=== PATIENT | male | born 1950 | race Caucasian/White ===

== ENCOUNTER → 2018-01-12 11:38 | Outpatient (CLI) | payer MEDICARE, SELFPAY ==
[2018-01-12 13:03] LABS: PSA,Total- Diagnostic 7.74 ng/mL (0.0-4.0)
== END ==
PROVIDERS: Visit Provider Urology
DX: R97.20 Elevated prostate specific antigen [PSA] (principal)
CPT/HCPCS: 36415; 84153

== ENCOUNTER → 2018-02-03 10:14 | Outpatient (CLI) | payer MEDICARE, SELFPAY ==
--- NOTE | 2018-02-03 11:38 | US_ITS ---
STUDY: THYROID ULTRASOUND REASON FOR EXAM: Male, 68 years old. Thyroid nodules TECHNIQUE: Ultrasound evaluation of the thyroid was performed with real-time and static palm-scale imaging. COMPARISON: None. FINDINGS: RIGHT LOBE: The right lobe of the thyroid gland measures 4.5 x 1.5 x 1.9 cm. There is a homogeneous echotexture. There are no demonstrated solid, cystic or complex lesions. LEFT LOBE: The left lobe of the thyroid gland measures 4.5 x 1.6 x 1.9 cm. There are subtle isoechoic nodules within the left thyroid there is a 1.0 x 0.9 x 0.6 cm nodule, 1.5 x 1.0, and 0.7 x 0.5 x 0.7 cm. These appear to be somewhat hypervascular. ISTHMUS: The isthmus measures 3 . The regional lymph nodes are normal. US/Thyroid IMPRESSION: Isodense lobulated appearance of the nodules of the left thyroid. Recommend consideration for follow-up study such as nuclear medicine scan and follow-up ultrasound in 6 months to ensure stability. Comparison to a prior study would be helpful to establish stability. Electronically Signed: Daja Robertson MD at 17:21 EDT Tel , Service support ,
== END ==
PROVIDERS: Family Provider Internal Medicine; PCP Internal Medicine; Visit Provider Internal Medicine Endocrinology, Diabetes & Metabolism
DX: E04.1 Nontoxic single thyroid nodule (principal)
CPT/HCPCS: 76536

== ENCOUNTER → 2018-03-02 10:02 | Outpatient (CLI) | payer MEDICARE, SELFPAY ==
[2018-03-02 11:34] LABS: PSA,Total- Diagnostic 3.41 ng/mL (0.0-4.0)
[2018-03-04 11:16] LABS: PSA, Free 0.84 ng/mL; PSA, Free % 24.7 % (.); PSA, Total Ultrasensitive 3.4 ng/mL (0.0-4.0)
== END ==
PROVIDERS: Family Provider Internal Medicine; PCP Internal Medicine; Visit Provider Urology
DX: R97.20 Elevated prostate specific antigen [PSA] (principal)
CPT/HCPCS: 36415; 84153; 84154

== ENCOUNTER → 2019-03-24 10:44 | Outpatient (CLI) | payer MEDICARE, SELFPAY ==
[2017-02-25 12:58] VITALS: BMI 25.6
[2019-03-24 12:07] LABS: T4 Free Direct 1.26 ng/dL (0.76-1.46); Thyroid Stim Hormone (TSH) 0.57 uIU/mL (0.358-3.74)
== END ==
PROVIDERS: Family Provider Internal Medicine; PCP Family Medicine; Referring Provider Internal Medicine Endocrinology, Diabetes & Metabolism; Visit Provider Internal Medicine Endocrinology, Diabetes & Metabolism
DX: E04.1 Nontoxic single thyroid nodule (principal)
CPT/HCPCS: 36415; 84439; 84443

== ENCOUNTER 2019-06-25 09:08 | Day surgery (SDC) | payer MEDICARE, SELFPAY ==
[2019-06-18 10:09] VITALS: BP 121/77; PULSE 63; RESP 16; TEMP 36.3; O2SAT 99; BMI 25.1
--- NOTE | 2019-06-18 10:22 | SDCEKG_ITS ---
Test Reason : Blood Pressure : / mmHG Vent. Rate : 054 BPM Atrial Rate : 054 BPM P-R Int : 184 ms QRS Dur : 088 ms QT Int : 404 ms P-R-T Axes : 049 036 055 degrees QTc Int : 383 ms Sinus bradycardia Otherwise normal ECG Confirmed by PENNY BURNETT ([id number]), editor trade journal CHUNG ADHIKARI ([id number]) on 06/21/2019 1:59:53 PM Referred By: Karel Black Confirmed By:PENNY BURNETT
[2019-06-18 11:15] LABS: Hematocrit 45.1 % (40-54); Mean Corp Hgb Conc 33.3 g/dL (32-36); Mean Corpuscular Hgb 31.3 pg (27.0-32.0); Mean Corpuscular Volume 94.2 fL (80-94); Mean Platelet Vol. 10.5 fl (6.2-12.0); Platelet Count 242 K/mm3 (150-450); RBC Distribution Width SD 48.7 fl (35.1-43.9); Red Blood Count 4.79 M/mm3 (4.6-6.2); White Blood Count 5.2 K/mm3 (4.4-11.0)
[2019-06-18 11:36] LABS: Anion Gap 5 (5-15); BUN 19 mg/dL (7-18); BUN/Creat Ratio 14.3 RATIO (10-20); Calcium,Total 8.5 mg/dL (8.5-10.1); Chloride 113 mmol/L (98-107); Creatinine, Serum 1.33 mg/dL (0.70-1.30); EST Glomerular Filtration Rate 57 mL/min (>60); Est Glom Filt Rate - Afr Amer 69 mL/min (>60); Estimated Creatinine Clearance 49.01 ml/min; Glucose 105 mg/dL (74-106); Potassium 3.9 mmol/L (3.5-5.1); Sodium Level 142 mmol/L (136-145)
[2019-06-25] VITALS (8 sets, daily range): BP systolic 119–146; BP diastolic 74–90; PULSE 58–69; RESP 16–18; TEMP 36–36.6; O2SAT 96–100; BMI 24.9
--- NOTE | 2019-06-25 12:25 | PROS_PTH ---
PATIENT: LAURY SWIFT LOC: [facility] [place] U#:[id number] AGE/SX: 69/M ROOM: RE06/25/[address]: Dr. Karel Black MD : 1950 BED: DIS: 06/26/2019 SPEC #: [id number] RECD: 06/25/19 16:35 STATUS: JESUS GARCIAJoaquin #: [id number] VENTURA: 06/25/19 12:[address]: Karel Black DEPT: SURGICAL PATHOLOGY RECD BY: Vicky Smith ENTERED: 06/28/19 08:45 SP TYPE: TURP OTHR DR: Dr. Aury Owens MD Tissues: Prostate, NOS Procedures: Surgery Specimen Level IV HEADER OPERATION: Cysto, TUR, prostate, Olympus PRE-OP DIAGNOSIS: Benign prostatic hyperplasia with lower urinary symptoms TISSUE SUBMITTED: Prostate tissue MICROSCOPIC DIAGNOSIS Prostate tissue, TUR: Benign prostatic hyperplasia, glandular and stromal type. Chronic inflammation. Metallic clips and stones (gross only). EDUARD:manjeet 06/29/19 MICROSCOPIC DESCRIPTION Slides are reviewed. GROSS DESCRIPTION Received is one container labeled with the patient's name and designated prostate tissue. The specimen consists of multiple irregular fragments of pink-ulloa, rubbery, soft tissue that in aggregate weigh 5.9 gm and measure in aggregate 4 x 3.5 x 1.5 cm. Six metallic clips are noted. Multiple fragments of brown stones are also noted that in aggregate measure 1 x 0.5 x 0.1 cm and 0.1 to 0.3 cm in greatest dimension. The entire soft tissue is submitted in six cassettes. Metallic clips and the stones are for gross identification only. / EDUARD:manjeet 06/28/19 TC:5 CPT: 24635
[2019-06-25] MEDS: Cefazolin 2 GM in 0.9% Normal Saline 100 ML IV (13:45)
--- NOTE | 2019-06-25 13:59 | DCINST_ITS ---
Discharge Diet: Light diet - advance as tolerated Discharge Activity: Return to Normal Activity Instructions: Transurethral Resection of the Prostate (TURP): Home Recovery Allergies/Adverse Reactions: Allergies No Known Allergies Allergy (Verified 06/25/19 09:37) Medications to take at Discharge Oxybutynin [Ditropan] 5 mg PO DAILY 02/25/17 Tamsulosin HCl [Flomax] 0.4 mg PO DAILY 02/25/17 Levothyroxine [Synthroid] 50 mcg PO DAILY 06/18/19 Ciprofloxacin [Cipro] 500 mg PO BID #14 tab 06/25/19 Ibuprofen 600 mg PO Q4H PRN PRN #20 tab 06/25/19 The following prescriptions were given: Ciprofloxacin [Cipro] 500 mg PO BID #14 tab Prescription Printed Ibuprofen 600 mg PO Q4H PRN PRN #20 tab PRN Reason: Pain Prescription Printed Primary Care Physician: Aury Owesn MD [Primary Care Provider] - Test Results: Test results from this visit will be discussed in further detail at your follow- up appointment, if applicable. Please Follow Up With: Karel Black MD When: in 2 weeks, please call to make an appointment.
--- NOTE | 2019-06-25 14:35 | OP.PCM_ITS ---
Report of Operation Date of Procedure: 06/25/19 Pre-Operative Diagnosis: BPH with obstruction Post-Operative Diagnosis: The same Surgery/Procedure Performed:: Transurethral resection of the prostate Description of Surgical Findings:: 69-year-old male with a history of enlarged prostate presented to the hospital for transurethral resection of the prostate he has a very large prostate is failed medical therapy he also had a UroLift procedure several years ago which is not working anymore. 69-year-old male taken back to the operating room at the smooth induction of general anesthesia he was placed in dorsolithotomy position the penis and testicles were prepped and draped in usual sterile fashion went into the bladder with a 21 Maltese rigid cystourethroscope he had obstructive bilateral hypertrophy. I then pulled out the cystoscope went in with a 26 Maltese rigid resectoscope I first marked out the tissue in front of the sphincter all the way around the brain from the verumontanum to make sure this was a marked out to limit my resection I then resected the 6:[address] up to the 12:00 in the right side and then the cyclic work my way up to 12:00 in the left side I then carefully resected the apical tissue of the flapping tissue to make sure that there was no obstructing tissue make sure this all smooth against the solares during resection I did run across for UroLift clips that were removed. I then Ellik out all the chips of the bladder obtain hemostasis but a catheter in the bladder and continuous bladder irrigation had a nice wide open channel had a good flow and the sphincter was intact and patient was taken back to PACU good condition. Type of Anesthesia:: General Drains: bailey - Admit VTE Documentation VTE Present on Admission: No VTE Mechan Device Prophylaxis: SCD's
[2019-06-25] MEDS: 0.9% Normal Saline 1,000 ML 75 ML IV (16:13)
[2019-06-25] MEDS: Ciprofloxacin 500 MG Tablet PO (21:28)
[2019-06-25] MEDS: Docusate Sodium 100 MG Capsule PO (21:28)
--- NOTE | 2019-06-25 22:10 | NURSING ---
Pt up for first time since surgery. Ambulated from bed to recliner chair; tolerated well. Denies dizziness or lightheadedness. Will continue to monitor.
[2019-06-26 01:45] VITALS: BP 117/81; PULSE 62; RESP 16; TEMP 36.6; O2SAT 99
[2019-06-26] MEDS: 0.9% Normal Saline 1,000 ML 75 ML IV (05:07)
--- NOTE | 2019-06-26 06:10 | NURSING ---
CBI clamped at this time.
[2019-06-26 06:42] LABS: Hematocrit 41.6 % (40-54); Hemoglobin 13.8 g/dL (13.0-16.5); Mean Corp Hgb Conc 33.2 g/dL (32-36); Mean Corpuscular Hgb 31.4 pg (27.0-32.0); Mean Corpuscular Volume 94.8 fL (80-94); Platelet Count 197 K/mm3 (150-450); RBC Distribution Width CV 13.8 % (11.6-14.6); RBC Distribution Width SD 48.3 fl (35.1-43.9); Red Blood Count 4.39 M/mm3 (4.6-6.2); White Blood Count 6.9 K/mm3 (4.4-11.0)
[2019-06-26 07:01] LABS: Anion Gap 6 (5-15); BUN 17 mg/dL (7-18); BUN/Creat Ratio 14.4 RATIO (10-20); Chloride 116 mmol/L (98-107); Creatinine, Serum 1.18 mg/dL (0.70-1.30); EST Glomerular Filtration Rate 65 mL/min (>60); Est Glom Filt Rate - Afr Amer 79 mL/min (>60); Estimated Creatinine Clearance 53.32 ml/min; Glucose 93 mg/dL (74-106); Potassium 4.4 mmol/L (3.5-5.1); Sodium Level 145 mmol/L (136-145)
[2019-06-26 07:45] VITALS: BP 125/73; PULSE 60; RESP 16; TEMP 36.9; O2SAT 98
[2019-06-26 08:00] VITALS: PULSE 80
[2019-06-26] MEDS: Ciprofloxacin 500 MG Tablet PO (09:59)
[2019-06-26] MEDS: Docusate Sodium 100 MG Capsule PO (09:59)
[2019-06-26] MEDS: Pantoprazole Sodium 40 MG Tablet PO (09:59)
== END 2019-06-26 12:35 | disposition home or self-care (01) ==
LOC: SDC 09:09 → AC 09:10 → MS3 09:56
PROVIDERS: Family Provider Family Medicine; PCP Family Medicine; Referring Provider Urology; Visit Provider Urology
PROC: (CPT 52601; principal; 2019-06-25 12:15)
DX: N40.1 Benign prostatic hyperplasia with lower urinary tract symptoms (principal); N13.8 Other obstructive and reflux uropathy; R39.14 Feeling of incomplete bladder emptying; R35.1 Nocturia; E03.9 Hypothyroidism, unspecified; Z79.899 Other long term (current) drug therapy; Z87.891 Personal history of nicotine dependence; Z80.52 Family history of malignant neoplasm of bladder
CPT/HCPCS: 52601; 36415; 80048; 85027; 86850; 86900; 88305; 93005; J7030; J7120

== ENCOUNTER → 2019-09-14 13:33 | Outpatient (CLI) | payer MEDICARE, SELFPAY ==
[2019-06-25 15:56] VITALS: BMI 24.9
[2019-09-14 16:07] LABS: T4 Free Direct 1.12 ng/dL (0.76-1.46); Thyroid Stim Hormone (TSH) 1.21 uIU/mL (0.358-3.74)
== END ==
PROVIDERS: Family Provider Family Medicine; PCP Family Medicine; Referring Provider Internal Medicine Endocrinology, Diabetes & Metabolism; Visit Provider Internal Medicine Endocrinology, Diabetes & Metabolism
DX: E04.1 Nontoxic single thyroid nodule (principal)
CPT/HCPCS: 36415; 84439; 84443

== ENCOUNTER 2019-12-28 17:56 | Inpatient (IN) | payer MEDICARE, SELFPAY ==
[2019-06-25 15:56] VITALS: BMI 24.9
[2019-12-28 17:57] VITALS: BP 148/92; PULSE 94; RESP 18; TEMP 36.6; O2SAT 98; BMI 25.0
--- NOTE | 2019-12-28 18:35 | CT_ITS ---
STUDY: CT ABDOMEN AND PELVIS WITHOUT CONTRAST REASON FOR EXAM: Male, 69 years old. DARK URINE/HEMATURIA. Back and abdomen pain. Prior cholecystectomy. Hx of kidney stones RADIATION DOSAGE (If Supplied By Facility): CTDIvol = ( 7.48 ) mGy, DLP = ( 377.23 ) mGycm TECHNIQUE: Transaxial images were obtained from the dome of the diaphragm to the symphysis pubis without oral contrast, and without intravenous contrast. Sagittal and coronal images were reconstructed. Individualized dose optimization techniques were used for this CT. COMPARISON: None. FINDINGS: The lungs are hyperinflated compatible with COPD. Tiny bilateral pleural effusions are present. Normal liver. No intrahepatic biliary duct dilatation or liver mass. There are surgical clips in the gallbladder fossa consistent with a prior cholecystectomy. There are multiple benign calcified granulomata of the spleen. Normal pancreas. Normal bilateral adrenal glands. Normal right kidney. Normal left kidney. No hydronephrosis or renal masses. No visualized stones. Motion artifact is present across the upper anterior half of the abdomen limiting evaluation. There is a moderate size hiatal hernia composed mostly of the fundus of the stomach. Unremarkable visualized small bowel loops. There are several distal colonic diverticula consistent with diverticulosis. The remaining colonic loops are unremarkable. No bowel dilatation or obstruction. No free air or free fluid. The appendix is visualized and appears normal. There is diffuse atherosclerotic calcification of the abdominal aorta, without a demonstrated aneurysm. Normal inferior vena cava. Normal retroperitoneum. Normal urinary bladder. There are prostatic calcifications. Normal abdominal wall. There are diffuse degenerative changes of the visualized lumbar spine. CT/Abdomen/Pelvis without Cont IMPRESSION: Colonic diverticulosis. Electronically Signed: Alexander Espinoza MD at 20:16 EST , Service support ,
--- NOTE | 2019-12-28 18:36 | EKG12_ITS ---
Test Reason : WEAKNESS Blood Pressure : / mmHG Vent. Rate : 071 BPM Atrial Rate : 071 BPM P-R Int : 172 ms QRS Dur : 082 ms QT Int : 366 ms P-R-T Axes : 027 004 028 degrees QTc Int : 397 ms Normal sinus rhythm Normal ECG Confirmed by PENNY BURNETT ([id number]), loan expeditor CHUNG ADHIKARI ([id number]) on 12/30/2019 9:41:31 AM Referred By: IRLANDA Confirmed By:PENNY BURNETT
--- NOTE | 2019-12-28 18:37 | ED.VIS.GI ---
History of Present Illness Chief Complaint: Complaint Detail of Chief Complaint: dark urine Informant: Patient - Abdominal Pain/Flank Pain Onset: Yesterday Context: Gradual Onset Quality: Aching - myalgias, all over Location: - - mild lower abd aching Current Severity: Mild Maximum Severity: Mild Worsened by: Nothing Relieved by: Nothing - Nausea/Vomiting/Emesis GI Symptom: Negative for: Nausea, Vomiting - Diarrhea/Melena/Hematochezia GI Symptom: Negative for: Diarrhea, Melena, Hematochezia Associated Symptoms: Hematuria. Negative for: Dysuria, Frequency, Urgency Narrative: Patient denies any fevers but has been feeling myalgias all over since yesterday and malaise. He noticed yesterday he was urinating very dark like coffee. He started drinking more water and that cleared up some, and now today he is starting to notice it is red. He denies any clots or urinary retention. He denies any back pain. No dysuria. He had a TURP last year for BPH, noncancerous. Patient denies any recent injury, immobilization, hospitalization. - Past Medical History (1) Hypothyroidism Status: Chronic (2) BPH (benign prostatic hyperplasia) Status: Resolved Past Medical History - Allergies and Home Meds Allergies/Adverse Reactions: Allergies No Known Allergies Allergy (Verified 12/28/19 17:57) Primary Care Physician: Aury Owens MD [Primary Care Provider] - Surgical History: cholecystectomy, TURP Lives: Spouse/ Significant Other Smoking Status: Never smoker Review of Systems General: Reports: Malaise. Denies: Chills, Fever, Sweats Eyes: Denies: Visual changes - bilaterally, Diplopia ENT: Denies: Rhinorrhea, Sore throat Cardiovascular: Denies: Chest pain, Palpitations Respiratory: Denies: Dyspnea, Cough, Dyspnea on exertion Gastrointestinal: Reports: Abdominal pain. Denies: Nausea, Vomiting, Diarrhea, Melena, Hematochezia Genitourinary: Reports: Hematuria. Denies: Dysuria, Frequency Musculoskeletal: Reports: Myalgias. Denies: Arthralgias, Neck pain, Back pain, Swelling, Extremity Pain Skin: Denies: Rash, Wounds Neurological: Denies: Headache, Weakness, Numbness Physical Exam Vital Signs/Narrative: Vital Signs Temp Pulse Resp BP Pulse Ox 12/28/19 17:57 97.9 F 94 18 148/92 H 98 Inital Vital Signs reviewed: Yes General: Well nourished, Well developed, No Acute Distress - well-appearing, nad Head: Normocephalic, Atraumatic Eyes: Perrl, EOMI ENT: Moist mucous membranes, No rhinorrhea Neck: Supple, Nontender Cardiovascular: Regular rate, Regular rhythm, No murmurs Respiratory: No distress, CTA bilaterally, Chest nontender Abdomen: Soft, Nondistended, Normal bowel sounds, Tender - mild suprapubic only; otherwise, NT. Negative for: Guarding, Rebound tenderness, Pulsatile mass Back: Nontender, Normal Inspection. Negative for: CVA tenderness Extremities: Nontender, No edema. Negative for: Calf Tenderness Skin: Normal color, No rash, No Trauma Neurological: Alert, Oriented x3, Cranial nerves II-XII grossly intact, Normal Strength, Normal Sensation, Normal Gait Psychological: Normal affect, Normal Mood Diagnostic/Tx/Re-eval Impressions Abdomen/Pelvis CT 12/28/19 18:35 IMPRESSION: Colonic diverticulosis. Electronically Signed: Alexander Espinoza MD at 20:16 EST , Service support , 12/28/19 18:35 Abdomen/Pelvis without Cont [CT] Stat Laboratory Results 12/28/19 12/28/19 12/28/19 18:50 18:50 18:50 WBC 6.2 RBC 5.03 Hgb 15.2 Hct 45.8 MCV 91.1 MCH 30.2 MCHC 33.2 RDW Std Deviation 43.8 RDW Coeff of Yariel 13.1 Plt Count 200 MPV 10.2 Immature Gran % (Auto) 0.300 Neut % (Auto) 74.0 H Lymph % (Auto) 12.6 L Owen % (Auto) 12.3 H Eos % (Auto) 0.5 Baso % (Auto) 0.3 Absolute Neuts (auto) 4.6 Absolute Lymphs (auto) 0.78 L Nucleated RBC % 0 Sodium 140 Potassium 4.3 Chloride 108 H Carbon Dioxide 24.0 Anion Gap 8 BUN 30 H Creatinine 2.01 H Estim Creat Clear Calc 32.43 Est GFR (MDRD) Af Amer 43 L Est GFR (MDRD) Non-Af 35 L BUN/Creatinine Ratio 14.9 Glucose 117 H Calcium 8.2 L Total Bilirubin 0.20 AST 2577 H ALT 738 H Alkaline Phosphatase 78 Total Creatine Kinase > 28814 H Troponin I 0.060 H Total Protein 6.8 Albumin 3.0 L Globulin 3.8 Albumin/Globulin Ratio 0.8 L Lipase Urine Color Urine Clarity Urine pH Ur Specific [place] Urine Protein Urine Glucose (UA) Urine Ketones Urine Occult Blood Urine Nitrite Urine Bilirubin Urine Urobilinogen Ur Leukocyte Esterase Urine RBC Urine WBC Ur Squamous Epith Cells Urine Bacteria Coarse Granular Casts Urine Mucus 12/28/19 12/28/19 18:50 18:50 WBC RBC Hgb Hct MCV MCH MCHC RDW Std Deviation RDW Coeff of Yariel Plt Count MPV Immature Gran % (Auto) Neut % (Auto) Lymph % (Auto) Owen % (Auto) Eos % (Auto) Baso % (Auto) Absolute Neuts (auto) Absolute Lymphs (auto) Nucleated RBC % Sodium Potassium Chloride Carbon Dioxide Anion Gap BUN Creatinine Estim Creat Clear Calc Est GFR (MDRD) Af Amer Est GFR (MDRD) Non-Af BUN/Creatinine Ratio Glucose Calcium Total Bilirubin AST ALT Alkaline Phosphatase Total Creatine Kinase Troponin I Total Protein Albumin Globulin Albumin/Globulin Ratio Lipase 129 Urine Color Kailey Urine Clarity Cloudy Urine pH 6.0 Ur Specific [place] 1.015 Urine Protein 500 H Urine Glucose (UA) Normal Urine Ketones 5 H Urine Occult Blood 250 H Urine Nitrite Negative Urine Bilirubin Negative Urine Urobilinogen Normal Ur Leukocyte Esterase 25 H Urine RBC 0 SEEN Urine WBC 0-5 SEEN Ur Squamous Epith Cells 0 SEEN Urine Bacteria 1+ Coarse Granular Casts 0-5 SEEN Urine Mucus 0 SEEN - Medical Decision Making Urinalysis does show blood, but there are no red blood cells. Accordingly, his CPK returned extremely elevated, over 80,000, as above. His kidney function is acutely abnormal, likely as a result. IV fluids were given prior to the work-up being back and continued afterwards. I performed a CT given his hematuria prior to knowing the results of these other labs, it shows no mass or acute abnormality, incidental diverticulosis is noted which is probably not related to the presentation here. The patient's medications were reviewed and he is not on a statin medication. Only Synthroid at this time. The plan is for admission to the hospital, routine nephrology consult and further treatment. ED Disposition - Plan for ED Patient: Disposition: [facility] Diagnosis: Acute renal failure, Rhabdomyolysis, Elevated liver enzymes, Myoglobinuria Referrals: Aury Owens MD [Primary Care Provider] -
[2019-12-28] MEDS: Acetaminophen 500 MG Tablet 1000 MG PO (18:54)
--- NOTE | 2019-12-28 18:54 | ED.RN ---
PULLED OLD EKG FROM [facility]
[2019-12-28 18:57] LABS: Mucous, Urine 0 SEEN /hpf (<or=2+); Red Blood Cells-Urine 0 SEEN /hpf (0-5); Squamous Epithelial Cells - UA 0 SEEN /hpf (0-5)
[2019-12-28 19:00] LABS: Absolute Lymphocyte Count 0.78 X10^3/uL (0.83-4.51); Absolute Neutrophil Count 4.6 X10^3/uL (2.0-7.7); Basophil# 0.02 X10^3/uL; Basophil% 0.3 % (0-1); Eosinophil# 0.03 X10^3/uL; Eosinophils% 0.5 % (0-5); Hematocrit 45.8 % (40-54); Hemoglobin 15.2 g/dL (13.0-16.5); Lymphocyte # 0.78 X10^3/ul (4.0); Lymphocyte % 12.6 % (19-41); Mean Corp Hgb Conc 33.2 g/dL (32-36); Mean Corpuscular Hgb 30.2 pg (27.0-32.0); Mean Corpuscular Volume 91.1 fL (80-94); Mean Platelet Vol. 10.2 fl (6.2-12.0); Monocyte# 0.76 X10^3/uL; Monocyte% 12.3 % (0-10); NRBC Flagged by Analyzer 0 % (0-5); Neutrophil # 4.57 X10^3/uL (2.7-7.7); Platelet Count 200 K/mm3 (150-450); RBC Distribution Width CV 13.1 % (11.6-14.6); RBC Distribution Width SD 43.8 fl (35.1-43.9); Red Blood Count 5.03 M/mm3 (4.6-6.2); White Blood Count 6.2 K/mm3 (4.4-11.0)
[2019-12-28 19:01] LABS: Color, Urine Amber (Yellow); Glucose, Dipstick Normal (Normal); Ketone-Dipstick 5 mg/dl (Negative); Leukocyte Esterase-Dipstick 25 /ul (Negative); Nitrite-Dipstick Negative (Negative); Occult Blood-Urine 250 /ul (Negative); Protein-Dipstick 500 mg/dl (Negative); Specific Gravity, Urine 1.015 (1.002-1.030); Urine Bilirubin Dipstick Negative (Negative); Urine Clarity Cloudy (Clear); Urine Urobilinogen Normal (Normal)
[2019-12-28 19:21] LABS: Bacteria 1+ /hpf (None Seen); Coarse Granular Cast 0-5 SEEN /lpf (0-5 /lpf); White Blood Cells 0-5 SEEN /hpf (0-5)
[2019-12-28 19:30] LABS: ALB/GLOB Ratio 0.8 RATIO (0.9-2.4); AST(SGOT) 2577 U/L (15-37); Alanine Aminotransfer ALT/SGPT 738 U/L (16-61); Alkaline Phosphatase 78 U/L (45-117); Anion Gap 8 (5-15); BUN 30 mg/dL (7-18); BUN/Creat Ratio 14.9 RATIO (10-20); Calcium,Total 8.2 mg/dL (8.5-10.1); Chloride 108 mmol/L (98-107); Creatinine, Serum 2.01 mg/dL (0.70-1.30); EST Glomerular Filtration Rate 35 mL/min (>60); Est Glom Filt Rate - Afr Amer 43 mL/min (>60); Estimated Creatinine Clearance 32.43 ml/min; Globulin 3.8 g/dL (2.2-4.2); Glucose 117 mg/dL (74-106); Potassium 4.3 mmol/L (3.5-5.1); Protein, Total 6.8 g/dL (6.4-8.2); Sodium Level 140 mmol/L (136-145)
[2019-12-28 20:23] VITALS: BP 147/94; PULSE 77; RESP 16; O2SAT 98
--- NOTE | 2019-12-28 21:26 | ED.RN ---
called lab to inquire about pending lab results
[2019-12-28 21:28] LABS: CPK Total, Creatine Kinase > 80000 U/L (39-308)
[2019-12-28 21:29] LABS: Lipase 129 U/L (73-393)
--- NOTE | 2019-12-28 21:46 | PCM.HP.STD ---
Problem List (1) Hypothyroidism Status: Chronic (2) Acute renal failure Status: Acute (3) Rhabdomyolysis Status: Acute (4) Elevated liver enzymes Status: Acute (5) Myoglobinuria Status: Acute History of Present Illness Date of Admission: 12/28/19 Chief Complaint: Dark urine The patient is a 69 year old M with a significant history of BPH status post TURP; and hypothyroidism who presents emergency department with dark urine that started 2 days before presentation. Associated with his symptoms is a soreness of his abdomen. Patient was found to have elevated troponin; elevated CPK; elevated liver enzymes; urine occult blood without any RBC. Past Medical History Past Medical History (Chronic Problems): Chronic Problems Hypothyroidism (Chronic) Allergies No Known Allergies Allergy (Verified 12/28/19 17:57) Home Medications: Ambulatory Orders Medication Instructions Recorded Levothyroxine [Synthroid] 50 mcg PO DAILY 06/18/19 Ibuprofen 600 mg PO Q4H PRN PRN #20 tab 06/25/19 Surgical History: cholecystectomy, TURP Lives: Spouse/ Significant Other Smoking Status: Former smoker Alcohol: None - *Family History Maternal History Items: Heart Disease Paternal History Items: Cancer Review of Systems Constitutional: Denies: Chills, Fever, Weight Change HEENT: Denies: Head Aches, Sinus Congestion, Sinus Drainage Cardiovascular: Denies: Chest Pain, Palpitations Respiratory: Denies: Cough, Shortness of breath at rest, Sputum production Gastrointestinal: Reports: Abdominal Pain - Soreness. Denies: Nausea, Vomiting Genitourinary: Reports: - - Dark urine. Denies: Dysuria Musculoskeletal: Denies: Joint Pain, Joint Tenderness Skin: Denies: Rash, Wounds Neurological: Denies: Numbness, Tingling, Focal weakness Psychiatric: Denies: Anxiety, Depression, Homicidal Ideations, Suicidal Ideations Hematologic/ Lymphatic: Denies: Easy Bruising, Easy Bleeding VTE Information - Inpt Only VTE Present on Admission: No VTE Mechan Device Prophylaxis: None VTE Pharm Prophylaxis ordered?: Yes Patient Problems: Active and Suspected Problems Acute renal failure (Acute) Rhabdomyolysis (Acute) Elevated liver enzymes (Acute) Myoglobinuria (Acute) - Physical Exam Vitals/I&O's: Vital Signs Temp Pulse Resp BP Pulse Ox 97.9 F 77 16 147/94 H 98 12/28/19 17:57 12/28/19 20:23 02/18/20 20:23 12/28/19 20:23 12/28/19 20:23 Oxygen Delivery Method Room Air Weight: 72.575 kg Body Mass Index (BMI) 25.0 General: Alert, Oriented x3, Cooperative HEENT: Atraumatic, PERRLA, EOMI, Normocephalic Neck: Supple, No JVD, Negative Carotid Bruits Lungs: Clear to auscultation, Normal air movement Cardiovascular: Regular rate, Normal S1, Normal S2, No murmurs Abdomen: Bowel Sounds Present, Soft, Non Tender Extremities: No edema, Capillary Refill Less than 3 Seconds Skin: No rashes, No breakdown Musculoskeletal: No Tenderness to Palpation of Joints or Extremities Neurological: Cranial nerves II-XII grossly intact Psych/Mental Status: Normal Affect, Appropriate Laboratory Results 12/28/19 18:50: WBC 6.2, RBC 5.03, Hgb 15.2, Hct 45.8, MCV 91.1, MCH 30.2, MCHC 33.2, RDW Std Deviation 43.8, RDW Coeff of Yariel 13.1, Plt Count 200, MPV 10.2, Immature Gran % (Auto) 0.300, Neut % (Auto) 74.0 H, Lymph % (Auto) 12.6 L, [place] % (Auto) 12.3 H, Eos % (Auto) 0.5, Baso % (Auto) 0.3, Absolute Neuts (auto) 4.6, Absolute Lymphs (auto) 0.78 L, Nucleated RBC % 0 12/28/19 18:50: Sodium 140, Potassium 4.3, Chloride 108 H, Carbon Dioxide 24.0, Anion Gap 8, BUN 30 H, Creatinine 2.01 H, Estim Creat Clear Calc 32.43, Est GFR (MDRD) Af Amer 43 L, Est GFR (MDRD) Non-Af 35 L, BUN/Creatinine Ratio 14.9, Glucose 117 H, Calcium 8.2 L, Total Bilirubin 0.20, AST 2577 H, ALT 738 H, Alkaline Phosphatase 78, Troponin I 0.060 H, Total Protein 6.8, Albumin 3.0 L, Globulin 3.8, Albumin/Globulin Ratio 0.8 L 12/28/19 18:50: Total Creatine Kinase > 41156 H 12/28/19 18:50: Urine Color Kailey, Urine Clarity Cloudy, Urine pH 6.0, Ur Specific [place] 1.015, Urine Protein 500 H, Urine Glucose (UA) Normal, Urine Ketones 5 H, Urine Occult Blood 250 H, Urine Nitrite Negative, Urine Bilirubin Negative, Urine Urobilinogen Normal, Ur Leukocyte Esterase 25 H, Urine RBC 0 SEEN, Urine WBC 0-5 SEEN, Ur Squamous Epith Cells 0 SEEN, Urine Bacteria 1+, Coarse Granular Casts 0-5 SEEN, Urine Mucus 0 SEEN 12/28/19 18:50: Lipase 129 Current Medications Sodium Chloride 1,000 ml/ N/A 1,000 mls @ 72.575 mls/hr IV .[id number] ANUP Stop: 12/29/19 18:36 Last Admin: 12/28/19 18:54 Dose: 1 ml/kg/hr, 72.6 mls/hr Documented by: Sodium Chloride () 1,000 mls @ 250 mls/hr IV .Q4H [facility] Assessment/Plan All Active Problems BPH (benign prostatic hyperplasia) (Resolved) Acute renal failure (Acute) Rhabdomyolysis (Acute) Elevated liver enzymes (Acute) Myoglobinuria (Acute) The patient is a 69 year old M with a significant history of BPH status post TURP; and hypothyroidism who presents emergency department with dark urine that started 2 days before presentation; soreness of his abdomen; elevated troponin; elevated CPK; elevated liver enzymes; urine occult blood without any RBC consistent with rhabdomyolysis. Rhabdomyolysis Patient with elevated troponin; elevated CPK; elevated liver enzymes; urine occult blood without any RBC consistent with rhabdomyolysis. Patient reports that he has had multiple episodes of these many years ago. He denies any recent immobilization or exertion. IV fluids started emergency department. Continue normal saline infusion Will check ALYSSIA and aldolase. Elevated liver enzymes consistent with rhabdomyolysis. However will check acute hepatitis panel. Trend CPK Elevated troponin EKG shows sinus rhythm Place on telemetry Trend troponin. Likely due to rhabdomyolysis. KAREN Creatinine was 2.01 Review of old records shows that his creatinine on 06/26/2019 was 1.18. Likely secondary to Rhabdomyolysis. IV fluids as above. Avoid nephrotoxins Trend CMP. Hypothyroidism Synthroid continued Prophylaxis Subcutaneous Lovenox Code Visit Inpatient E&M: 35060 Init Hosp L3
[2019-12-28 22:13] VITALS: BP 152/94; PULSE 70; RESP 15; TEMP 37.1; O2SAT 98
[2019-12-28] MEDS: 0.9% Normal Saline 1,000 ML 250 ML IV (22:17)
[2019-12-28 22:18] VITALS: BP 152/94; PULSE 70; RESP 15; TEMP 37.1; O2SAT 98
[2019-12-28 22:59] VITALS: BP 151/93; PULSE 72; RESP 16; TEMP 36.6; O2SAT 99
[2019-12-28 23:00] VITALS: BMI 25.0
[2019-12-28 23:11] VITALS: BMI 25.1
[2019-12-29] VITALS (10 sets, daily range): BP systolic 145–151; BP diastolic 81–96; PULSE 65–84; RESP 16–18; TEMP 36.5–36.9; O2SAT 97–100
[2019-12-29] MEDS: 0.9% Normal Saline 1,000 ML 150 ML IV (02:47)
[2019-12-29 05:35] LABS: Absolute Lymphocyte Count 1.09 X10^3/uL (0.83-4.51); Absolute Neutrophil Count 2.8 X10^3/uL (2.0-7.7); Basophil# 0.02 X10^3/uL; Basophil% 0.4 % (0-1); Eosinophil# 0.03 X10^3/uL; Eosinophils% 0.7 % (0-5); Hematocrit 40.4 % (40-54); Lymphocyte # 1.09 X10^3/ul (4.0); Lymphocyte % 24.1 % (19-41); Mean Corp Hgb Conc 32.2 g/dL (32-36); Mean Corpuscular Hgb 29.5 pg (27.0-32.0); Mean Corpuscular Volume 91.6 fL (80-94); Mean Platelet Vol. 10.3 fl (6.2-12.0); Monocyte# 0.62 X10^3/uL; Monocyte% 13.7 % (0-10); NRBC Flagged by Analyzer 0 % (0-5); Neutrophil # 2.75 X10^3/uL (2.7-7.7); Neutrophil % 60.9 % (47-70); Platelet Count 183 K/mm3 (150-450); RBC Distribution Width CV 13.2 % (11.6-14.6); RBC Distribution Width SD 44.9 fl (35.1-43.9); Red Blood Count 4.41 M/mm3 (4.6-6.2); White Blood Count 4.5 K/mm3 (4.4-11.0)
[2019-12-29 05:41] LABS: International Normalized Ratio 1.1; Prothrombin Time (Protime)PT. 13.9 SECONDS (11.7-14.9)
[2019-12-29] MEDS: Levothyroxine 50 MCG Tablet PO (05:44)
[2019-12-29 06:27] LABS: ALB/GLOB Ratio 0.8 RATIO (0.9-2.4); AST(SGOT) 2502 U/L (15-37); Alanine Aminotransfer ALT/SGPT 791 U/L (16-61); Albumin, Serum 2.5 g/dL (3.2-5.0); Alkaline Phosphatase 64 U/L (45-117); Anion Gap 5 (5-15); BUN 32 mg/dL (7-18); BUN/Creat Ratio 15.7 RATIO (10-20); Calcium,Total 7.7 mg/dL (8.5-10.1); Chloride 115 mmol/L (98-107); Creatinine, Serum 2.04 mg/dL (0.70-1.30); EST Glomerular Filtration Rate 35 mL/min (>60); Est Glom Filt Rate - Afr Amer 42 mL/min (>60); Estimated Creatinine Clearance 31.95 ml/min; Globulin 3.2 g/dL (2.2-4.2); Glucose 99 mg/dL (74-106); Potassium 4.3 mmol/L (3.5-5.1); Protein, Total 5.7 g/dL (6.4-8.2); Sodium Level 142 mmol/L (136-145)
[2019-12-29] MEDS: 0.9% Normal Saline 1,000 ML 250 ML IV ×2 (09:02→13:19)
[2019-12-29] MEDS: Enoxaparin 40 MG/0.4 ML Syringe SC (10:30)
--- NOTE | 2019-12-29 11:25 | CASEMGMT ---
RN CM Face to Face with patient for initial transition planning/care coordination assessment. RN CM introduced self and role at [facility]. Patient lying in bed, alert and oriented. Patient willing to participate in assessment and is able to answer all questions appropriately. Care providers, pharmacy, and demographics verified. Patient wishes to discharge home, denies need for home health at this time. Patient states he has no further needs or concerns at this time. CM to follow for discharge planning needs that may arise. PCP: Roman Specialists: Sofia, urologist; Shantanu, neurology Preferred Pharmacy: [facility] Insurance: [employer] Prescription Benefit: yes Living Will/HPOA: yes, Leelee Reid LNOK: Living Arrangements: Patient lives with in 1 story home with no steps to enter the home. Patient states that he is independent at home. Transportation: self/ DME/HHC: Patient denies need for DME or HHC Disposition Plan: Patient to discharge home in family support and follow-up plans in place. Mira HOLTN, RN, CM
--- NOTE | 2019-12-29 13:24 | CHAPLAIN ---
Type of Pastoral Visit _x__ Initial Visit ___ Follow-up Visit ___ On-call Visit ___ General Patient Visit ___ Spiritual Assessment ___ Family Conference ___ Bereavement ___ Rapid Response ___ Code Blue ___ Other (describe below) Pastoral Care Referral From _x__ Patient ___ Family ___ Nurse ___ Physician ___ Hat Sizer ___ Master Cosmetologist ___ Other (describe below) Sacrament/Intervention _x__ Active listening ___ Anointing ___ Jain ___ Bereavement ___ Communion ___ Leah exploration ___ _x__ Life review _x__ Prayer ___ Reconciliation ___ Sacrament of Sick _x__ Supportive presence ___ Wedding ___ Other (describe below) Pastoral Comments
[2019-12-29] MEDS: oxyCODONE 5 MG Tablet PO (14:07)
--- NOTE | 2019-12-29 14:18 | PN_ITS ---
Patient Problems: Active and Suspected Problems Acute renal failure (Acute) Rhabdomyolysis (Acute) Elevated liver enzymes (Acute) Myoglobinuria (Acute) Reason for Visit: Follow-up on rhabdomyolysis Subjective: Patient was seen and examined. He complains of generalized aches. Denied any fever or chills. Denied any use of illicit drugs. Denied any new medications, no use of statins. Vitals/I&O's: Vital Signs Temp Pulse Resp BP Pulse Ox 98.5 F 65 16 151/96 H 100 12/29/19 14:08 12/29/19 14:08 12/29/19 14:08 12/29/19 14:08 12/29/19 14:08 Oxygen Delivery Method Room Air Weight: 72.6 kg Body Mass Index (BMI) 25.0 Intake and Output for Last 24 Hours 12/27/19 12/28/19 12/29/19 23:59 23:59 23:59 Intake Total 1416.67 / 1616.67 3505 / 3505 Output Total 550 / 550 Balance 1416.67 / 1616.67 2955 / 2955 General: Alert, Oriented x3, Cooperative, No apparent distress HEENT: Atraumatic, PERRLA, EOMI, Normocephalic Oral: Moist Mucosa Neck: Supple Lungs: Clear to auscultation, Normal air movement Cardiovascular: Regular rate, Regular Rhythm, Normal S1, Normal S2, No murmurs Abdomen: Bowel Sounds Present, Soft, Non Tender, Non-Distended, No Hepato- splenomegaly Extremities: No edema Skin: No rashes, No breakdown Musculoskeletal: No Tenderness to Palpation of Joints or Extremities Lymphatic: No Cervical, Supraclavicular, or Inguinal Adenopathy Neurological: Cranial nerves II-XII grossly intact, Neuro grossly intact Psych/Mental Status: Normal Affect, Appropriate Laboratory Results 12/28/19 18:50: WBC 6.2, RBC 5.03, Hgb 15.2, Hct 45.8, MCV 91.1, MCH 30.2, MCHC 33.2, RDW Std Deviation 43.8, RDW Coeff of Yariel 13.1, Plt Count 200, MPV 10.2, Immature Gran % (Auto) 0.300, Neut % (Auto) 74.0 H, Lymph % (Auto) 12.6 L, [place] % (Auto) 12.3 H, Eos % (Auto) 0.5, Baso % (Auto) 0.3, Absolute Neuts (auto) 4.6, Absolute Lymphs (auto) 0.78 L, Nucleated RBC % 0 12/28/19 18:50: Sodium 140, Potassium 4.3, Chloride 108 H, Carbon Dioxide 24.0, Anion Gap 8, BUN 30 H, Creatinine 2.01 H, Estim Creat Clear Calc 32.43, Est GFR (MDRD) Af Amer 43 L, Est GFR (MDRD) Non-Af 35 L, BUN/Creatinine Ratio 14.9, Glucose 117 H, Calcium 8.2 L, Total Bilirubin 0.20, AST 2577 H, ALT 738 H, Alkaline Phosphatase 78, Troponin I 0.060 H, Total Protein 6.8, Albumin 3.0 L, Globulin 3.8, Albumin/Globulin Ratio 0.8 L 12/28/19 18:50: Total Creatine Kinase > 70350 H 12/28/19 18:50: Urine Color Kailey, Urine Clarity Cloudy, Urine pH 6.0, Ur Specific [place] 1.015, Urine Protein 500 H, Urine Glucose (UA) Normal, Urine Ketones 5 H, Urine Occult Blood 250 H, Urine Nitrite Negative, Urine Bilirubin Negative, Urine Urobilinogen Normal, Ur Leukocyte Esterase 25 H, Urine RBC 0 SEEN, Urine WBC 0-5 SEEN, Ur Squamous Epith Cells 0 SEEN, Urine Bacteria 1+, Coarse Granular Casts 0-5 SEEN, Urine Mucus 0 SEEN 12/28/19 18:50: Lipase 129 12/29/19 00:05: Troponin I 0.066 H 12/29/19 03:26: Troponin I 0.069 H 12/29/19 05:18: Hepatitis A IgM Ab Pending, Hep Bs Antigen Pending, Hep B Core IgM Ab Pending, Hepatitis C Ab (EIA) Pending 12/29/19 05:18: WBC 4.5, RBC 4.41 L, Hgb 13.0, Hct 40.4, MCV 91.6, MCH 29.5, MCHC 32.2, RDW Std Deviation 44.9 H, RDW Coeff of Yariel 13.2, Plt Count 183, MPV 10.3, Immature Gran % (Auto) 0.200, Neut % (Auto) 60.9, Lymph % (Auto) 24.1, [place] % (Auto) 13.7 H, Eos % (Auto) 0.7, Baso % (Auto) 0.4, Absolute Neuts (auto) 2.8, Absolute Lymphs (auto) 1.09, Nucleated RBC % 0 12/29/19 05:18: PT 13.9, INR 1.1 12/29/19 05:18: Sodium 142, Potassium 4.3, Chloride 115 H, Carbon Dioxide 22.0, Anion Gap 5, BUN 32 H, Creatinine 2.04 H, Estim Creat Clear Calc 31.95, Est GFR (MDRD) Af Amer 42 L, Est GFR (MDRD) Non-Af 35 L, BUN/Creatinine Ratio 15.7, Glucose 99, Calcium 7.7 L, Total Bilirubin 0.20, AST 2502 H, ALT 791 H, Alkaline Phosphatase 64, Total Creatine Kinase 52460 H, Troponin I 0.055 H, Total Protein 5.7 L, Albumin 2.5 L, Globulin 3.2, Albumin/Globulin Ratio 0.8 L 12/29/19 05:18: ALYSSIA Screen Pending, LISA-1 Antibody Pending, SS-A/Ro IgG Antibody Pending, SS-B/La IgG Antibody Pending, Sm (Esteban) Antibody Pending, TOOL SUPERVISOR Antibody Pending, Scl-70 Scleroderma Ab Pending, Double Strand DNA Ab Pending, Centromere B Antibody Pending 12/29/19 05:18: Aldolase Pending Current Medications Enoxaparin Sodium (Lovenox) 40 mg SC DAILY [facility] Last Admin: 12/29/19 10:30 Dose: 40 mg Documented by: Glucagon () 1 mg IM .X1 PRN PRN Reason: Hypoglycemia Dextrose (Dextrose 10%-Water) 250 mls @ 999 mls/hr IV .Q16M PRN; Protocol PRN Reason: HYPOGLYCEMIA Sodium Chloride () 250 mls @ 15 mls/hr IV .[id number] PRN PRN Reason: Saline Flush Sodium Chloride () 1,000 mls @ 250 mls/hr IV .Q4H [facility] Last Admin: 12/29/19 13:19 Dose: 250 mls/hr Documented by: Levothyroxine Sodium (Synthroid) 50 mcg PO DAILY@0600 [facility] Last Admin: 12/29/19 05:44 Dose: 50 mcg Documented by: Melatonin (Melatonin) 3 mg PO QHS PRN PRN PRN Reason: INSOMNIA Ondansetron HCl (Zofran) 4 mg IV Q8H PRN PRN PRN Reason: NAUSEA/VOMITING Sodium Chloride () 10 - 40 ml IV UD PRN PRN Reason: SALINE FLUSH STROKE Vital Signs/Narrative: Vital Signs Temp Pulse Resp BP Pulse Ox 12/29/19 14:08 98.5 F 65 16 151/96 H 100 12/29/19 12:00 79 12/29/19 10:25 97.7 F L 77 18 145/81 H 97 Medical Necessity - Tobacco Use Smoking Status: Former smoker Tobacco Use: Cigarettes Assessment/Plan All Active Problems BPH (benign prostatic hyperplasia) (Resolved) Acute renal failure (Acute) Rhabdomyolysis (Acute) Elevated liver enzymes (Acute) Myoglobinuria (Acute) 1. Acute rhabdomyolysis, admitting CK was more than 80,000, nontraumatic, not on statins, no use of illicit drugs Unclear etiology, work-up for inflammatory myositis pending Continue on aggressive IV fluids, repeat CK in a.m. 2. Acute kidney injury on CKD stage III, secondary to #1, slight creatinine is 1.1, admitted with creatinine of 2.01 Continue with aggressive IV fluids, repeat blood work in a.m., if renal function continues to deteriorate, will consult nephrology 3. Elevated troponins, indeterminate, in the absence of symptoms, related to #1 and 2 Will continue to monitor 4. Hypothyroidism, on Synthroid, will check TSH 5. Elevated liver function tests, elevated AST/ALT, likely related to rhabdomyolysis, total bilirubin is normal, ALP is normal Hepatitis profile is pending, liver appeared normal on CT. No intrahepatic biliary duct dilatation or liver mass. 6. DVT PPx- Lovenox SC - will monitor renal function and change accordingly Code Visit Inpatient E&M: 46269 Subs Hosp L2
[2019-12-29 15:22] LABS: Thyroid Stim Hormone (TSH) 2.25 uIU/mL (0.358-3.74)
[2019-12-29 15:48] LABS: ALB/GLOB Ratio 0.7 RATIO (0.9-2.4); AST(SGOT) 2603 U/L (15-37); Alanine Aminotransfer ALT/SGPT 857 U/L (16-61); Albumin, Serum 2.3 g/dL (3.2-5.0); Alkaline Phosphatase 64 U/L (45-117); Anion Gap 4 (5-15); BUN 32 mg/dL (7-18); Calcium,Total 7.7 mg/dL (8.5-10.1); Chloride 119 mmol/L (98-107); Creatinine, Serum 2.29 mg/dL (0.70-1.30); EST Glomerular Filtration Rate 30 mL/min (>60); Est Glom Filt Rate - Afr Amer 37 mL/min (>60); Estimated Creatinine Clearance 28.46 ml/min; Globulin 3.1 g/dL (2.2-4.2); Glucose 89 mg/dL (74-106); Potassium 4.7 mmol/L (3.5-5.1); Protein, Total 5.4 g/dL (6.4-8.2); Sodium Level 146 mmol/L (136-145)
[2019-12-29] MEDS: 0.45% Normal Saline 1,000 ML 250 ML IV ×2 (17:07→21:42)
[2019-12-29 20:35] LABS: Amphetamine Urine VISTA NEGATIVE (<1000 ng/mL); Barbiturate Urine VISTA NEGATIVE (< 200 ng/mL); Benzodiazepine Urine VISTA NEGATIVE (< 200 ng/mL); Cocaine Urine VISTA NEGATIVE (< 300 ng/mL); Ecstacy Urine VISTA NEGATIVE (< 500 ng/mL); Methadone Urine VISTA NEGATIVE (< 300 ng/mL); PCP Urine VISTA NEGATIVE (< 25 ng/mL); THC Urine VISTA NEGATIVE (< 50 ng/mL); Vista UDS pH Range 5
[2019-12-30] VITALS (11 sets, daily range): BP systolic 136–161; BP diastolic 73–94; PULSE 60–79; RESP 16–18; TEMP 36.6–36.9; O2SAT 99–100
[2019-12-30] MEDS: 0.45% Normal Saline 1,000 ML 250 ML IV ×4 (01:45→14:05)
--- NOTE | 2019-12-30 03:33 | PCM.PN.BLA ---
Progress Note Notified that patient influenza test returned positive. Upon review patient is positive for influenza A (subtype H1). Will start on Tamiflu adjusted by creatinine clearance. STROKE Vital Signs/Narrative: Vital Signs Temp Pulse Resp BP Pulse Ox 12/30/19 01:46 98.1 F 60 16 138/82 H 99 12/30/19 01:31 67
[2019-12-30] MEDS: Oseltamivir Phosphate 30 MG Capsule PO (04:48)
[2019-12-30] MEDS: Levothyroxine 50 MCG Tablet PO (04:48)
[2019-12-30 05:06] LABS: HEPATITIS B SURFACE AG Negative (Negative); Hepatitis A IgM Antibody Negative (Negative); Hepatitis B Core AB IgM Negative (Negative)
[2019-12-30 05:41] LABS: Absolute Lymphocyte Count 1.08 X10^3/uL (0.83-4.51); Absolute Neutrophil Count 2.5 X10^3/uL (2.0-7.7); Basophil# 0.01 X10^3/uL; Basophil% 0.2 % (0-1); Eosinophil# 0.07 X10^3/uL; Eosinophils% 1.7 % (0-5); Hemoglobin 12.2 g/dL (13.0-16.5); Lymphocyte # 1.08 X10^3/ul (4.0); Lymphocyte % 25.5 % (19-41); Mean Corp Hgb Conc 32.1 g/dL (32-36); Mean Corpuscular Hgb 30.1 pg (27.0-32.0); Mean Corpuscular Volume 93.8 fL (80-94); Mean Platelet Vol. 10.4 fl (6.2-12.0); Monocyte# 0.55 X10^3/uL; NRBC Flagged by Analyzer 0 % (0-5); Neutrophil # 2.52 X10^3/uL (2.7-7.7); Neutrophil % 59.6 % (47-70); Platelet Count 166 K/mm3 (150-450); Red Blood Count 4.05 M/mm3 (4.6-6.2); White Blood Count 4.2 K/mm3 (4.4-11.0)
[2019-12-30 06:43] LABS: Albumin, Serum 2.2 g/dL (3.2-5.0); BUN 34 mg/dL (7-18); Calcium,Total 7.5 mg/dL (8.5-10.1); Chloride 117 mmol/L (98-107); Creatinine, Serum 2.13 mg/dL (0.70-1.30); EST Glomerular Filtration Rate 33 mL/min (>60); Est Glom Filt Rate - Afr Amer 40 mL/min (>60); Glucose 81 mg/dL (74-106); Phosphorus 3.4 mg/dL (2.5-4.9); Potassium 4.5 mmol/L (3.5-5.1); Sodium Level 142 mmol/L (136-145)
[2019-12-30 09:23] LABS: AST(SGOT) 2272 U/L (15-37); Alanine Aminotransfer ALT/SGPT 984 U/L (16-61); Albumin, Serum 2.5 g/dL (3.2-5.0); Alkaline Phosphatase 68 U/L (45-117); Bilirubin, Direct 0.06 mg/dL (0.00-0.30); Globulin 2.7 g/dL (2.2-4.2); Protein, Total 5.2 g/dL (6.4-8.2)
[2019-12-30] MEDS: Enoxaparin 40 MG/0.4 ML Syringe SC (09:54)
[2019-12-30 10:15] LABS: CPK Total, Creatine Kinase 53670 U/L (39-308)
[2019-12-30 11:33] LABS: Hemoglobin A1c 5.6 % (4.2-6.3)
[2019-12-30 12:29] LABS: HIV - WCH Non-Reactive (Nonreactive)
--- NOTE | 2019-12-30 14:16 | NURSING ---
reviewed and agree with documentation by PRASAD Gay from 12/29/2019
[2019-12-30 15:32] LABS: ANTINUCLEAR ANTIBODIES DIRECT Negative (Negative)
[2019-12-30 15:35] LABS: Hep C Antibodies <0.1 s/co ratio (0.0-0.9)
--- NOTE | 2019-12-30 15:50 | CON.PCM_ITS ---
Consultation - Renal 12/30/19 PCP/ Referring MD: Requesting physician: [] Primary care physician: Aury Owens MD Reason for Consultation:: KAREN, rhabdomyolysis - History of Present Illness History of Present Illness: The patient is a 69 year old M who presented to the emergency room on December 28 for dark, black-colored urine for 24 hours prior to admission. He denied any drop in urine volume. He was found to be in acute renal failure with a creatinine of 2.2 with acute rhabdomyolysis with CPK greater than 80,000. His liver enzymes were elevated as well on admission and remains elevated but trending down. He has no prior history of liver disease. He noticed muscle weakness and pain around his lower abdomen andside sides and legs with ambulation. He had shoulder pain, neck pain, arm pain. He denied any fever or chills. Denied cough. He had no symptoms of nausea, vomiting, or diarrhea. He has a history of recurrent muscle weakness about 6 times in his lifetime with unclear reasons. He did admit to sick contact at home. His was diagnosed with influenza recently by urgent care. He tested positive for influenza A on admission. Urine tox screen was unremarkable. CT abdomen showed normal kidneys bilaterally. He had no history of statin therapy or NSAID use. He uses a protein supplement for years called [employer]. He denies any abdominal distention. Denied any lightheadedness, near syncope, palpitations, chest pain or syncope. Past medical history is only significant for thyroid disease. He has been going to the gym last time was . He also shovels snow in the wintertime. - Allergies Allergies: Allergies No Known Allergies Allergy (Verified 12/28/19 17:57) - Current Medications Current Medications: Current Medications Enoxaparin Sodium (Lovenox) 40 mg SC DAILY [facility] Last Admin: 12/30/19 09:54 Dose: 40 mg Documented by: Glucagon () 1 mg IM .X1 PRN PRN Reason: Hypoglycemia Dextrose (Dextrose 10%-Water) 250 mls @ 999 mls/hr IV .Q16M PRN; Protocol PRN Reason: HYPOGLYCEMIA Sodium Chloride () 250 mls @ 15 mls/hr IV .[id number] PRN PRN Reason: Saline Flush Sodium Chloride () 1,000 mls @ 250 mls/hr IV .Q4H [facility] Last Admin: 12/30/19 14:05 Dose: 250 mls/hr Documented by: Levothyroxine Sodium (Synthroid) 50 mcg PO DAILY@0600 [facility] Last Admin: 12/30/19 04:48 Dose: 50 mcg Documented by: Melatonin (Melatonin) 3 mg PO QHS PRN PRN PRN Reason: INSOMNIA Ondansetron HCl (Zofran) 4 mg IV Q8H PRN PRN PRN Reason: NAUSEA/VOMITING Oseltamivir Phosphate (Tamiflu) 30 mg PO DAILY@2200 [facility] Stop: 01/02/20 22:01 Last Admin: 12/30/19 04:48 Dose: 30 mg Documented by: Sodium Chloride () 10 - 40 ml IV UD PRN PRN Reason: SALINE FLUSH - Past Medical History Past Medical History (Chronic Problems): Chronic Problems Hypothyroidism (Chronic) - Past Surgical History Surgical History: cholecystectomy, TURP - Social History Smoking Status: Former smoker Alcohol: None - Family History Maternal History Items: Heart Disease Paternal History Items: Cancer Review of Systems Constitutional: Reports: Weakness. Denies: Anorexia, Chills, Fever, Fatigue HEENT: Denies: Head Aches Cardiovascular: Denies: Chest Pain, Edema Respiratory: Denies: Cough, Shortness of Breath Gastrointestinal: Denies: Abdominal Pain, Constipation, Diarrhea, Nausea, Vomiting Genitourinary: Reports: Hematuria, - - Dark, black-colored urine, no change in urine volume.. Denies: Dysuria, Hesitancy, Retention, Urgency Musculoskeletal: Reports: Neck Pain, Shoulder Pain, - - Diffuse muscle aches. Denies: Joint swelling Skin: Denies: Rash Neurological: Denies: Tremor, Seizures Psychiatric: Denies: Anxiety, Depression Hematologic/ Lymphatic: Denies: Anemia Patient Problems: Active and Suspected Problems Acute renal failure (Acute) Rhabdomyolysis (Acute) Elevated liver enzymes (Acute) Myoglobinuria (Acute) - Physical Exam Vitals/I&O's: Vital Signs Temp Pulse Resp BP Pulse Ox 98.1 F 71 16 136/73 H 99 12/30/19 13:56 12/30/19 13:56 12/30/19 13:56 12/30/19 13:56 12/30/19 13:56 Oxygen Delivery Method Room Air Weight: 72.6 kg Body Mass Index (BMI) 25.0 Intake and Output for Last 24 Hours 12/28/19 12/29/19 12/30/19 23:59 23:59 23:59 Intake Total 1416.67 / 1616.67 5999.17 / 6349.17 4700 / 4700 Output Total 1350 / 2300 3825 / 3825 Balance 1416.67 / 1616.67 4649.17 / 4049.17 875 / 875 General: Alert, Oriented x3, Cooperative, No apparent distress HEENT: PERRLA, EOMI Oral: Dry Mucosa Neck: Supple, No JVD Lungs: Clear to auscultation Cardiovascular: Regular rate Abdomen: Bowel Sounds Present, Soft, Non Tender, Non-Distended Extremities: No edema Skin: No rashes Musculoskeletal: No Muscle Wasting Neurological: Cranial nerves II-XII grossly intact Psych/Mental Status: Normal Affect, Appropriate, Alert and oriented to time, place, person, mood and affect Microbiology Past 72 Hours 12/29/19 13:38 Mucosa - Nasopharyngeal Respiratory Panel (PCR) - Final Influenza A (Subtype H1) Laboratory Results 12/29/19 05:18: Hepatitis A IgM Ab Negative, Hep Bs Antigen Negative, Hep B Core IgM Ab Negative, Hepatitis C Ab (EIA) <0.1 12/29/19 05:18: ALYSSIA Screen Negative 12/29/19 20:05: Urine Opiates Screen NEGATIVE, Urine Methadone Screen NEGATIVE, Ur Barbiturates Screen NEGATIVE, Ur Phencyclidine Scrn NEGATIVE, Ur Amphetamines Screen NEGATIVE, U Methamphetamin-MDMA NEGATIVE, U Benzodiazepines Scrn NEGATIVE, Urine Cocaine Screen NEGATIVE, U Cannabinoids Screen NEGATIVE, Ur Drug Screen Comment 12/30/19 05:24: Sodium 142, Potassium 4.5, Chloride 117 H, Carbon Dioxide 21.0, BUN 34 H, Creatinine 2.13 H, Estim Creat Clear Calc 30.60, Est GFR (MDRD) Af Amer 40 L, Est GFR (MDRD) Non-Af 33 L, BUN/Creatinine Ratio 16.0, Glucose 81, Calcium 7.5 L, Phosphorus 3.4, Total Creatine Kinase 91603 H, Albumin 2.2 L 12/30/19 05:24: WBC 4.2 L, RBC 4.05 L, Hgb 12.2 L, Hct 38.0 L, MCV 93.8, MCH 30.1, MCHC 32.1, RDW Std Deviation 45.0 H, RDW Coeff of Yariel 13.0, Plt Count 166, MPV 10.4, Immature Gran % (Auto) 0.000, Neut % (Auto) 59.6, Lymph % (Auto) 25.5, [place] % (Auto) 13.0 H, Eos % (Auto) 1.7, Baso % (Auto) 0.2, Absolute Neuts (auto) 2.5, Absolute Lymphs (auto) 1.08, Nucleated RBC % 0 12/30/19 05:24: Anti-Mitochondrial Ab Pending 12/30/19 05:24: HIV 1&2 Antibody Non-Reactive 12/30/19 05:24: Hemoglobin A1c 5.6 12/30/19 08:10: Total Bilirubin 0.30, Direct Bilirubin 0.06, AST 2272 H, ALT 984 H, Alkaline Phosphatase 68, Total Protein 5.2 L, Albumin 2.5 L, Globulin 2.7 12/30/19 08:10: Total Creatine Kinase 80581 H Clinical Impression(s) from Imaging Studies Abdomen/Pelvis CT 12/28/19 18:35 IMPRESSION: Colonic diverticulosis. Electronically Signed: Alexander Espinoza MD at 20:16 EST , Service support , Current Medications Enoxaparin Sodium (Lovenox) 40 mg SC DAILY [facility] Last Admin: 12/30/19 09:54 Dose: 40 mg Documented by: Glucagon () 1 mg IM .X1 PRN PRN Reason: Hypoglycemia Dextrose (Dextrose 10%-Water) 250 mls @ 999 mls/hr IV .Q16M PRN; Protocol PRN Reason: HYPOGLYCEMIA Sodium Chloride () 250 mls @ 15 mls/hr IV .[id number] PRN PRN Reason: Saline Flush Sodium Chloride () 1,000 mls @ 250 mls/hr IV .Q4H [facility] Last Admin: 12/30/19 14:05 Dose: 250 mls/hr Documented by: Levothyroxine Sodium (Synthroid) 50 mcg PO DAILY@0600 [facility] Last Admin: 12/30/19 04:48 Dose: 50 mcg Documented by: Melatonin (Melatonin) 3 mg PO QHS PRN PRN PRN Reason: INSOMNIA Ondansetron HCl (Zofran) 4 mg IV Q8H PRN PRN PRN Reason: NAUSEA/VOMITING Oseltamivir Phosphate (Tamiflu) 30 mg PO DAILY@2200 [facility] Stop: 01/02/20 22:01 Last Admin: 12/30/19 04:48 Dose: 30 mg Documented by: Sodium Chloride () 10 - 40 ml IV UD PRN PRN Reason: SALINE FLUSH Assessment/Plan All Active Problems BPH (benign prostatic hyperplasia) (Resolved) Acute renal failure (Acute) Rhabdomyolysis (Acute) Elevated liver enzymes (Acute) Myoglobinuria (Acute) 1. Acute kidney injury due to ATN from rhabdo dialysis. Baseline creatinine 1.18 in June 2019, 1.1 in 2012. Creatinine 2.0-2.29 on admission improved to 2.13 today with aggressive IV hydration. Okay to reduce IV fluid rate. Urine output good. UA with blood without RBCs consistent with myoglobinuria from rhabdomyolysis. No illicit drug use. No NSAID use history. Patient has been on protein supplement long-term. ingredients unknown. 2. Acute rhabdomyolysis suspect due to recent influenza A. Await aldolase, antimitochondrial antibody, ALYSSIA negative. CPK 80,000 down to 53,670. Continue with IV fluids. 3. Acute hepatitis with elevated liver enzymes. negative viral hepatitis studies. 4. Influenza A on Tamiflu. 5. Hypothyroidism TSH normal. Continue replacement therapy.
--- NOTE | 2019-12-30 16:45 | PN_ITS ---
Patient Problems: Active and Suspected Problems Acute renal failure (Acute) Rhabdomyolysis (Acute) Elevated liver enzymes (Acute) Myoglobinuria (Acute) Reason for Visit: Follow-up on acute rhabdomyolysis Subjective: Patient was seen and examined. He feels improved. His urine is improved, almost donnie in color. Muscle aches have improved. Denies any chest pain or dizziness or palpitation. Patient gives a strong history of having had 6 rhabdomyolysis episodes in the past. There is no known diagnosis. No family history of rhabdomyolysis. He denies any trauma or exertional work lately. He denies working out in the cold. Urine tox have been negative. Acute influenza screen is positive. His was diagnosed with influenza on the same day he was admitted. Objective: Physical exam: General: Alert, Oriented x3, Cooperative, No apparent distress HEENT: Atraumatic, PERRLA, EOMI, Normocephalic Oral: Moist Mucosa Neck: Supple Lungs: Clear to auscultation, Normal air movement Cardiovascular: Regular rate, Regular Rhythm, Normal S1, Normal S2, No murmurs Abdomen: Bowel Sounds Present, Soft, Non Tender, Non-Distended, No Hepato- splenomegaly Extremities: No edema Skin: No rashes, No breakdown Musculoskeletal: No Tenderness to Palpation of Joints or Extremities Lymphatic: No Cervical, Supraclavicular, or Inguinal Adenopathy Neurological: Cranial nerves II-XII grossly intact, Neuro grossly intact Psych/Mental Status: Normal Affect, Appropriate Vitals/I&O's: Vital Signs Temp Pulse Resp BP Pulse Ox 98.1 F 71 16 136/73 H 99 12/30/19 13:56 12/30/19 13:56 12/30/19 13:56 12/30/19 13:56 12/30/19 13:56 Oxygen Delivery Method Room Air Weight: 72.6 kg Body Mass Index (BMI) 25.0 Intake and Output for Last 24 Hours 12/28/19 12/29/19 12/30/19 23:59 23:59 23:59 Intake Total 1416.67 / 1616.67 5999.17 / 6349.17 5295.83 / 5295.83 Output Total 1350 / 2300 3825 / 3825 Balance 1416.67 / 1616.67 4649.17 / 4049.17 1470.83 / 1470.83 Microbiology Past 72 Hours 02/19/20 13:38 Mucosa - Nasopharyngeal Respiratory Panel (PCR) - Final Influenza A (Subtype H1) Laboratory Results 12/29/19 05:18: Hepatitis A IgM Ab Negative, Hep Bs Antigen Negative, Hep B Core IgM Ab Negative, Hepatitis C Ab (EIA) <0.1 12/29/19 05:18: ALYSSIA Screen Negative 12/29/19 20:05: Urine Opiates Screen NEGATIVE, Urine Methadone Screen NEGATIVE, Ur Barbiturates Screen NEGATIVE, Ur Phencyclidine Scrn NEGATIVE, Ur Amphetamines Screen NEGATIVE, U Methamphetamin-MDMA NEGATIVE, U Benzodiazepines Scrn NEGATIVE, Urine Cocaine Screen NEGATIVE, U Cannabinoids Screen NEGATIVE, Ur Drug Screen Comment 12/30/19 05:24: Sodium 142, Potassium 4.5, Chloride 117 H, Carbon Dioxide 21.0, BUN 34 H, Creatinine 2.13 H, Estim Creat Clear Calc 30.60, Est GFR (MDRD) Af Amer 40 L, Est GFR (MDRD) Non-Af 33 L, BUN/Creatinine Ratio 16.0, Glucose 81, Calcium 7.5 L, Phosphorus 3.4, Total Creatine Kinase 74049 H, Albumin 2.2 L 12/30/19 05:24: WBC 4.2 L, RBC 4.05 L, Hgb 12.2 L, Hct 38.0 L, MCV 93.8, MCH 30.1, MCHC 32.1, RDW Std Deviation 45.0 H, RDW Coeff of Yariel 13.0, Plt Count 166, MPV 10.4, Immature Gran % (Auto) 0.000, Neut % (Auto) 59.6, Lymph % (Auto) 25.5, [place] % (Auto) 13.0 H, Eos % (Auto) 1.7, Baso % (Auto) 0.2, Absolute Neuts (auto) 2.5, Absolute Lymphs (auto) 1.08, Nucleated RBC % 0 12/30/19 05:24: Anti-Mitochondrial Ab Pending 12/30/19 05:24: HIV 1&2 Antibody Non-Reactive 12/30/19 05:24: Hemoglobin A1c 5.6 12/30/19 08:10: Total Bilirubin 0.30, Direct Bilirubin 0.06, AST 2272 H, ALT 984 H, Alkaline Phosphatase 68, Total Protein 5.2 L, Albumin 2.5 L, Globulin 2.7 12/30/19 08:10: Total Creatine Kinase 95712 H Current Medications Enoxaparin Sodium (Lovenox) 40 mg SC DAILY [facility] Last Admin: 12/30/19 09:54 Dose: 40 mg Documented by: Glucagon () 1 mg IM .X1 PRN PRN Reason: Hypoglycemia Dextrose (Dextrose 10%-Water) 250 mls @ 999 mls/hr IV .Q16M PRN; Protocol PRN Reason: HYPOGLYCEMIA Sodium Chloride () 250 mls @ 15 mls/hr IV .[id number] PRN PRN Reason: Saline Flush Sodium Chloride () 1,000 mls @ 150 mls/hr IV .Q6H40M [facility] Levothyroxine Sodium (Synthroid) 50 mcg PO DAILY@0600 [facility] Last Admin: 12/30/19 04:48 Dose: 50 mcg Documented by: Melatonin (Melatonin) 3 mg PO QHS PRN PRN PRN Reason: INSOMNIA Ondansetron HCl (Zofran) 4 mg IV Q8H PRN PRN PRN Reason: NAUSEA/VOMITING Oseltamivir Phosphate (Tamiflu) 30 mg PO DAILY@2200 [facility] Stop: 01/02/20 22:01 Last Admin: 12/30/19 04:48 Dose: 30 mg Documented by: Sodium Chloride () 10 - 40 ml IV UD PRN PRN Reason: SALINE FLUSH STROKE Vital Signs/Narrative: Vital Signs Temp Pulse Resp BP Pulse Ox 12/30/19 13:56 98.1 F 71 16 136/73 H 99 12/30/19 13:21 77 Medical Necessity - Tobacco Use Smoking Status: Former smoker Tobacco Use: Cigarettes Assessment/Plan All Active Problems BPH (benign prostatic hyperplasia) (Resolved) Acute renal failure (Acute) Rhabdomyolysis (Acute) Elevated liver enzymes (Acute) Myoglobinuria (Acute) 1. Acute rhabdomyolysis due to acute viral myositis secondary to acute influenza Admitting CK was more than 80,000, EKG improvement, current CK is 53,000, nontraumatic in etiology, not on statins, no use of illicit drugs, urine drug screen is negative. Influenza screen positive for influenza A, HIV as well as hepatitis panel is negative Work-up for inflammatory myositis pending Continue on aggressive IV fluids, 2. Acute kidney injury on CKD stage III, secondary to #1,baseline creatinine is 1.1, admitted with creatinine of 2.01 Cr is currently 2.13, urine output is improved Continue with aggressive IV fluids, repeat blood work in a.m., Nephrology following 3. Elevated troponin, indeterminate, in the absence of symptoms, related to #1 and 2 Will continue to monitor 4. Hypothyroidism, on Synthroid, TSH is 2.25 5. Elevated liver function tests, elevated AST/ALT, likely related to rhabdomyolysis, total bilirubin is normal, ALP is normal Hepatitis profile is negative, liver appeared normal on CT. No intrahepatic biliary duct dilatation or liver mass. 6. DVT PPx- Lovenox SC Code Visit Inpatient E&M: 78258 Subs Hosp L2
[2019-12-30] MEDS: oxyCODONE 5 MG Tablet PO (17:56)
[2019-12-30] MEDS: 0.45% Normal Saline 1,000 ML 150 ML IV (18:57)
[2019-12-31] VITALS (10 sets, daily range): BP systolic 133–161; BP diastolic 78–105; PULSE 65–86; RESP 16–18; TEMP 36.6–37.1; O2SAT 98–100
[2019-12-31] MEDS: 0.45% Normal Saline 1,000 ML 150 ML IV ×2 (01:40→07:58)
[2019-12-31] MEDS: Levothyroxine 50 MCG Tablet PO (06:48)
[2019-12-31 07:56] LABS: ALB/GLOB Ratio 0.9 RATIO (0.9-2.4); AST(SGOT) 1314 U/L (15-37); Alanine Aminotransfer ALT/SGPT 839 U/L (16-61); Albumin, Serum 2.3 g/dL (3.2-5.0); Alkaline Phosphatase 65 U/L (45-117); Anion Gap 4 (5-15); BUN 32 mg/dL (7-18); BUN/Creat Ratio 13.7 RATIO (10-20); Calcium,Total 7.8 mg/dL (8.5-10.1); Chloride 119 mmol/L (98-107); Creatinine, Serum 2.33 mg/dL (0.70-1.30); EST Glomerular Filtration Rate 30 mL/min (>60); Est Glom Filt Rate - Afr Amer 36 mL/min (>60); Estimated Creatinine Clearance 27.98 ml/min; Globulin 2.6 g/dL (2.2-4.2); Glucose 88 mg/dL (74-106); Protein, Total 4.9 g/dL (6.4-8.2); Sodium Level 146 mmol/L (136-145)
[2019-12-31] MEDS: Enoxaparin 40 MG/0.4 ML Syringe SC (07:58)
[2019-12-31 08:26] LABS: CPK Total, Creatine Kinase 26000 U/L (39-308)
--- NOTE | 2019-12-31 10:31 | CASEMGMT ---
Social Work Note SW reviewed chart, no copies of advanced directives were found. SW met pt and introduced self and role at [facility]. Pt is alert and orientated x3. SW updated pt that advanced directives are not on pt's chart and asked pt to bring in copies. Pt states understanding. Mira Campuzano REHAB TECHNICIAN, CLINICIAN ONCOLOGY
[2019-12-31 12:02] LABS: Aldolase < 1.2 U/L (3.3-10.3)
--- NOTE | 2019-12-31 14:01 | PCM.PN.HOSP ---
Patient Problems: Active and Suspected Problems Acute renal failure (Acute) Rhabdomyolysis (Acute) Elevated liver enzymes (Acute) Myoglobinuria (Acute) Reason for Visit: Follow-up on acute rhabdomyolysis Subjective: Patient was seen and examined. He feels improved. He has improvement in his myalgia. Urine output is good. Denies fever, chills, SOB. Objective: Physical exam: General: Alert, Oriented x3, Cooperative, No apparent distress HEENT: Atraumatic, PERRLA, EOMI, Normocephalic Oral: Moist Mucosa Neck: Supple Lungs: Clear to auscultation, Normal air movement Cardiovascular: Regular rate, Regular Rhythm, Normal S1, Normal S2, No murmurs Abdomen: Bowel Sounds Present, Soft, Non Tender, Non-Distended, No Hepato-splenomegaly Extremities: No edema Skin: No rashes, No breakdown Musculoskeletal: No Tenderness to Palpation of Joints or Extremities Lymphatic: No Cervical, Supraclavicular, or Inguinal Adenopathy Neurological: Cranial nerves II-XII grossly intact, Neuro grossly intact Psych/Mental Status: Normal Affect, Appropriate Vitals/I&O's: Vital Signs Temp Pulse Resp BP Pulse Ox 98.7 F 73 18 157/81 H 99 12/31/19 11:15 12/31/19 11:15 12/31/19 11:15 12/31/19 11:15 12/31/19 11:15 Oxygen Delivery Method Room Air Weight: 72.6 kg Body Mass Index (BMI) 25.0 Intake and Output for Last 24 Hours 12/29/19 12/30/19 12/31/19 23:59 23:59 23:59 Intake Total 5999.17 / 6349.17 6848.33 / 7468.33 4165 / 4165 Output Total 1350 / 2300 5825 / 6850 2950 / 2950 Balance 4649.17 / 4049.17 1023.33 / 618.33 1215 / 1215 Microbiology Past 72 Hours 12/29/19 13:38 Mucosa - Nasopharyngeal Respiratory Panel (PCR) - Final Influenza A (Subtype H1) Laboratory Results 12/29/19 05:18: Hepatitis A IgM Ab Negative, Hep Bs Antigen Negative, Hep B Core IgM Ab Negative, Hepatitis C Ab (EIA) <0.1 12/29/19 05:18: ALYSSIA Screen Negative 12/29/19 05:18: Aldolase < 1.2 L 12/31/19 05:50: Sodium 146 H, Potassium 5.0, Chloride 119 H, Carbon Dioxide 23.0, Anion Gap 4 L, BUN 32 H, Creatinine 2.33 H, Estim Creat Clear Calc 27.98, Est GFR (MDRD) Af Amer 36 L, Est GFR (MDRD) Non-Af 30 L, BUN/Creatinine Ratio 13.7, Glucose 88, Calcium 7.8 L, Total Bilirubin 0.20, AST 1314 H, ALT 839 H, Alkaline Phosphatase 65, Total Creatine Kinase 57963 H, Total Protein 4.9 L, Albumin 2.3 L, Globulin 2.6, Albumin/Globulin Ratio 0.9 Current Medications Enoxaparin Sodium (Lovenox) 40 mg SC DAILY ON [facility] OF [facility] Last Admin: 12/31/19 07:58 Dose: 40 mg Documented by: Glucagon () 1 mg IM .X1 PRN PRN Reason: Hypoglycemia Dextrose (Dextrose 10%-Water) 250 mls @ 999 mls/hr IV .Q16M PRN; Protocol PRN Reason: HYPOGLYCEMIA Sodium Chloride () 250 mls @ 15 mls/hr IV .[id number] PRN PRN Reason: Saline Flush Sodium Chloride () 1,000 mls @ 150 mls/hr IV .Q6H40M ON [facility] OF [facility] Last Admin: 12/31/19 07:58 Dose: 150 mls/hr Documented by: Levothyroxine Sodium (Synthroid) 50 mcg PO DAILY@0600 [facility] Last Admin: 12/31/19 06:48 Dose: 50 mcg Documented by: Melatonin (Melatonin) 3 mg PO QHS PRN PRN PRN Reason: INSOMNIA Ondansetron HCl (Zofran) 4 mg IV Q8H PRN PRN PRN Reason: NAUSEA/VOMITING Oseltamivir Phosphate (Tamiflu) 30 mg PO DAILY@2200 ON [facility] OF [facility] Stop: 01/02/20 22:01 Last Admin: 12/30/19 21:40 Dose: Not Given Documented by: Sodium Chloride () 10 - 40 ml IV UD PRN PRN Reason: SALINE FLUSH STROKE Vital Signs/Narrative: Vital Signs Temp Pulse Resp BP Pulse Ox 12/31/19 11:15 98.7 F 73 18 157/81 H 99 Medical Necessity - Tobacco Use Smoking Status: Former smoker Tobacco Use: Cigarettes Assessment/Plan All Active Problems BPH (benign prostatic hyperplasia) (Resolved) Acute renal failure (Acute) Rhabdomyolysis (Acute) Elevated liver enzymes (Acute) Myoglobinuria (Acute) 1. Acute rhabdomyolysis due to acute viral myositis secondary to acute influenza Admitting CK was more than 80,000, EKG improvement, current CK is 26,000, nontraumatic in etiology, not on statins, no use of illicit drugs, urine drug screen is negative. Influenza screen positive for influenza A, HIV as well as hepatitis panel is negative Work-up for inflammatory myositis pending Continue on aggressive IV fluids, 2. Acute kidney injury on CKD stage III, secondary to #1,baseline creatinine is 1.1, admitted with creatinine of 2.01 Cr is currently 2.13, urine output is improved Continue with aggressive IV fluids, repeat blood work in a.m., Nephrology following 3. Elevated troponin, indeterminate, in the absence of symptoms, related to #1 and 2 Will continue to monitor 4. Hypothyroidism, on Synthroid, TSH is 2.25 5. Elevated liver function tests, elevated AST/ALT, likely related to rhabdomyolysis, AST/ALT is improving. Total bilirubin is normal, ALP is normal Hepatitis profile is negative, liver appeared normal on CT. No intrahepatic biliary duct dilatation or liver mass. 6. DVT PPx- Lovenox SC Code Visit Inpatient E&M: 01502 Subs Hosp L2
[2019-12-31] MEDS: 0.45% Normal Saline 1,000 ML 200 ML IV ×3 (14:26→21:15)
[2019-12-31 15:21] LABS: Anti-Mitochondrial AB <20.0 Units (0.0-20.0)
[2019-12-31] MEDS: Oseltamivir Phosphate 30 MG Capsule PO (21:15)
[2019-12-31] MEDS: amLODIPine 5 MG Tablet PO (21:22)
[2020-01-01] VITALS (11 sets, daily range): BP systolic 140–156; BP diastolic 83–93; PULSE 62–79; RESP 18; TEMP 36.6–36.9; O2SAT 95–98
[2020-01-01] MEDS: 0.45% Normal Saline 1,000 ML 200 ML IV ×2 (01:44→06:49)
[2020-01-01] MEDS: Levothyroxine 50 MCG Tablet PO (05:05)
[2020-01-01 07:38] LABS: Albumin, Serum 2.2 g/dL (3.2-5.0); BUN 34 mg/dL (7-18); BUN/Creat Ratio 13.8 RATIO (10-20); CPK Total, Creatine Kinase 8623 U/L (39-308); Calcium,Total 8.1 mg/dL (8.5-10.1); Chloride 118 mmol/L (98-107); Creatinine, Serum 2.47 mg/dL (0.70-1.30); EST Glomerular Filtration Rate 28 mL/min (>60); Est Glom Filt Rate - Afr Amer 34 mL/min (>60); Estimated Creatinine Clearance 26.39 ml/min; Glucose 88 mg/dL (74-106); Phosphorus 3.3 mg/dL (2.5-4.9); Potassium 4.8 mmol/L (3.5-5.1); Sodium Level 146 mmol/L (136-145)
[2020-01-01 08:48] LABS: AST(SGOT) 676 U/L (15-37); Alanine Aminotransfer ALT/SGPT 743 U/L (16-61); Albumin, Serum 2.2 g/dL (3.2-5.0); Alkaline Phosphatase 69 U/L (45-117); Bilirubin, Direct 0.12 mg/dL (0.00-0.30); Protein, Total 5.2 g/dL (6.4-8.2)
[2020-01-01] MEDS: amLODIPine 5 MG Tablet PO (09:19)
[2020-01-01] MEDS: Enoxaparin 40 MG/0.4 ML Syringe SC (09:19)
[2020-01-01] MEDS: 0.45% Normal Saline 1,000 ML 150 ML IV ×3 (12:57→20:48)
--- NOTE | 2020-01-01 13:22 | PCM.PN.HOSP ---
Patient Problems: Active and Suspected Problems Acute renal failure (Acute) Rhabdomyolysis (Acute) Elevated liver enzymes (Acute) Myoglobinuria (Acute) Reason for Visit: Follow-up on acute rhabdomyolysis Subjective: Patient was seen and examined. He feels like his strength is coming back slowly. He feels less fatigue. Denied headache, dizziness or breathing problems. Objective: Physical exam: General: Alert, Oriented x3, Cooperative, No apparent distress HEENT: Atraumatic, PERRLA, EOMI, Normocephalic Oral: Moist Mucosa Neck: Supple Lungs: Clear to auscultation, Normal air movement Cardiovascular: Regular rate, Regular Rhythm, Normal S1, Normal S2, No murmurs Abdomen: Bowel Sounds Present, Soft, Non Tender, Non-Distended, No Hepato-splenomegaly Extremities: No edema Skin: No rashes, No breakdown Musculoskeletal: No Tenderness to Palpation of Joints or Extremities Lymphatic: No Cervical, Supraclavicular, or Inguinal Adenopathy Neurological: Cranial nerves II-XII grossly intact, Neuro grossly intact Psych/Mental Status: Normal Affect, Appropriate Vitals/I&O's: Vital Signs Temp Pulse Resp BP Pulse Ox 98 F 73 18 146/93 H 95 01/01/20 08:00 01/01/20 08:00 01/01/20 08:00 01/01/20 08:00 01/01/20 08:00 Oxygen Delivery Method Room Air Weight: 72.6 kg Body Mass Index (BMI) 25.0 Intake and Output for Last 24 Hours 12/30/19 12/31/19 01/01/20 23:59 23:59 23:59 Intake Total 6848.33 / 7468.33 6668.33 / 7168.33 4596.67 / 4596.67 Output Total 5825 / 6850 4800 / 6350 3400 / 3400 Balance 1023.33 / 618.33 1868.33 / 818.33 1196.67 / 1196.67 Microbiology Past 72 Hours 12/29/19 13:38 Mucosa - Nasopharyngeal Respiratory Panel (PCR) - Final Influenza A (Subtype H1) Laboratory Results 12/29/19 05:18: LISA-1 Antibody Not Reportable, SS-A/Ro IgG Antibody Not Reportable, SS-B/La IgG Antibody Not Reportable, Sm (Esteban) Antibody Not Reportable, HOUSETRAILER SERVICER Antibody Not Reportable, Scl-70 Scleroderma Ab Not Reportable, Double Strand DNA Ab Not Reportable, Centromere B Antibody Not Reportable 12/30/19 05:24: Anti-Mitochondrial Ab <20.0 01/01/20 06:11: Sodium 146 H, Potassium 4.8, Chloride 118 H, Carbon Dioxide 24.0, BUN 34 H, Creatinine 2.47 H, Estim Creat Clear Calc 26.39, Est GFR (MDRD) Af Amer 34 L, Est GFR (MDRD) Non-Af 28 L, BUN/Creatinine Ratio 13.8, Glucose 88, Calcium 8.1 L, Phosphorus 3.3, Total Creatine Kinase 8623 H, Albumin 2.2 L 01/01/20 06:11: Total Bilirubin 0.30, Direct Bilirubin 0.12, AST 676 H, ALT 743 H, Alkaline Phosphatase 69, Total Protein 5.2 L, Albumin 2.2 L, Globulin 3.0 Current Medications Amlodipine Besylate (Norvasc) 5 mg PO DAILY [facility] Last Admin: 01/01/20 09:19 Dose: 5 mg Documented by: Enoxaparin Sodium (Lovenox) 40 mg SC DAILY [facility] Last Admin: 01/01/20 09:19 Dose: 40 mg Documented by: Glucagon () 1 mg IM .X1 PRN PRN Reason: Hypoglycemia Dextrose (Dextrose 10%-Water) 250 mls @ 999 mls/hr IV .Q16M PRN; Protocol PRN Reason: HYPOGLYCEMIA Sodium Chloride () 250 mls @ 15 mls/hr IV .[id number] PRN PRN Reason: Saline Flush Sodium Chloride () 1,000 mls @ 150 mls/hr IV .Q6H40M [facility] Last Admin: 01/01/20 12:57 Dose: 150 mls/hr Documented by: Levothyroxine Sodium (Synthroid) 50 mcg PO DAILY@0600 [facility] Last Admin: 01/01/20 05:05 Dose: 50 mcg Documented by: Melatonin (Melatonin) 3 mg PO QHS PRN PRN PRN Reason: INSOMNIA Ondansetron HCl (Zofran) 4 mg IV Q8H PRN PRN PRN Reason: NAUSEA/VOMITING Oseltamivir Phosphate (Tamiflu) 30 mg PO DAILY@2200 [facility] Stop: 01/02/20 22:01 Last Admin: 12/31/19 21:15 Dose: 30 mg Documented by: Sodium Chloride () 10 - 40 ml IV UD PRN PRN Reason: SALINE FLUSH Medical Necessity - Tobacco Use Smoking Status: Former smoker Tobacco Use: Cigarettes Assessment/Plan All Active Problems BPH (benign prostatic hyperplasia) (Resolved) Acute renal failure (Acute) Rhabdomyolysis (Acute) Elevated liver enzymes (Acute) Myoglobinuria (Acute) 1. Acute rhabdomyolysis due to acute viral myositis secondary to acute influenza Admitting CK was more than 80,000, EKG improvement, current CK is 8623, nontraumatic in etiology, not on statins, no use of illicit drugs, urine drug screen is negative. Influenza screen positive for influenza A, HIV as well as hepatitis panel is negative Work-up for inflammatory myositis pending Continue on aggressive IV fluids at 150mls/hr 2. Acute kidney injury on CKD stage III, secondary to #1,baseline creatinine is 1.1, admitted with creatinine of 2.01 Cr is currently 2.47, polyuria present >8L urine in the last 24 hours Continue with decreased IVF 150mls/hr, repeat blood work in a.m., Nephrology following 3. Elevated blood pressure without diagnosis of hypertension, blood pressure better controlled with start of amlodipine Will continue amlodipine 5 mg daily 4. Elevated troponin, indeterminate, in the absence of symptoms, related to #1 and 2 Will continue to monitor 5. Hypothyroidism, on Synthroid, TSH is 2.25 6. Elevated liver function tests, elevated AST/ALT, likely related to rhabdomyolysis, AST/ALT is improving. Total bilirubin is normal, ALP is normal Hepatitis profile is negative, liver appeared normal on CT. No intrahepatic biliary duct dilatation or liver mass. 7. DVT PPx- Lovenox SC Code Visit Inpatient E&M: 50163 Subs Hosp L2
--- NOTE | 2020-01-01 14:21 | PCM.PN.REN ---
Patient Problems: Active and Suspected Problems Acute renal failure (Acute) Rhabdomyolysis (Acute) Elevated liver enzymes (Acute) Myoglobinuria (Acute) Subjective: denies nausea, vomiting, shortness of breath. Urine output good. Creatinine rising despite iv fluids. - Physical Exam Vitals/I&O's: Vital Signs Temp Pulse Resp BP Pulse Ox 98 F 73 18 146/93 H 96 01/01/20 08:00 01/01/20 08:00 01/01/20 08:00 01/01/20 08:00 01/01/20 13:54 Oxygen Delivery Method Room Air Weight: 72.6 kg Body Mass Index (BMI) 25.0 Intake and Output for Last 24 Hours 12/30/19 12/31/19 01/01/20 23:59 23:59 23:59 Intake Total 6848.33 / 7468.33 6668.33 / 7168.33 4596.67 / 4596.67 Output Total 5825 / 6850 4800 / 6350 3400 / 3400 Balance 1023.33 / 618.33 1868.33 / 818.33 1196.67 / 1196.67 General: Alert, Oriented x3, Cooperative, No apparent distress Lungs: Clear to auscultation Cardiovascular: Regular rate Extremities: No edema Microbiology Past 72 Hours 12/29/19 13:38 Mucosa - Nasopharyngeal Respiratory Panel (PCR) - Final Influenza A (Subtype H1) Laboratory Results 12/29/19 05:18: LISA-1 Antibody Not Reportable, SS-A/Ro IgG Antibody Not Reportable, SS-B/La IgG Antibody Not Reportable, Sm (Esteban) Antibody Not Reportable, CHAIRMAN & CHIEF EXECUTIVE OFFICER Antibody Not Reportable, Scl-70 Scleroderma Ab Not Reportable, Double Strand DNA Ab Not Reportable, Centromere B Antibody Not Reportable 12/30/19 05:24: Anti-Mitochondrial Ab <20.0 01/01/20 06:11: Sodium 146 H, Potassium 4.8, Chloride 118 H, Carbon Dioxide 24.0, BUN 34 H, Creatinine 2.47 H, Estim Creat Clear Calc 26.39, Est GFR (MDRD) Af Amer 34 L, Est GFR (MDRD) Non-Af 28 L, BUN/Creatinine Ratio 13.8, Glucose 88, Calcium 8.1 L, Phosphorus 3.3, Total Creatine Kinase 8623 H, Albumin 2.2 L 02/22/20 06:11: Total Bilirubin 0.30, Direct Bilirubin 0.12, AST 676 H, ALT 743 H, Alkaline Phosphatase 69, Total Protein 5.2 L, Albumin 2.2 L, Globulin 3.0 Current Medications Amlodipine Besylate (Norvasc) 5 mg PO DAILY [facility] Last Admin: 01/01/20 09:19 Dose: 5 mg Documented by: Enoxaparin Sodium (Lovenox) 40 mg SC DAILY [facility] Last Admin: 01/01/20 09:19 Dose: 40 mg Documented by: Glucagon () 1 mg IM .X1 PRN PRN Reason: Hypoglycemia Dextrose (Dextrose 10%-Water) 250 mls @ 999 mls/hr IV .Q16M PRN; Protocol PRN Reason: HYPOGLYCEMIA Sodium Chloride () 250 mls @ 15 mls/hr IV .[id number] PRN PRN Reason: Saline Flush Sodium Chloride () 1,000 mls @ 150 mls/hr IV .Q6H40M [facility] Last Admin: 01/01/20 12:57 Dose: 150 mls/hr Documented by: Levothyroxine Sodium (Synthroid) 50 mcg PO DAILY@0600 [facility] Last Admin: 01/01/20 05:05 Dose: 50 mcg Documented by: Melatonin (Melatonin) 3 mg PO QHS PRN PRN PRN Reason: INSOMNIA Ondansetron HCl (Zofran) 4 mg IV Q8H PRN PRN PRN Reason: NAUSEA/VOMITING Oseltamivir Phosphate (Tamiflu) 30 mg PO DAILY@2200 [facility] Stop: 01/02/20 22:01 Last Admin: 12/31/19 21:15 Dose: 30 mg Documented by: Sodium Chloride () 10 - 40 ml IV UD PRN PRN Reason: SALINE FLUSH Medical Necessity - Tobacco Use Smoking Status: Former smoker Tobacco Use: Cigarettes Assessment/Plan All Active Problems BPH (benign prostatic hyperplasia) (Resolved) Acute renal failure (Acute) Rhabdomyolysis (Acute) Elevated liver enzymes (Acute) Myoglobinuria (Acute) 1. Acute kidney injury due to ATN from rhabdomyolysis. Baseline creatinine 1.18 in June 2019, 1.1 in 2012. Creatinine continues to rise at 2.47 due to ATN. Currently nonoliguric. No uremic symptoms. Continue with 1/2NSS at 150cc/hr 2. Acute rhabdomyolysis suspect due to recent influenza A. Continue with iv fluids. 3. Acute hepatitis with elevated liver enzymes. negative viral hepatitis studies. 4. Influenza A on Tamiflu.
[2020-01-01 18:39] LABS: Albumin, Serum 2.4 g/dL (3.2-5.0); BUN 38 mg/dL (7-18); Calcium,Total 8.4 mg/dL (8.5-10.1); Chloride 115 mmol/L (98-107); Creatinine, Serum 2.53 mg/dL (0.70-1.30); EST Glomerular Filtration Rate 27 mL/min (>60); Est Glom Filt Rate - Afr Amer 33 mL/min (>60); Estimated Creatinine Clearance 25.76 ml/min; Glucose 155 mg/dL (74-106); Phosphorus 2.8 mg/dL (2.5-4.9); Potassium 4.3 mmol/L (3.5-5.1); Sodium Level 144 mmol/L (136-145)
[2020-01-01] MEDS: Oseltamivir Phosphate 30 MG Capsule PO (21:32)
[2020-01-02] VITALS (12 sets, daily range): BP systolic 136–150; BP diastolic 80–92; PULSE 58–86; RESP 16–18; TEMP 36.6–37.3; O2SAT 95–99
[2020-01-02] MEDS: 0.45% Normal Saline 1,000 ML 150 ML IV ×2 (03:31→10:08)
[2020-01-02] MEDS: Levothyroxine 50 MCG Tablet PO (05:55)
[2020-01-02 06:44] LABS: ALB/GLOB Ratio 0.7 RATIO (0.9-2.4); AST(SGOT) 283 U/L (15-37); Alanine Aminotransfer ALT/SGPT 614 U/L (16-61); Albumin, Serum 2.2 g/dL (3.2-5.0); Alkaline Phosphatase 72 U/L (45-117); Anion Gap 5 (5-15); BUN 36 mg/dL (7-18); BUN/Creat Ratio 14.9 RATIO (10-20); Chloride 115 mmol/L (98-107); Creatinine, Serum 2.42 mg/dL (0.70-1.30); EST Glomerular Filtration Rate 28 mL/min (>60); Est Glom Filt Rate - Afr Amer 34 mL/min (>60); Estimated Creatinine Clearance 26.93 ml/min; Globulin 3.2 g/dL (2.2-4.2); Glucose 101 mg/dL (74-106); Potassium 4.5 mmol/L (3.5-5.1); Protein, Total 5.4 g/dL (6.4-8.2); Sodium Level 143 mmol/L (136-145)
--- NOTE | 2020-01-02 07:39 | PN_ITS ---
Patient Problems: Active and Suspected Problems Acute renal failure (Acute) Rhabdomyolysis (Acute) Elevated liver enzymes (Acute) Myoglobinuria (Acute) Reason for Visit: Follow-up on acute rhabdomyolysis Subjective: Patient was seen and examined. He denies any progressive SOB, chest pain. He has good urine output and has been drinking a lot too. Vitals/I&O's: Vital Signs Temp Pulse Resp BP Pulse Ox 99.1 F 58 L 16 143/92 H 99 01/02/20 02:14 01/02/20 04:00 01/02/20 02:14 01/02/20 02:14 01/02/20 02:14 Oxygen Delivery Method Room Air Weight: 72.6 kg Body Mass Index (BMI) 25.0 Intake and Output for Last 24 Hours 12/31/19 01/01/20 01/02/20 23:59 23:59 23:59 Intake Total 6668.33 / 7168.33 6659.17 / 6659.17 1600 / 1600 Output Total 4800 / 6350 4950 / 4950 3200 / 3200 Balance 1868.33 / 818.33 1709.17 / 1709.17 -1600 / -1600 Microbiology Past 72 Hours 12/29/19 13:38 Mucosa - Nasopharyngeal Respiratory Panel (PCR) - Final Influenza A (Subtype H1) Laboratory Results 01/01/20 06:11: Total Bilirubin 0.30, Direct Bilirubin 0.12, AST 676 H, ALT 743 H, Alkaline Phosphatase 69, Total Protein 5.2 L, Albumin 2.2 L, Globulin 3.0 01/01/20 18:09: Sodium 144, Potassium 4.3, Chloride 115 H, Carbon Dioxide 24.0, BUN 38 H, Creatinine 2.53 H, Estim Creat Clear Calc 25.76, Est GFR (MDRD) Af Amer 33 L, Est GFR (MDRD) Non-Af 27 L, BUN/Creatinine Ratio 15.0, Glucose 155 H, Calcium 8.4 L, Phosphorus 2.8, Albumin 2.4 L 01/02/20 05:54: Sodium 143, Potassium 4.5, Chloride 115 H, Carbon Dioxide 23.0, Anion Gap 5, BUN 36 H, Creatinine 2.42 H, Estim Creat Clear Calc 26.93, Est GFR (MDRD) Af Amer 34 L, Est GFR (MDRD) Non-Af 28 L, BUN/Creatinine Ratio 14.9, Glucose 101, Calcium 8.0 L, Total Bilirubin 0.30, AST 283 H, ALT 614 H, Alkaline Phosphatase 72, Total Protein 5.4 L, Albumin 2.2 L, Globulin 3.2, Albumin/Globulin Ratio 0.7 L Current Medications Amlodipine Besylate (Norvasc) 5 mg PO DAILY [facility] Last Admin: 01/01/20 09:19 Dose: 5 mg Documented by: Enoxaparin Sodium (Lovenox) 40 mg SC DAILY [facility] Last Admin: 01/01/20 09:19 Dose: 40 mg Documented by: Glucagon () 1 mg IM .X1 PRN PRN Reason: Hypoglycemia Dextrose (Dextrose 10%-Water) 250 mls @ 999 mls/hr IV .Q16M PRN; Protocol PRN Reason: HYPOGLYCEMIA Sodium Chloride () 250 mls @ 15 mls/hr IV .[id number] PRN PRN Reason: Saline Flush Sodium Chloride () 1,000 mls @ 150 mls/hr IV .Q6H40M [facility] Last Admin: 01/02/20 03:31 Dose: 150 mls/hr Documented by: Dextrose () 1,000 mls @ 50 mls/hr IV .Q20H [facility] Last Admin: 01/01/20 15:30 Dose: 50 mls/hr Documented by: Levothyroxine Sodium (Synthroid) 50 mcg PO DAILY@0600 [facility] Last Admin: 01/02/20 05:55 Dose: 50 mcg Documented by: Melatonin (Melatonin) 3 mg PO QHS PRN PRN PRN Reason: INSOMNIA Ondansetron HCl (Zofran) 4 mg IV Q8H PRN PRN PRN Reason: NAUSEA/VOMITING Oseltamivir Phosphate (Tamiflu) 30 mg PO DAILY@2200 [facility] Stop: 01/02/20 22:01 Last Admin: 01/01/20 21:32 Dose: 30 mg Documented by: Sodium Chloride () 10 - 40 ml IV UD PRN PRN Reason: SALINE FLUSH STROKE Vital Signs/Narrative: Vital Signs Pulse 01/02/20 04:00 58 L Medical Necessity - Tobacco Use Smoking Status: Former smoker Tobacco Use: Cigarettes Assessment/Plan All Active Problems BPH (benign prostatic hyperplasia) (Resolved) Acute renal failure (Acute) Rhabdomyolysis (Acute) Elevated liver enzymes (Acute) Myoglobinuria (Acute) 1. Acute rhabdomyolysis due to acute viral myositis secondary to acute influenza Admitting CK was more than 80,000, much improved, current CK is 3403 No associated trauma, no use of illicit drugs, urine drug screen is negative. Influenza screen positive for influenza A and HIV as well as hepatitis panel is negative Work-up for inflammatory myositis is negative Continue on aggressive IV fluids at 150mls/hr 2. Acute kidney injury on CKD stage III, secondary to #1,baseline creatinine is 1.1, admitted with creatinine of 2.01 Cr is currently 2.42, polyuria present >8L urine in the last 24 hours Continue with IVF at 150mls/hr, repeat blood work in a.m., Nephrology following 3. Hypertension, newly diagnosed, no h/o hypertension, BP elevated here Started on amlodipine, BP remains uncontrolled We will increase amlodipine to 10 mg p.o. daily 5. Hypothyroidism, on Synthroid, TSH is 2.25 6. Elevated liver function tests, elevated AST/ALT, likely related to rhabdomyolysis, less likely acute hepatitis AST/ALT is improving.Hepatitis profile is negative, liver appeared normal on CT. No intrahepatic biliary duct dilatation or liver mass. 7. DVT PPx- Lovenox SC 8. Disposition: Possible DC in am Code Visit Inpatient E&M: 54022 Subs Hosp L2
[2020-01-02 08:14] LABS: CPK Total, Creatine Kinase 3403 U/L (39-308)
[2020-01-02] MEDS: Enoxaparin 40 MG/0.4 ML Syringe SC (09:21)
[2020-01-02] MEDS: amLODIPine 5 MG Tablet PO (09:21)
[2020-01-02] MEDS: 0.45% Normal Saline 1,000 ML 75 ML IV (19:11)
[2020-01-02] MEDS: Oseltamivir Phosphate 30 MG Capsule PO (20:58)
[2020-01-03] VITALS (12 sets, daily range): BP systolic 137–148; BP diastolic 82–89; PULSE 65–82; RESP 16–18; TEMP 36.4–36.9; O2SAT 96–98
[2020-01-03] MEDS: Levothyroxine 50 MCG Tablet PO (06:30)
[2020-01-03 06:47] LABS: Anion Gap 7 (5-15); BUN 39 mg/dL (7-18); BUN/Creat Ratio 14.8 RATIO (10-20); Calcium,Total 8.3 mg/dL (8.5-10.1); Chloride 114 mmol/L (98-107); Creatinine, Serum 2.64 mg/dL (0.70-1.30); EST Glomerular Filtration Rate 26 mL/min (>60); Est Glom Filt Rate - Afr Amer 31 mL/min (>60); Estimated Creatinine Clearance 24.69 ml/min; Glucose 101 mg/dL (74-106); Potassium 4.3 mmol/L (3.5-5.1); Sodium Level 144 mmol/L (136-145)
[2020-01-03] MEDS: 0.45% Normal Saline 1,000 ML 75 ML IV ×2 (07:47→22:11)
[2020-01-03] MEDS: amLODIPine 10 MG Tablet PO (08:18)
[2020-01-03] MEDS: Enoxaparin 40 MG/0.4 ML Syringe SC (08:18)
--- NOTE | 2020-01-03 09:34 | PCM.PN.HOSP ---
Patient Problems: Active and Suspected Problems Acute renal failure (Acute) Rhabdomyolysis (Acute) Elevated liver enzymes (Acute) Myoglobinuria (Acute) Reason for Visit: Acute rhabdomyolysis Subjective: Patient is a 69-year-old gentleman admitted with back colored urine patient was found to have acute kidney injury in addition to acute rhabdomyolysis admitted to regular nursing floor for further management Patient CPK levels have improved kidney function however still remains elevated Objective: GENERAL: cooperative HEENT: Atraumatic; EYES; Anicteric, Normal Conjunctiva NECK; supple, normal thyroid, RESPIRATORY: Diminished to auscultation CARDIOVASCULAR: Regular S1 S2, GI: soft, normoactive bowel sounds, : No Renal angle tenderness; EXTREMITIES: No edema, no clubbing, MUSCULOSKELETAL: no muscle waisting NEURO: Awake; no lateralizing signs. SKIN: No Rash PSYCH; Flat affect Vitals/I&O's: Vital Signs Temp Pulse Resp BP Pulse Ox 97.6 F L 69 18 148/89 H 98 01/03/20 08:05 01/03/20 08:05 01/03/20 08:05 01/03/20 08:05 01/03/20 08:05 Oxygen Delivery Method Room Air Weight: 72.6 kg Body Mass Index (BMI) 25.0 Intake and Output for Last 24 Hours 01/01/20 01/02/20 01/03/20 23:59 23:59 23:59 Intake Total 6659.17 / 6659.17 6431.67 / 6431.67 3065 / 3065 Output Total 4950 / 4950 7300 / 7300 750 / 750 Balance 1709.17 / 1709.17 -868.33 / -868.33 2315 / 2315 Laboratory Results 01/03/20 05:45: Sodium 144, Potassium 4.3, Chloride 114 H, Carbon Dioxide 23.0, Anion Gap 7, BUN 39 H, Creatinine 2.64 H, Estim Creat Clear Calc 24.69, Est GFR (MDRD) Af Amer 31 L, Est GFR (MDRD) Non-Af 26 L, BUN/Creatinine Ratio 14.8, Glucose 101, Calcium 8.3 L Current Medications Amlodipine Besylate (Norvasc) 10 mg PO DAILY [facility] Last Admin: 01/03/20 08:18 Dose: 10 mg Documented by: Enoxaparin Sodium (Lovenox) 40 mg SC DAILY [facility] Last Admin: 01/03/20 08:18 Dose: 40 mg Documented by: Glucagon () 1 mg IM .X1 PRN PRN Reason: Hypoglycemia Dextrose (Dextrose 10%-Water) 250 mls @ 999 mls/hr IV .Q16M PRN; Protocol PRN Reason: HYPOGLYCEMIA Sodium Chloride () 250 mls @ 15 mls/hr IV .[id number] PRN PRN Reason: Saline Flush Dextrose () 1,000 mls @ 50 mls/hr IV .Q20H [facility] Last Admin: 01/03/20 06:30 Dose: 50 mls/hr Documented by: Sodium Chloride () 1,000 mls @ 75 mls/hr IV .[id number] [facility] Last Admin: 01/03/20 07:47 Dose: 75 mls/hr Documented by: Levothyroxine Sodium (Synthroid) 50 mcg PO DAILY@0600 [facility] Last Admin: 01/03/20 06:30 Dose: 50 mcg Documented by: Melatonin (Melatonin) 3 mg PO QHS PRN PRN PRN Reason: INSOMNIA Ondansetron HCl (Zofran) 4 mg IV Q8H PRN PRN PRN Reason: NAUSEA/VOMITING Sodium Chloride () 10 - 40 ml IV UD PRN PRN Reason: SALINE FLUSH STROKE Vital Signs/Narrative: Vital Signs Temp Pulse Resp BP Pulse Ox 01/03/20 08:05 97.6 F L 69 18 148/89 H 98 01/03/20 07:20 96 Medical Necessity - Tobacco Use Smoking Status: Former smoker Tobacco Use: Cigarettes Assessment/Plan All Active Problems BPH (benign prostatic hyperplasia) (Resolved) Acute renal failure (Acute) Rhabdomyolysis (Acute) Elevated liver enzymes (Acute) Myoglobinuria (Acute) Patient is a 69-year-old gentleman admitted with back colored urine patient was found to have acute kidney injury in addition to acute rhabdomyolysis admitted to regular nursing floor for further management 1. Acute rhabdomyolysis ?Attributed to recent viral infection influenza. Managed with IV fluids 2. Acute kidney injury ?Secondary to ATN from above patient is on IV fluids. Consult placed to nephrology patient has been seen by Dr. Sharma her notes and recommendations reviewed 3. Essential hypertension ?New diagnosis patient started on amlodipine 4. Hypothyroidism ~patient is on levothyroxine home dose continued 5. Transaminitis ?Attributed to patient rhabdo monitoring 6. DVT prophylaxis ?Lovenox Code Visit Inpatient E&M: 42214 Subs Hosp L2
--- NOTE | 2020-01-03 12:24 | PN.RENAL_ITS ---
Patient Problems: Active and Suspected Problems Acute renal failure (Acute) Rhabdomyolysis (Acute) Elevated liver enzymes (Acute) Myoglobinuria (Acute) Subjective: denies nausea, vomiting. Denies muscle aches, weakness. Appetite good. Creatinine increased to 2.6 today. Post ATN diuresis. Continue with iv fluids. - Physical Exam Vitals/I&O's: Vital Signs Temp Pulse Resp BP Pulse Ox 97.6 F L 76 18 148/89 H 98 01/03/20 08:05 01/03/20 11:15 01/03/20 08:05 01/03/20 08:05 01/03/20 08:05 Oxygen Delivery Method Room Air Weight: 72.6 kg Body Mass Index (BMI) 25.0 Intake and Output for Last 24 Hours 01/01/20 01/02/20 01/03/20 23:59 23:59 23:59 Intake Total 6659.17 / 6659.17 6431.67 / 6431.67 3065 / 3065 Output Total 4950 / 4950 7300 / 7300 750 / 750 Balance 1709.17 / 1709.17 -868.33 / -868.33 2315 / 2315 General: Alert, Oriented x3, Cooperative Lungs: Clear to auscultation Cardiovascular: Regular rate Extremities: No edema Psych/Mental Status: Alert and oriented to time, place, person, mood and affect Laboratory Results 01/03/20 05:45: Sodium 144, Potassium 4.3, Chloride 114 H, Carbon Dioxide 23.0, Anion Gap 7, BUN 39 H, Creatinine 2.64 H, Estim Creat Clear Calc 24.69, Est GFR (MDRD) Af Amer 31 L, Est GFR (MDRD) Non-Af 26 L, BUN/Creatinine Ratio 14.8, Glucose 101, Calcium 8.3 L Current Medications Amlodipine Besylate (Norvasc) 10 mg PO DAILY [facility] Last Admin: 01/03/20 08:18 Dose: 10 mg Documented by: Enoxaparin Sodium (Lovenox) 40 mg SC DAILY [facility] Last Admin: 01/03/20 08:18 Dose: 40 mg Documented by: Glucagon () 1 mg IM .X1 PRN PRN Reason: Hypoglycemia Dextrose (Dextrose 10%-Water) 250 mls @ 999 mls/hr IV .Q16M PRN; Protocol PRN Reason: HYPOGLYCEMIA Sodium Chloride () 250 mls @ 15 mls/hr IV .[id number] PRN PRN Reason: Saline Flush Dextrose () 1,000 mls @ 50 mls/hr IV .Q20H [facility] Last Admin: 01/03/20 06:30 Dose: 50 mls/hr Documented by: Sodium Chloride () 1,000 mls @ 75 mls/hr IV .[id number] [facility] Last Admin: 01/03/20 07:47 Dose: 75 mls/hr Documented by: Levothyroxine Sodium (Synthroid) 50 mcg PO DAILY@0600 [facility] Last Admin: 01/03/20 06:30 Dose: 50 mcg Documented by: Melatonin (Melatonin) 3 mg PO QHS PRN PRN PRN Reason: INSOMNIA Ondansetron HCl (Zofran) 4 mg IV Q8H PRN PRN PRN Reason: NAUSEA/VOMITING Sodium Chloride () 10 - 40 ml IV UD PRN PRN Reason: SALINE FLUSH Medical Necessity - Tobacco Use Smoking Status: Former smoker Tobacco Use: Cigarettes Assessment/Plan All Active Problems BPH (benign prostatic hyperplasia) (Resolved) Acute renal failure (Acute) Rhabdomyolysis (Acute) Elevated liver enzymes (Acute) Myoglobinuria (Acute) 1. Acute kidney injury due to ATN from rhabdomyolysis. Baseline creatinine 1.18 in June 2019 Creatinine continues to rise at 2.6 today due to ATN. Currently nonoliguric. No uremic symptoms. Continue with 1/2NSS at 150cc/hr 2. Acute rhabdomyolysis suspect due to recent influenza A. Continue with iv fluids. 3. Acute hepatitis with elevated liver enzymes. negative viral hepatitis studies. 4. Influenza A on Tamiflu. M[facility] hospitalist
[2020-01-04 01:59] VITALS: PULSE 67
[2020-01-04 02:14] VITALS: BP 132/78; PULSE 64; RESP 16; TEMP 36.6; O2SAT 95
[2020-01-04] MEDS: Levothyroxine 50 MCG Tablet PO (05:44)
[2020-01-04 07:13] LABS: ALB/GLOB Ratio 0.7 RATIO (0.9-2.4); AST(SGOT) 141 U/L (15-37); Alanine Aminotransfer ALT/SGPT 474 U/L (16-61); Albumin, Serum 2.6 g/dL (3.2-5.0); Alkaline Phosphatase 85 U/L (45-117); Anion Gap 5 (5-15); BUN 39 mg/dL (7-18); BUN/Creat Ratio 14.6 RATIO (10-20); CPK Total, Creatine Kinase 796 U/L (39-308); Calcium,Total 8.4 mg/dL (8.5-10.1); Chloride 113 mmol/L (98-107); Creatinine, Serum 2.68 mg/dL (0.70-1.30); EST Glomerular Filtration Rate 25 mL/min (>60); Est Glom Filt Rate - Afr Amer 31 mL/min (>60); Estimated Creatinine Clearance 24.32 ml/min; Globulin 3.7 g/dL (2.2-4.2); Glucose 99 mg/dL (74-106); Potassium 4.2 mmol/L (3.5-5.1); Protein, Total 6.3 g/dL (6.4-8.2); Sodium Level 143 mmol/L (136-145)
[2020-01-04 07:46] VITALS: BP 134/82; PULSE 64; RESP 16; TEMP 36.5; O2SAT 98
[2020-01-04] MEDS: amLODIPine 10 MG Tablet PO (07:51)
[2020-01-04 08:20] VITALS: PULSE 57
--- NOTE | 2020-01-04 08:35 | PCM.DC ---
- Discharge Diagnoses Current Active Problems: Current Active and Chronic Problems Acute renal failure (Acute) Rhabdomyolysis (Acute) Elevated liver enzymes (Acute) Myoglobinuria (Acute) You will use the following diet at home:: No restrictions Discharge Activity: Return to Normal Activity Allergies/Adverse Reactions: Allergies No Known Allergies Allergy (Verified 12/28/19 17:57) Medications to take at Discharge Levothyroxine [Synthroid] 50 mcg PO DAILY 06/18/19 Amlodipine [Norvasc] 10 mg PO DAILY #90 tab 01/04/20 The following prescriptions were given: Amlodipine [Norvasc] 10 mg PO DAILY #90 tab Transmission Status: Received by CARLA BRADY[address] Orders to be completed after discharge: CPK Total, Creatine Kinase Facility: [facility], Location: Laboratory Liver Profile Time Frame: 01/06/20, Facility: [facility], Location: Laboratory Renal Profile Time Frame: 01/06/20, Facility: [facility], Location: Laboratory Primary Care Physician: Aury Owens MD [Primary Care Provider] - Please follow up with your Primary Care Physician in: 1 week Test Results: Test results from this visit will be discussed in further detail at your follow-up appointment, if applicable. Please Follow Up With: Sandy Sharma When: In 5 to 7 days Proposed Discharge Date: 01/04/20
--- NOTE | 2020-01-04 08:36 | PCM.DC.SUM ---
Discharge Date and Diagnosis - Problem List Patient Problems: Active and Suspected Problems Acute renal failure (Acute) Rhabdomyolysis (Acute) Elevated liver enzymes (Acute) Myoglobinuria (Acute) Date of Admission: 12/28/19 Date of Discharge: 01/04/20 - Primary Discharge Diagnosis Active and Suspected Problems Acute renal failure (Acute) Rhabdomyolysis (Acute) Elevated liver enzymes (Acute) Myoglobinuria (Acute) - Secondary Discharge Diagnosis Chronic Problems Hypothyroidism (Chronic) Hospital Course and Treatment Summary of Care Provided: Patient is a 69-year-old gentleman admitted with back colored urine patient was found to have acute kidney injury in addition to acute rhabdomyolysis admitted to regular nursing floor for further management 1. Acute rhabdomyolysis ?Attributed to recent viral infection influenza. Managed with IV fluids ?Patient CPK levels were trending down at the time of discharge plan is to have a repeat lab work on 01/06/2020 patient was advised to avoid vigorous exercises. 2. Acute kidney injury ?Secondary to ATN from above patient is on IV fluids. Consult placed to nephrology patient has been seen by Dr. Sharma her notes and recommendations reviewed ?Creatinine at the time of discharge was 2.68. Plan is for patient to have repeat labs as outpatient and to follow-up with nephrology. Patient was advised to keep hydrated. 3. Essential hypertension ?New diagnosis patient started on amlodipine 4. Hypothyroidism ~patient is on levothyroxine home dose continued 5. Transaminitis ?Attributed to patient rhabdo monitoring 6. DVT prophylaxis ?Lovenox Patient Problems: Active and Suspected Problems Acute renal failure (Acute) Rhabdomyolysis (Acute) Elevated liver enzymes (Acute) Myoglobinuria (Acute) Objective: GENERAL: cooperative HEENT: Atraumatic; EYES; Anicteric, Normal Conjunctiva NECK; supple, normal thyroid, RESPIRATORY: Diminished to auscultation CARDIOVASCULAR: Regular S1 S2, GI: soft, normoactive bowel sounds, : No Renal angle tenderness; EXTREMITIES: No edema, no clubbing, MUSCULOSKELETAL: no muscle waisting NEURO: Awake; no lateralizing signs. SKIN: No Rash PSYCH; Flat affect - Physical Exam Vitals/I&O's: Vital Signs Temp Pulse Resp BP Pulse Ox 97.7 F L 64 16 134/82 H 98 01/04/20 07:46 01/04/20 07:46 01/04/20 07:46 01/04/20 07:46 01/04/20 07:46 Oxygen Delivery Method Room Air Weight: 72.6 kg Body Mass Index (BMI) 25.0 Intake and Output for Last 24 Hours 01/02/20 01/03/20 01/04/20 23:59 23:59 23:59 Intake Total 6431.67 / 6431.67 6645 / 6995 1500 / 1500 Output Total 7300 / 7300 3570 / 4670 2175 / 2175 Balance -868.33 / -868.33 3075 / 2325 -675 / -675 Laboratory Results 01/04/20 05:52: Sodium 143, Potassium 4.2, Chloride 113 H, Carbon Dioxide 25.0, Anion Gap 5, BUN 39 H, Creatinine 2.68 H, Estim Creat Clear Calc 24.32, Est GFR (MDRD) Af Amer 31 L, Est GFR (MDRD) Non-Af 25 L, BUN/Creatinine Ratio 14.6, Glucose 99, Calcium 8.4 L, Total Bilirubin 0.40, AST 141 H, ALT 474 H, Alkaline Phosphatase 85, Total Creatine Kinase 796 H, Total Protein 6.3 L, Albumin 2.6 L, Globulin 3.7, Albumin/Globulin Ratio 0.7 L Current Medications Amlodipine Besylate (Norvasc) 10 mg PO DAILY [facility] Last Admin: 01/04/20 07:51 Dose: 10 mg Documented by: Enoxaparin Sodium (Lovenox) 40 mg SC DAILY [facility] Last Admin: 01/03/20 08:18 Dose: 40 mg Documented by: Glucagon () 1 mg IM .X1 PRN PRN Reason: Hypoglycemia Dextrose (Dextrose 10%-Water) 250 mls @ 999 mls/hr IV .Q16M PRN; Protocol PRN Reason: HYPOGLYCEMIA Sodium Chloride () 250 mls @ 15 mls/hr IV .[id number] PRN PRN Reason: Saline Flush Dextrose () 1,000 mls @ 50 mls/hr IV .Q20H [facility] Last Admin: 01/04/20 03:37 Dose: 50 mls/hr Documented by: Sodium Chloride () 1,000 mls @ 75 mls/hr IV .[id number] [facility] Last Admin: 01/03/20 22:11 Dose: 75 mls/hr Documented by: Levothyroxine Sodium (Synthroid) 50 mcg PO DAILY@0600 [facility] Last Admin: 01/04/20 05:44 Dose: 50 mcg Documented by: Melatonin (Melatonin) 3 mg PO QHS PRN PRN PRN Reason: INSOMNIA Ondansetron HCl (Zofran) 4 mg IV Q8H PRN PRN PRN Reason: NAUSEA/VOMITING Sodium Chloride () 10 - 40 ml IV UD PRN PRN Reason: SALINE FLUSH Discharge Diet: No Restrictions Discharge Activity: Return to Normal Activity Home Medications: Medications to take at Discharge Levothyroxine [Synthroid] 50 mcg PO DAILY 06/18/19 Amlodipine [Norvasc] 10 mg PO DAILY #90 tab 01/04/20 Following Prescrptions Were Given to Patient: Amlodipine [Norvasc] 10 mg PO DAILY #90 tab Transmission Status: [facility] by [facility] Other Amb Orders: CPK Total, Creatine Kinase Facility: [facility], Location: Laboratory Liver Profile Time Frame: 01/06/20, Facility: [facility], Location: Laboratory Renal Profile Time Frame: 01/06/20, Facility: [facility], Location: Laboratory Primary Care Physician: Aury Owens MD [Primary Care Provider] - Please follow up with your Primary Care Physician in: 1 week Please Follow Up With: Sandy Sharma When: In 5 to 7 days Disposition: Home Minutes spent on discharge:: 35 Patient Condition:: Stable Medical Necessity - Tobacco Use Smoking Status: Former smoker Tobacco Use: Cigarettes Meaningful Use Info Meaningful Use Diagnoses (Choose all that apply): None applicable Code Visit Inpatient E&M: 58877 Disch Hosp
[2020-01-04] MEDS: Enoxaparin 30 MG/0.3 ML Syringe SC (10:01)
[2020-01-04 12:28] VITALS: BP 141/75; PULSE 73; RESP 18; TEMP 36.8; O2SAT 99
--- NOTE | 2020-01-05 17:53 | CASEMGMT ---
Case Management DC F/u Call: DC Date: 01/04/2020 DC Diagnosis: Acute renal failure (Acute), Rhabdomyolysis (Acute), Elevated liver enzymes (Acute), Myoglobinuria (Acute) DC Disposition: Home Lace/Strata: 08/12 Called patient listed cell number in demographics, multiple rings, appeared that someone answered without sound and hung up on this director underwriter sales. No further attempts made. Becky Medrano RNCM
== END 2020-01-04 13:04 | disposition home or self-care (01) | DRG 557 ==
LOC: ED 21:40 → MS3 12-29 07:07
PROVIDERS: Internal Medicine; Internal Medicine Nephrology; Admitting Provider Hospitalist; Emergency Provider Emergency Medicine; PCP Family Medicine; Visit Provider Internal Medicine
DX: M62.82 Rhabdomyolysis (principal); N17.0 Acute kidney failure with tubular necrosis; R82.1 Myoglobinuria; J10.1 Influenza due to other identified influenza virus with other respiratory manifestations; E03.9 Hypothyroidism, unspecified; R74.0 Nonspecific elevation of levels of transaminase and lactic acid dehydrogenase [LDH]; R79.89 Other specified abnormal findings of blood chemistry; Z87.891 Personal history of nicotine dependence; I10 Essential (primary) hypertension
CPT/HCPCS: 36415; 74176; 80048; 80053; 80069; 80074; 80076; 80307; 81001; 82085; 82550; 83036; 83516; 83690; 84443; 84484; 85025; 85610; 86038; 86225; 86235; 86703; 87633; 93005; 99251; 99284; J7030; A4216; G0463

== ENCOUNTER → 2020-01-06 12:02 | Outpatient (CLI) | payer MEDICARE, SELFPAY ==
[2019-12-28 23:00] VITALS: BMI 25.0
[2020-01-06 13:11] LABS: ALB/GLOB Ratio 0.7 RATIO (0.9-2.4); AST(SGOT) 60 U/L (15-37); Alanine Aminotransfer ALT/SGPT 298 U/L (16-61); Albumin, Serum 2.8 g/dL (3.2-5.0); Alkaline Phosphatase 92 U/L (45-117); BUN 41 mg/dL (7-18); BUN/Creat Ratio 14.1 RATIO (10-20); Bilirubin, Direct 0.05 mg/dL (0.00-0.30); CPK Total, Creatine Kinase 379 U/L (39-308); Calcium,Total 8.5 mg/dL (8.5-10.1); Chloride 110 mmol/L (98-107); Creatinine, Serum 2.91 mg/dL (0.70-1.30); EST Glomerular Filtration Rate 23 mL/min (>60); Est Glom Filt Rate - Afr Amer 28 mL/min (>60); Globulin 3.9 g/dL (2.2-4.2); Glucose 121 mg/dL (74-106); Phosphorus 3.6 mg/dL (2.5-4.9); Potassium 4.1 mmol/L (3.5-5.1); Protein, Total 6.7 g/dL (6.4-8.2); Sodium Level 141 mmol/L (136-145)
== END ==
PROVIDERS: Internal Medicine Nephrology; PCP Family Medicine; Referring Provider Internal Medicine; Visit Provider Internal Medicine
DX: R74.8 Abnormal levels of other serum enzymes (principal); N17.9 Acute kidney failure, unspecified; M62.82 Rhabdomyolysis
CPT/HCPCS: 36415; 80069; 82247; 82248; 82550; 84075; 84156; 84450; 84460

== ENCOUNTER → 2020-01-11 11:03 | Outpatient (CLI) | payer MEDICARE, SELFPAY ==
[2019-12-28 23:00] VITALS: BMI 25.0
[2020-01-11 12:40] LABS: Hemoglobin 13.1 g/dL (13.0-16.5)
[2020-01-11 13:05] LABS: ALB/GLOB Ratio 0.8 RATIO (0.9-2.4); AST(SGOT) 18 U/L (15-37); Alanine Aminotransfer ALT/SGPT 96 U/L (16-61); Albumin, Serum 3.1 g/dL (3.2-5.0); Alkaline Phosphatase 93 U/L (45-117); Anion Gap 6 (5-15); BUN 40 mg/dL (7-18); BUN/Creat Ratio 15.8 RATIO (10-20); CPK Total, Creatine Kinase 236 U/L (39-308); Calcium,Total 8.9 mg/dL (8.5-10.1); Chloride 112 mmol/L (98-107); Creatinine, Serum 2.53 mg/dL (0.70-1.30); EST Glomerular Filtration Rate 27 mL/min (>60); Est Glom Filt Rate - Afr Amer 33 mL/min (>60); Globulin 4.1 g/dL (2.2-4.2); Glucose 94 mg/dL (74-106); Potassium 4.7 mmol/L (3.5-5.1); Protein, Total 7.2 g/dL (6.4-8.2); Sodium Level 142 mmol/L (136-145)
== END ==
PROVIDERS: PCP Family Medicine; Visit Provider Internal Medicine Nephrology
DX: N17.9 Acute kidney failure, unspecified (principal)
CPT/HCPCS: 36415; 80053; 82550; 85018

== ENCOUNTER → 2020-01-17 12:30 | Outpatient (CLI) | payer MEDICARE, SELFPAY ==
[2019-12-28 23:00] VITALS: BMI 25.0
[2020-01-17 13:24] LABS: Anion Gap 5 (5-15); BUN 29 mg/dL (7-18); BUN/Creat Ratio 13.1 RATIO (10-20); Calcium,Total 8.6 mg/dL (8.5-10.1); Chloride 112 mmol/L (98-107); Creatinine, Serum 2.22 mg/dL (0.70-1.30); EST Glomerular Filtration Rate 31 mL/min (>60); Est Glom Filt Rate - Afr Amer 38 mL/min (>60); Glucose 114 mg/dL (74-106); Potassium 4.1 mmol/L (3.5-5.1); Sodium Level 142 mmol/L (136-145)
== END ==
PROVIDERS: PCP Family Medicine; Referring Provider Internal Medicine Nephrology; Visit Provider Internal Medicine Nephrology
DX: N17.9 Acute kidney failure, unspecified (principal)
CPT/HCPCS: 36415; 80048

== ENCOUNTER 2020-02-07 09:58 | Outpatient (RCR) | payer MEDICARE, SELFPAY ==
[2020-01-24 13:12] LABS: Albumin, Serum 3.4 g/dL (3.2-5.0); BUN 26 mg/dL (7-18); BUN/Creat Ratio 12.9 RATIO (10-20); Calcium,Total 8.7 mg/dL (8.5-10.1); Chloride 113 mmol/L (98-107); Creatinine, Serum 2.01 mg/dL (0.70-1.30); EST Glomerular Filtration Rate 35 mL/min (>60); Est Glom Filt Rate - Afr Amer 42 mL/min (>60); Glucose 98 mg/dL (74-106); Phosphorus 2.7 mg/dL (2.5-4.9); Potassium 4.1 mmol/L (3.5-5.1); Sodium Level 143 mmol/L (136-145)
[2020-01-31 11:13] LABS: Anion Gap 9 (5-15); BUN 31 mg/dL (7-18); BUN/Creat Ratio 16.6 RATIO (10-20); Calcium,Total 8.5 mg/dL (8.5-10.1); Chloride 107 mmol/L (98-107); Creatinine, Serum 1.87 mg/dL (0.70-1.30); EST Glomerular Filtration Rate 38 mL/min (>60); Est Glom Filt Rate - Afr Amer 46 mL/min (>60); Glucose 117 mg/dL (74-106); Potassium 4.5 mmol/L (3.5-5.1); Sodium Level 141 mmol/L (136-145)
[2020-02-07 10:59] LABS: Anion Gap 5 (5-15); BUN 26 mg/dL (7-18); BUN/Creat Ratio 14.4 RATIO (10-20); Calcium,Total 8.7 mg/dL (8.5-10.1); Chloride 110 mmol/L (98-107); EST Glomerular Filtration Rate 40 mL/min (>60); Est Glom Filt Rate - Afr Amer 48 mL/min (>60); Glucose 125 mg/dL (74-106); Potassium 3.9 mmol/L (3.5-5.1); Sodium Level 141 mmol/L (136-145)
== END 2020-02-07 18:00 | disposition home or self-care (01) ==
LOC: LAB 09:58
PROVIDERS: PCP Family Medicine; Referring Provider Internal Medicine Nephrology; Visit Provider Internal Medicine Nephrology
DX: N17.9 Acute kidney failure, unspecified (principal)
CPT/HCPCS: 36415; 80048; 80069

== ENCOUNTER 2020-02-28 10:17 | Outpatient (RCR) | payer MEDICARE, SELFPAY ==
[2020-02-28 11:00] LABS: Albumin, Serum 3.5 g/dL (3.2-5.0); BUN 25 mg/dL (7-18); BUN/Creat Ratio 15.2 RATIO (10-20); Calcium,Total 8.4 mg/dL (8.5-10.1); Chloride 113 mmol/L (98-107); Creatinine, Serum 1.64 mg/dL (0.70-1.30); EST Glomerular Filtration Rate 44 mL/min (>60); Est Glom Filt Rate - Afr Amer 54 mL/min (>60); Glucose 88 mg/dL (74-106); Phosphorus 2.5 mg/dL (2.5-4.9); Potassium 4.1 mmol/L (3.5-5.1); Sodium Level 143 mmol/L (136-145)
== END 2020-03-09 18:00 | disposition home or self-care (01) ==
LOC: LAB 10:17
PROVIDERS: PCP Family Medicine; Referring Provider Internal Medicine Nephrology; Visit Provider Internal Medicine Nephrology
DX: N17.9 Acute kidney failure, unspecified (principal)
CPT/HCPCS: 36415; 80069

== ENCOUNTER 2020-03-20 12:09 | Outpatient (RCR) | payer MEDICARE, SELFPAY ==
[2020-03-20 12:59] LABS: Albumin, Serum 3.4 g/dL (3.2-5.0); BUN 28 mg/dL (7-18); BUN/Creat Ratio 16.6 RATIO (10-20); Calcium,Total 8.7 mg/dL (8.5-10.1); Chloride 112 mmol/L (98-107); Creatinine, Serum 1.69 mg/dL (0.70-1.30); EST Glomerular Filtration Rate 43 mL/min (>60); Est Glom Filt Rate - Afr Amer 52 mL/min (>60); Glucose 80 mg/dL (74-106); Phosphorus 2.9 mg/dL (2.5-4.9); Potassium 4.6 mmol/L (3.5-5.1); Sodium Level 144 mmol/L (136-145)
== END 2020-03-20 18:00 | disposition home or self-care (01) ==
LOC: LAB 12:09
PROVIDERS: PCP Family Medicine; Referring Provider Internal Medicine Nephrology; Visit Provider Internal Medicine Nephrology
DX: N17.9 Acute kidney failure, unspecified (principal)
CPT/HCPCS: 36415; 80069

== ENCOUNTER 2020-04-10 11:00 | Outpatient (RCR) | payer MEDICARE, SELFPAY ==
[2020-04-10 12:27] LABS: Albumin, Serum 3.3 g/dL (3.2-5.0); BUN 24 mg/dL (7-18); BUN/Creat Ratio 14.8 RATIO (10-20); Calcium,Total 8.6 mg/dL (8.5-10.1); Chloride 110 mmol/L (98-107); Creatinine, Serum 1.62 mg/dL (0.70-1.30); EST Glomerular Filtration Rate 45 mL/min (>60); Est Glom Filt Rate - Afr Amer 54 mL/min (>60); Glucose 97 mg/dL (74-106); Phosphorus 2.7 mg/dL (2.5-4.9); Potassium 4.4 mmol/L (3.5-5.1); Sodium Level 141 mmol/L (136-145)
== END 2020-04-10 18:00 | disposition home or self-care (01) ==
LOC: LAB 11:00
PROVIDERS: PCP Family Medicine; Referring Provider Internal Medicine Nephrology; Visit Provider Internal Medicine Nephrology
DX: N17.9 Acute kidney failure, unspecified (principal)
CPT/HCPCS: 36415; 80069

== ENCOUNTER 2020-07-24 10:30 | Outpatient (RCR) | payer MEDICARE, SELFPAY ==
[2020-07-24 11:54] LABS: Albumin, Serum 3.3 g/dL (3.2-5.0); BUN 25 mg/dL (7-18); BUN/Creat Ratio 15.2 RATIO (10-20); Calcium,Total 8.2 mg/dL (8.5-10.1); Chloride 111 mmol/L (98-107); Creatinine, Serum 1.64 mg/dL (0.70-1.30); EST Glomerular Filtration Rate 44 mL/min (>60); Est Glom Filt Rate - Afr Amer 54 mL/min (>60); Glucose 119 mg/dL (74-106); Phosphorus 2.2 mg/dL (2.5-4.9); Potassium 3.9 mmol/L (3.5-5.1); Sodium Level 142 mmol/L (136-145)
== END 2020-07-24 18:00 | disposition home or self-care (01) ==
LOC: LAB 10:30
PROVIDERS: PCP Family Medicine; Referring Provider Internal Medicine Nephrology; Visit Provider Internal Medicine Nephrology
DX: N17.9 Acute kidney failure, unspecified (principal)
CPT/HCPCS: 36415; 80069

== ENCOUNTER → 2020-10-12 10:35 | Outpatient (CLI) | payer MEDICARE, SELFPAY ==
[2020-10-12 11:12] LABS: Hematocrit 44.5 % (40-54); Hemoglobin 14.8 g/dL (13.0-16.5); Mean Corp Hgb Conc 33.3 g/dL (32-36); Mean Corpuscular Hgb 31.8 pg (27.0-32.0); Mean Corpuscular Volume 95.7 fL (80-94); Mean Platelet Vol. 9.9 fl (6.2-12.0); Platelet Count 282 K/mm3 (150-450); RBC Distribution Width CV 13.2 % (11.6-14.6); RBC Distribution Width SD 46.4 fl (35.1-43.9); Red Blood Count 4.65 M/mm3 (4.6-6.2); White Blood Count 6.1 K/mm3 (4.4-11.0)
[2020-10-12 11:29] LABS: Albumin, Serum 3.5 g/dL (3.2-5.0); BUN 24 mg/dL (7-18); BUN/Creat Ratio 14.1 RATIO (10-20); Calcium,Total 8.8 mg/dL (8.5-10.1); Chloride 110 mmol/L (98-107); EST Glomerular Filtration Rate 43 mL/min (>60); Est Glom Filt Rate - Afr Amer 51 mL/min (>60); Glucose 135 mg/dL (74-106); Phosphorus 2.4 mg/dL (2.5-4.9); Potassium 4.3 mmol/L (3.5-5.1); Sodium Level 140 mmol/L (136-145)
[2020-10-12 11:31] LABS: PTHIN 100.6 pg/mL (18.4-80.1)
== END ==
PROVIDERS: PCP Family Medicine; Referring Provider Internal Medicine Nephrology; Visit Provider Internal Medicine Nephrology
DX: N18.30 Chronic kidney disease, stage 3 unspecified (principal)
CPT/HCPCS: 36415; 80069; 83970; 85027

== ENCOUNTER → 2020-11-20 15:56 | Outpatient (CLI) | payer MEDICARE, SELFPAY ==
[2020-11-20 17:14] LABS: PSA,Total- Diagnostic 2.28 ng/mL (0.0-4.0)
== END ==
PROVIDERS: PCP Family Medicine; Visit Provider Urology
DX: R97.20 Elevated prostate specific antigen [PSA] (principal)
CPT/HCPCS: 36415; 84153

== ENCOUNTER → 2021-04-14 09:18 | Outpatient (CLI) | payer MEDICARE, SELFPAY ==
[2021-04-14 09:46] LABS: Hematocrit 43.7 % (40-54); Hemoglobin 14.3 g/dL (13.0-16.5); Mean Corp Hgb Conc 32.7 g/dL (32-36); Mean Corpuscular Hgb 30.6 pg (27.0-32.0); Mean Corpuscular Volume 93.6 fL (80-94); Mean Platelet Vol. 10.1 fl (6.2-12.0); Platelet Count 253 K/mm3 (150-450); RBC Distribution Width CV 13.3 % (11.6-14.6); RBC Distribution Width SD 45.2 fl (35.1-43.9); Red Blood Count 4.67 M/mm3 (4.6-6.2); White Blood Count 4.8 K/mm3 (4.4-11.0)
[2021-04-14 10:21] LABS: Albumin, Serum 3.5 g/dL (3.2-5.0); BUN 24 mg/dL (7-18); BUN/Creat Ratio 15.7 RATIO (10-20); Calcium,Total 8.6 mg/dL (8.5-10.1); Chloride 113 mmol/L (98-107); Creatinine, Serum 1.53 mg/dL (0.70-1.30); EST Glomerular Filtration Rate 48 mL/min (>60); Est Glom Filt Rate - Afr Amer 58 mL/min (>60); Glucose 100 mg/dL (74-106); Phosphorus 2.8 mg/dL (2.5-4.9); Potassium 4.1 mmol/L (3.5-5.1); Sodium Level 142 mmol/L (136-145)
[2021-04-14 10:27] LABS: Vitamin D,25 Hydroxy 31.4 ng/mL
[2021-04-14 10:49] LABS: Creat.Clear Total Volume 2075 mL; Creatinine Clearance 62 ml/min (100-200); Creatinine Serum Creat 1.5 mg/dL (0.8-1.3); Creatinine Urine 65.4 mg/dL (NO RANGE EST.)
[2021-04-14 10:51] LABS: 24 Hour Urine Protein 163.9 mg/24HR (<150 MG/24HR); 24HR. UA Prot. Total Volume 2075 mL; Urine Protein (24 Hour) 7.9 mg/dL (<11.9)
[2021-04-14 10:55] LABS: EST Glomerular Filtration Rate 48 mL/min (>60); Est Glom Filt Rate - Afr Amer 58 mL/min (>60)
== END ==
PROVIDERS: PCP Family Medicine; Visit Provider Internal Medicine Nephrology
DX: N18.32 Chronic kidney disease, stage 3b (principal); N25.81 Secondary hyperparathyroidism of renal origin
CPT/HCPCS: 36415; 80069; 81050; 82306; 82575; 83970; 84156; 85027

== ENCOUNTER → 2021-06-01 09:25 | Outpatient (CLI) | payer MEDICARE, SELFPAY ==
[2021-06-01 10:13] LABS: Cholesterol 205 mg/dL (200); High Density Lipoprotein 54 mg/dL; Triglycerides 104 mg/dL; Very Low Density Lipoprotein 21 mg/dL (5-40)
== END ==
PROVIDERS: PCP Family Medicine; Visit Provider Family Medicine
DX: Z00.00 Encounter for general adult medical examination without abnormal findings (principal); N18.4 Chronic kidney disease, stage 4 (severe)
CPT/HCPCS: 36415; 80061

== ENCOUNTER → 2021-09-13 09:43 | Outpatient (CLI) | payer MEDICARE, SELFPAY ==
[2021-09-13 11:16] LABS: AST(SGOT) 13 U/L (15-37); Alanine Aminotransfer ALT/SGPT 17 U/L (16-61); Albumin, Serum 3.3 g/dL (3.2-5.0); Alkaline Phosphatase 80 U/L (45-117); Bilirubin, Direct 0.16 mg/dL (0.00-0.30); Cholesterol 137 mg/dL (200); Globulin 3.6 g/dL (2.2-4.2); High Density Lipoprotein 53 mg/dL; Protein, Total 6.9 g/dL (6.4-8.2); Triglycerides 82 mg/dL; Very Low Density Lipoprotein 16 mg/dL (5-40)
== END ==
PROVIDERS: PCP Family Medicine; Referring Provider Family Medicine; Visit Provider Family Medicine
DX: E78.5 Hyperlipidemia, unspecified (principal); N18.30 Chronic kidney disease, stage 3 unspecified; M62.82 Rhabdomyolysis
CPT/HCPCS: 36415; 80061; 80076

== ENCOUNTER → 2021-10-19 11:24 | Outpatient (CLI) | payer MEDICARE, SELFPAY ==
[2021-10-19 12:23] LABS: Albumin, Serum 3.4 g/dL (3.2-5.0); BUN 22 mg/dL (7-18); BUN/Creat Ratio 14.8 RATIO (10-20); Calcium,Total 8.5 mg/dL (8.5-10.1); Chloride 111 mmol/L (98-107); Creatinine, Serum 1.49 mg/dL (0.70-1.30); EST Glomerular Filtration Rate 49 mL/min (>60); Est Glom Filt Rate - Afr Amer 60 mL/min (>60); Glucose 117 mg/dL (74-106); Phosphorus 2.4 mg/dL (2.5-4.9); Sodium Level 142 mmol/L (136-145)
== END ==
PROVIDERS: PCP Family Medicine; Visit Provider Internal Medicine Nephrology
DX: N18.32 Chronic kidney disease, stage 3b (principal)
CPT/HCPCS: 36415; 80069

== ENCOUNTER 2021-11-14 12:32 | Outpatient (CLI) | payer MEDICARE, SELFPAY ==
[2021-11-14 14:15] LABS: PSA,Total- Diagnostic 2.47 ng/mL (0.0-4.0)
== END 2021-11-14 23:59 | disposition short-term general hospital (02) ==
LOC: LAB 12:34
PROVIDERS: PCP Family Medicine; Referring Provider Urology; Visit Provider Urology
DX: R97.20 Elevated prostate specific antigen [PSA] (principal)
CPT/HCPCS: 36415; 84153

== ENCOUNTER 2022-03-05 16:04 | Emergency (ER) | payer MEDICARE, SELFPAY ==
[2022-03-05 16:05] VITALS: BP 123/80; PULSE 84; RESP 18; TEMP 35.8; O2SAT 97; BMI 25.4
[2022-03-05 16:12] VITALS: BP 144/76; PULSE 78; O2SAT 99
--- NOTE | 2022-03-05 16:46 | EDS_ITS ---
HPI History of Present Illness Chief Complaint: General Illness Informant: patient and spouse/S.O. Onset/Context/Timing Onset: Today Current Severity: Mild Maximum Severity: Mild Narrative Narrative: 72-year-old male history of high cholesterol and hypertension. States he has had rectal pain today. Recently states he feels like he was having difficulty having a bowel movement like he could not empty his bowels. He denies any blood. He denies any fever. He denies any weight change. He has never had any rectal or colon surgery. He has had prior colonoscopies x3 all of which were negative. He denies any fever or chills. Prior similar symptoms: No Recent Illness/Hospitalization: No PFSH PFSH Medical History Enlarged prostate Home Medications amlodipine 10 mg PO DAILY #90 tab 01/04/20 [Rx Last Taken Unknown] [id number] [Preparation H Maximum Strength] 1 applic [place] BID #26 g 03/05/22 [Rx Last Taken Unknown] pravastatin 03/05/22 [History Last Taken Unknown] Allergy/AdvReac Type Severity Reaction Status Date / Time No Known Allergies Allergy Verified 03/05/22 16:08 Family History Mother Heart disease Father Cancer Surgical History History of cholecystectomy History of prostate surgery Social History Smoking Status: Former smoker ROS ROS ED ROS Narrative Rectal pain. Review of Systems ROS Unobtainable: Denies due to encephalopathy Constitutional Constitutional ED: Denies chills or fever(s) Eyes Eyes: Denies change in vision ENT ENT ED: Denies ear pain Cardiovascular Cardiovascular: Denies chest pain Respiratory/Chest Respiratory/Chest: Denies cough, dyspnea or sputum Gastrointestinal Gastrointestinal: Denies abdominal pain, diarrhea, nausea or vomiting Genitourinary Genitourinary ED: Denies dysuria Musculoskeletal Musculoskeletal: Denies myalgias Integumentary Denies rash Neurologic Neurologic: Denies headache(s) Psychiatric Psychiatric: Denies depression Endocrine Endocrinology: Denies polyuria Allergic/Immunologic Allergic/Immunologic ED: Denies urticaria EXAM Physical Exam Narrative Exam Narrative: 70-year-old male no acute distress. Vital signs stable afebrile. HEENT exam unremarkable. Moist extremities. Lungs are clear. Heart regular rhythm. Abdomen soft nontender, nondistended, normal bowel sounds no peritoneal signs. No pulsatile mass. Rectal exam brown stool. 3 large external hemorrhoids. Mildly tender. Not thrombosed. Inflamed. No blood. On rectal exam there is a lot of stool but there is no mass appreciated. No rectal tenderness internally. No blood. Patient had a large bowel movement while in the room and felt improved. Otherwise exam unremarkable Const Vital Signs: 03/05/22 16:05 03/05/22 16:12 03/05/22 16:20 Temperature 96.4 F L Temperature Source Temporal Pulse Rate 84 78 Respiratory Rate 18 Respiratory Effort Normal Respiratory Pattern Normal Blood Pressure 123/80 H 144/76 H Blood Pressure Mean 94 98 Pulse Ox 97 99 Oxygen Delivery Method Room Air Room Air Positive well nourished and well developed; Negative for obese, cachectic, contractures or unkempt General Appearance ED: well developed and NAD; Negative for unkempt, cachectic, contractures, cyanotic, diaphoretic or pallor Nutritional Appearance: Negative for cachectic or obese HEENT Reports moist mucous membranes Negative for trauma or tenderness Eyes PERRL and EOMs intact bilaterally General Eye ED: Negative for pale conjunctiva or scleral icterus Neck no lymphadenopathy, supple and no JVD General: Negative for tenderness Chest Wall inspection of chest normal and palpation of chest normal Chest: Negative for other Resp normal respiratory effort and clear to auscultation bilaterally Effort and Inspection: Negative for pain with movement Auscultation: Negative for rales, rhonchi or wheezes Cardio regular rate, regular rhythm, S1 normal heart sound, S2 normal heart sound and no murmurs GI normal to inspection, nondistended, normoactive bowel sounds, non-tender, non- distended and no masses Inspection: Negative for abdominal distention Auscultation: normoactive bowel sounds Palpation: soft; Negative for tender, guarding or rebound tenderness present Back/Spine no CVA tenderness General Back: Negative for CVA tenderness Cervical Spine: Negative for cervical spine tenderness Thoracic Spine / Upper Back: Negative for thoracic spinal tenderness Extremity normal to inspection General Extremety ED: Negative for edema or tenderness General Extremity: Negative for edema Neuro oriented x3 Sensorium / Orientation: alert; Negative for lethargic or stuporous Motor Exam: strength 5/5 throughout Psych mental status grossly normal Appearance: Negative for unkempt Attitude: No agitated Mood & Affect: Negative for depressed, anxious or tearful Skin no rashes or lesions noted and no wounds General Skin Exam: Negative for jaundice or pallor MDM MDM MDM Narrative Medical decision making narrative: Patient with rectal pain secondary to external hemorrhoids. He will be placed on hemorrhoid cream. Follow-up with Dr. Trace Jaime to see if he needs a hemorrhoidectomy or if the medication will take care of this itself. Also of his continued problems does he need a sigmoidoscopy or colonoscopy. Discharge Plan Triage Chief Complaint: General Illness ED Provider: Zackery Gross Dx/Rx/DC Orders Clinical Impression: External hemorrhoids, Anal or rectal pain Instructions: ED Hemorrhoids Prescriptions: New Preparation H Maximum Strength 0.25-1 % cream 1 applic OH BID Qty: 26 RF: 0 No Action amlodipine 10 MG tablet 10 mg PO DAILY Qty: 90 RF: 0 pravastatin tablet RF: 0 Primary Care Provider: Aury Owens Referrals: Aury Owens MD [Primary Care Provider] - Trace Jones MD [STAFF PHYSICIAN] - As soon as possible Activity Restrictions/Additional Instructions: You have external hemorrhoids you may or may not have internal hemorrhoids. This may have been what was blocking make it difficult for you to have a bowel movement. It could also cause you to have pain. To treat this sit in warm bath water. Also hemorrhoidal cream both on the ou tside hemorrhoids and within your rectum. If that does not improve then she may need a hemorrhoid surgically removed. You can call and follow-up with Dr. Trace Jones about that. Disposition Disposition: Home, Self Care
[2022-03-05 16:52] VITALS: BP 96/87; PULSE 71; RESP 15; O2SAT 98
--- NOTE | 2022-03-08 14:47 | CASEMGMT ---
[facility] ED visit f/u note: ED visit: 03/05/22 Complaint: General illness Call to pt's #. No answer. Non-descript VM left for pt to return call for any questions or concerns. Phone number provided. Zelda AN RN CM
== END 2022-03-05 17:11 | disposition home or self-care (01) ==
PROVIDERS: Emergency Provider Emergency Medicine; PCP Family Medicine; Visit Provider Emergency Medicine
DX: K64.4 Residual hemorrhoidal skin tags (principal); K62.89 Other specified diseases of anus and rectum; Z79.899 Other long term (current) drug therapy; Z87.891 Personal history of nicotine dependence
CPT/HCPCS: 99283

== ENCOUNTER 2022-04-03 09:30 | Outpatient (RCR) | payer MEDICARE, SELFPAY ==
--- NOTE | 2022-03-06 10:00 | HP.PTEVAL_ITS ---
Patient's Visit Information LAURY SWIFT is a 72 year old M referred to Physical Therapy by NYDIA SALINAS with a diagnosis of rupture triceps tendon s/p repair 02/19. Date of Evaluation: 03/06/22 Physical Therapist: Juan Daniel Quach, DPT, OCS, CSCS - Visit Plan Frequency: 1x/Week Duration: 2 Months Plan: 1x/week for 6-8 weeks as needed. Start with PROM extension R elbow and aarom flexion gently to 90 degrees until 03/19 then past. Strengthening when allowed after. ensure other joints getting input. I contacted Dr. Salinas's office today and the staffer stated that there is not a specific protocol to follow but any standard one would be fine. therefore stick with PROM EXt and AAROM flexion to 6 weeks and 90 degree limit until 4 weeks. - Subjective Took a tumble in the yard in January(slipped on some ice). Tore tricep off of R elbow. Surgery to repair it two weeks ago around 02/19. Surgery went well. Saw doctor last Friday and everything looked good. No exercises right now for elbow. Is released to drive. Avoid pushups, no lifting over 10#. No sling. Sleep is good. Pain is hardly there. Not employed. Currently basic ADLs are goign ok with dressing and shower and bathroom. Doing thins L handed and he is R handed. hobbies include normal everyday use of arm. When heatlhy he walks at home and works out at and enjoys yard work. Workout includes machines and TM in gym. - Pain elbow Pain Intensity (Out of 10): 0 Pain Intensity Range: 0, 1 - Objective Walks and trasnfers normal and safe and I protective of R UE slightly. B shoulder, scap, wrist AROM WFL and painfree. Neck AROM painfree and full. R elbow AROM -2 ext to 80 flexion, L side is 0-130. Unable to get R UE to mouth. Shoulder flexion strength 4 B. wrist and thumb ext 4/5 B, no pain. R elbow strength not tested, L elbow 5/5. Incision is clean and steri stripped, dry , no signs of excessive redness heat or swelling. - Balance/Special Test Scores Quick DASH Score: 47.7250 - Goals Goal 1:: Full AROM R elbow acti vely Goal Time Frame: 4-6 Weeks Goal 2:: Resume gentle strength of R UE to I in gym when allowed Goal Time Frame: 6-8 Weeks Goal 3:: Pt able to feed himself and brush own hair with R UE Goal Time Frame: 4-6 Weeks Goal 4:: Pt feel 90% back to normal Goal Time Frame: 6-8 Weeks - Rehabilitation Potential Physical Therapy Diagnosis: s/p triceps repair with limtied ROM dominant arm. Rehabilitation Potential: Good - Anticipated Interventions Patient/Client Instruction: Educate patient on: Condition, Plan of Care For the Purpose of:: To decrease pain, To increase ROM, To improve muscle performance and motor function, To increase tolerance to activity/condition/position, To improve ability of physical actions for home/community/work/leisure Therapeutic Exercise to Include: Strength training, Flexibilty training, Passive ROM, Active ROM, Scapular Strength/Stabilization For the Purpose of:: To decrease pain, To increase ROM, To improve muscle performance and motor function, To increase tolerance to activity/condition/position, To improve ability of physical actions for home/community/work/leisure Manual Therapy Techniques to Include: Mobilization, Soft tissue mobilization For the Purpose of:: To increase ROM, To improve muscle performance and motor function Cryotherapy (ice pack, ice massage): Yes For the Purpose of:: To decrease swelling/inflammation Thank you for the opportunity to evaluate your patient. For Medicare and Medicare HMO plans, please review the plan of care and approve it. It will need to be FAXED BACK to us at [phone] for Medicare purposes. For Medicare only, by signing this I certify the plan of care. Please let me know if there are questions or concerns regarding this plan of care. Physician Signature: Date:
--- NOTE | 2022-03-27 09:54 | HP.PTREVAL ---
NYDIA MÉNDEZ, It has been my pleasure to treat LAURY SWIFT over the last 4 visits for rupture triceps tendon s/p repair 02/19. Please see the progress note below for an update on the physical therapy plan of care! Subjective: Did pretty good in the last week. No serious pain. 4/10 pain with certain movements of arm. 0/10 pain most of time. Sleeping well. Doing most things with arm in ADLS including combing hair and feeding self with jjust some limited tightness. Have not tried to lift anything really heavy. Objective/Function: 40 flexion on L and 50 on Right , missing 10 degrees. Full extension R without pain. Doing exercises without a problem. 30% push on isometrics without a problem. Plan Plan: f/u after doctor visit and progress strength and ensure full ROM. Continue weekly x 2-4 for progressions. Balance/Gait/Functional tests - Balance/Special Test Scores Quick DASH Score: 47.7250 Goals Goal 1:: Full AROM R elbow acti vely Goal Time Frame: 4-6 Weeks Goal 2:: Resume gentle strength of R UE to I in gym when allowed Goal Time Frame: 6-8 Weeks Goal 3:: Pt able to feed himself and brush own hair with R UE Goal Time Frame: 4-6 Weeks Goal 4:: Pt feel 90% back to normal Goal Time Frame: 6-8 Weeks Anticipated Interventions Patient/Client Instruction: Educate patient on: Condition, Plan of Care For the Purpose of:: To decrease pain, To increase ROM, To improve muscle performance and motor function, To increase tolerance to activity/condition/position, To improve ability of physical actions for home/community/work/leisure Therapeutic Exercise to Include: Strength training, Flexibilty training, Passive ROM, Active ROM, Scapular Strength/Stabilization For the Purpose of:: To decrease pain, To increase ROM, To improve muscle performance and motor function, To increase tolerance to activity/condition/position, To improve ability of physical actions for home/community/work/leisure Manual Therapy Techniques to Include: Mobilization, Soft tissue mobilization For the Purpose of:: To increase ROM, To improve muscle performance and motor function Cryotherapy (ice pack, ice massage): Yes For the Purpose of:: To decrease swelling/inflammation Please do not hesitate to contact me at [phone] by phone or if you have questions or concerns regarding this new plan of care! Sincerely, Juan Daniel Quach, DPT, OCS, CSCS
--- NOTE | 2022-04-03 09:46 | HP.PTDCSUM ---
It has been my pleasure to treat LAURY SWIFT referred by NYDIA MÉNDEZ, with the diagnosis of rupture triceps tendon s/p repair 02/19 for a total of 5 visit(s). Discharge Date: 04/03/22 Please see the following information for a summary of their discharge status. Subjective: Doctor was pleased. Pain has not returned. Sleeping well. Back to doctor in 3 months. Therapy was up to patient. Exercises went well. Pt wishes to be done with PT. elbow Pain Intensity (Out of 10): 0 % Improvement: 100 Objective/Function: Full elbow AROM and shoulder and wrist also. Some minor weakness that is funcitonal in R elbow extension but otherwise doing well. Goal 1:: Full AROM R elbow acti vely Goal Progress: Goal Met Goal 2:: Resume gentle strength of R UE to I in gym when allowed Goal Progress: band Goal 3:: Pt able to feed himself and brush own hair with R UE Goal Progress: Goal Met Goal 4:: Pt feel 90% back to normal Goal Progress: Goal Met Plan: d/c Discharge Comments: pt to call if problems. If there are questions or concerns regarding this patient's physical therapy, please feel free to call me at [phone]. Thank you for the referral of this patient. Sincerely, Juan Daniel Quach, DPT, OCS, CSCS Balance/Gait/Functional tests - Balance/Special Test Scores Quick DASH Score: [phone]
== END 2022-04-03 19:00 | disposition home or self-care (01) ==
LOC: PT 09:30
PROVIDERS: PCP Family Medicine
DX: S46.311D Strain of muscle, fascia and tendon of triceps, right arm, subsequent encounter (principal)
CPT/HCPCS: 97110; 97161

== ENCOUNTER → 2022-06-06 | Outpatient (CLI) | payer MEDICARE, SELFPAY ==
[2022-06-06 12:27] LABS: Absolute Lymphocyte Count 1.82 X10^3/uL (0.83-4.51); Absolute Neutrophil Count 3.5 X10^3/uL (2.0-7.7); Basophil# 0.05 X10^3/uL; Basophil% 0.8 % (0-1); Eosinophil# 0.11 X10^3/uL; Eosinophils% 1.8 % (0-5); Hematocrit 44.8 % (40-54); Hemoglobin 15.4 g/dL (13.0-16.5); Lymphocyte # 1.82 X10^3/ul (0.83-4.51); Lymphocyte % 29.9 % (19-41); Mean Corp Hgb Conc 34.4 g/dL (32-36); Mean Corpuscular Hgb 31.6 pg (27.0-32.0); Mean Corpuscular Volume 91.8 fL (80-94); Mean Platelet Vol. 10.3 fl (6.2-12.0); Monocyte# 0.56 X10^3/uL; Monocyte% 9.2 % (0-10); NRBC Flagged by Analyzer 0 % (0-5); Neutrophil # 3.54 X10^3/uL (2.7-7.7); Neutrophil % 58.1 % (47-70); Platelet Count 254 K/mm3 (150-450); RBC Distribution Width CV 13.2 % (11.6-14.6); RBC Distribution Width SD 44.4 fl (35.1-43.9); Red Blood Count 4.88 M/mm3 (4.6-6.2); White Blood Count 6.1 K/mm3 (4.4-11.0)
[2022-06-06 13:10] LABS: ALB/GLOB Ratio 1.1 RATIO (0.9-2.4); AST(SGOT) 10 U/L (15-37); Alanine Aminotransfer ALT/SGPT 16 U/L (16-61); Albumin, Serum 3.7 g/dL (3.2-5.0); Alkaline Phosphatase 80 U/L (45-117); Anion Gap 4 (5-15); BUN 24 mg/dL (7-18); BUN/Creat Ratio 15.3 RATIO (10-20); Calcium,Total 8.8 mg/dL (8.5-10.1); Chloride 112 mmol/L (98-107); Cholesterol 147 mg/dL (200); Creatinine, Serum 1.57 mg/dL (0.70-1.30); EST Glomerular Filtration Rate 46 mL/min (>60); Est Glom Filt Rate - Afr Amer 56 mL/min (>60); Globulin 3.3 g/dL (2.2-4.2); Glucose 98 mg/dL (74-106); High Density Lipoprotein 53 mg/dL; Potassium 4.2 mmol/L (3.5-5.1); Sodium Level 141 mmol/L (136-145); Thyroid Stim Hormone (TSH) 3.04 uIU/mL (0.358-3.74); Triglycerides 100 mg/dL; Very Low Density Lipoprotein 20 mg/dL (5-40)
== END | disposition home or self-care (01) ==
PROVIDERS: PCP Family Medicine; Visit Provider Family Medicine
DX: N18.30 Chronic kidney disease, stage 3 unspecified (principal); E03.9 Hypothyroidism, unspecified; E78.5 Hyperlipidemia, unspecified
CPT/HCPCS: 36415; 80053; 80061; 84443; 85025

== ENCOUNTER → 2022-10-15 | Outpatient (CLI) | payer MEDICARE, SELFPAY ==
[2022-10-15 11:40] LABS: PTHIN 82.2 pg/mL (18.4-80.1)
[2022-10-15 11:46] LABS: Albumin, Serum 3.5 g/dL (3.2-5.0); BUN 23 mg/dL (7-18); BUN/Creat Ratio 15.6 RATIO (10-20); Calcium,Total 8.9 mg/dL (8.5-10.1); Chloride 107 mmol/L (98-107); Creatinine, Serum 1.47 mg/dL (0.70-1.30); EST Glomerular Filtration Rate 50 mL/min (>60); Est Glom Filt Rate - Afr Amer 60 mL/min (>60); Glucose 103 mg/dL (74-106); Phosphorus 2.5 mg/dL (2.5-4.9); Potassium 4.2 mmol/L (3.5-5.1); Sodium Level 140 mmol/L (136-145)
== END | disposition home or self-care (01) ==
PROVIDERS: PCP Family Medicine; Referring Provider Internal Medicine Nephrology; Visit Provider Internal Medicine Nephrology
DX: N18.31 Chronic kidney disease, stage 3a (principal)
CPT/HCPCS: 36415; 80069; 83970

== ENCOUNTER → 2022-12-24 | Outpatient (CLI) | payer MEDICARE, SELFPAY ==
[2022-12-24 11:09] LABS: PSA,Total - Annual Screen 2.19 ng/mL (0.00-4.00)
== END | disposition home or self-care (01) ==
LOC: LAB 10:08
PROVIDERS: PCP Family Medicine; Referring Provider Registered Nurse; Visit Provider Registered Nurse
DX: Z12.5 Encounter for screening for malignant neoplasm of prostate (principal)
CPT/HCPCS: 36415; 84153; G0103

== ENCOUNTER → 2023-06-16 | Outpatient (CLI) | payer MEDICARE, SELFPAY ==
[2023-06-16 12:14] LABS: Absolute Lymphocyte Count 1.55 X10^3/uL (0.83-4.51); Absolute Neutrophil Count 3.4 X10^3/uL (2.0-7.7); Basophil# 0.07 X10^3/uL; Basophil% 1.3 % (0-1); Eosinophil# 0.07 X10^3/uL; Eosinophils% 1.3 % (0-5); Hematocrit 48.7 % (40-54); Hemoglobin 16.7 g/dL (13.0-16.5); Lymphocyte # 1.55 X10^3/ul (0.83-4.51); Mean Corp Hgb Conc 34.3 g/dL (32-36); Mean Corpuscular Hgb 31.6 pg (27.0-32.0); Mean Corpuscular Volume 92.2 fL (80-94); Mean Platelet Vol. 10.3 fl (6.2-12.0); Monocyte# 0.49 X10^3/uL; Monocyte% 8.8 % (0-10); NRBC Flagged by Analyzer 0 % (0-5); Neutrophil # 3.35 X10^3/uL (2.7-7.7); Neutrophil % 60.4 % (47-70); Platelet Count 254 K/mm3 (150-450); RBC Distribution Width SD 43.8 fl (35.1-43.9); Red Blood Count 5.28 M/mm3 (4.6-6.2); White Blood Count 5.5 K/mm3 (4.4-11.0)
[2023-06-16 13:23] LABS: AST(SGOT) 18 U/L (15-37); Alanine Aminotransfer ALT/SGPT 17 U/L (16-61); Albumin, Serum 3.4 g/dL (3.2-5.0); Alkaline Phosphatase 82 U/L (45-117); Anion Gap 6 (5-15); BUN 22 mg/dL (7-18); BUN/Creat Ratio 15.2 RATIO (10-20); Calcium,Total 8.5 mg/dL (8.5-10.1); Chloride 110 mmol/L (98-107); Cholesterol 139 mg/dL (200); Creatinine, Serum 1.45 mg/dL (0.70-1.30); EST Glomerular Filtration Rate 51 mL/min (>60); Est Glom Filt Rate - Afr Amer 61 mL/min (>60); Globulin 3.5 g/dL (2.2-4.2); Glucose 87 mg/dL (74-106); High Density Lipoprotein 56 mg/dL; Protein, Total 6.9 g/dL (6.4-8.2); Sodium Level 139 mmol/L (136-145); Thyroid Stim Hormone (TSH) 2.79 uIU/mL (0.358-3.74); Triglycerides 71 mg/dL; Very Low Density Lipoprotein 14 mg/dL (5-40)
== END | disposition home or self-care (01) ==
LOC: BFHLAB 10:49
PROVIDERS: PCP Family Medicine; Referring Provider Family Medicine; Visit Provider Family Medicine
DX: N18.30 Chronic kidney disease, stage 3 unspecified (principal); E03.9 Hypothyroidism, unspecified; E78.5 Hyperlipidemia, unspecified
CPT/HCPCS: 36415; 80053; 80061; 84443; 85025

== ENCOUNTER → 2023-10-15 | Outpatient (CLI) | payer MEDICARE, SELFPAY ==
[2023-10-15 10:15] LABS: Protein, Urine (Random) 15.3 mg/dL (<11.9); Protein:Creat Ratio 133 mg/g CRE (0-200)
[2023-10-15 10:23] LABS: Albumin, Serum 3.4 g/dL (3.2-5.0); BUN 24 mg/dL (7-18); BUN/Creat Ratio 16.3 RATIO (10-20); Calcium,Total 8.4 mg/dL (8.5-10.1); Chloride 110 mmol/L (98-107); Creatinine, Serum 1.47 mg/dL (0.70-1.30); EST Glomerular Filtration Rate 50 mL/min (>60); Est Glom Filt Rate - Afr Amer 60 mL/min (>60); Glucose 126 mg/dL (74-106); Phosphorus 2.8 mg/dL (2.5-4.9); Potassium 4.4 mmol/L (3.5-5.1); Sodium Level 141 mmol/L (136-145)
== END | disposition home or self-care (01) ==
LOC: LAB 09:02
PROVIDERS: PCP Family Medicine; Referring Provider Internal Medicine Nephrology; Visit Provider Internal Medicine Nephrology
DX: N18.31 Chronic kidney disease, stage 3a (principal)
CPT/HCPCS: 36415; 80069; 82570; 84156

== ENCOUNTER → 2023-12-25 | Outpatient (CLI) | payer MEDICARE, SELFPAY ==
--- OUTSIDE RECORDS SUMMARY | 2023-12-25 11:35 | XMS RPT_ITS | CCD ---
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 30 tablet 1 02/19/2022 Active Problems Problem Classification Problem Date Documented Da te Episodic/Chronic Chronic kidney disease (3 sources) Chronic kidney disease stage 3; Translations: [Stage 3 chronic kidney disease] Onset: 02-19-2022 02-19-2022 Chronic Disorders of lipid metabolism (3 sources) Hyperlipidemia; Translations: [Hyperlipidemia, unspecified] Onset: 02-19-2022 02-19-2022 Chronic Essential hypertension (3 sources) Hypertensive disorder; Translations: [Essential (primary) hypertension] Onset: 02-19-2022 02-19-2022 Chronic Sprains and strains (9 sources) Rupture triceps tendon; Translations: [Strain of muscle, fascia and tendon of triceps, right arm, initial encounter] Onset: 02-15-2022 Episodic Thyroid disorders (3 sources) Hypothyroidism; Translations: [Hypothyroidism, unspecified] Onset: 02-19-2022 02-19-2022 Chronic Results Test Name Value Interpretation Reference Range Facil ity Vital Signs Date Time Vital Sign Value Performing Clinician Larisa lozano 05-15-2022 14:04-0400 Body height 170.2 cm Dayo Salinas MD Work Phone: [facility] 05-15-2022 14:04-040 Body weight 72.58 kg Dayo Salinas MD Work Phone: [facility] 05-15-2022 14:04-0400 Respiratory rate 18 /min Dayo Salinas MD Work Phone: [facility] 04-01-2022 13:01-0400 Body height 170.2 cm Dayo Salinas MD Work Phone: [facility] 04-01-2022 13:01-0400 Body weight 72.58 kg Dayo Salinas MD Work Phone: [facility] 04-01-2022 13:01-0400 Respiratory rate 18 /min Dayo Salinas MD Work Phone: [facility] 03-04-2022 08:56-0400 Body height 170.2 cm Dayo Salinas MD Work Phone: [facility] 03-04-2022 08:56-0400 Body weight 72.58 kg Dayo Salinas MD Work Phone: [facility] 03-04-2022 08:56-0400 Respiratory rate 20 /min Dayo Salinas MD Work Phone: [facility] 02-15-2022 07:22-0400 Body height 170.2 cm Dayo Salinas MD Work Phone: [facility] 02-15-2022 07:22-0400 Body weight 72.58 kg Dayo Salinas MD Work Phone: [facility] 02-15-2022 07:22-0400 Respiratory rate 20 /min Dayo Salinas MD Work Phone: [facility] Encounters Encounter Date Encounter Type Care Provider Facility Start: 05-15-2022 End: 05-15-2022 Patient encounter procedure Dayo Salinas MD Work Phone: [facility] Plan of Treatment Date Care Activity Detail Author Start: 01-21-2023 BP CONTROLLED (<130/80) BP CONTROLLE D (<130/80) [facility] Start: 07-11-2022 Influenza vaccination INFLUENZA (#1) [facility] Start: 11-10-2021 ADVANCE DIRECTIVE DISCUSSION ADVANCE DIRECTIVE DISCUSSION [facility] Start: 2015 PNEUMOCOCCAL: 65+ (1 - PCV) PNEUMOCOCCAL: 65+ (1 - PCV) [facility] Start: 2015 PNEUMOVAX AGE 65 AND OVER WITH 5YR LOOKBACK (#1) PNEUMOVAX AGE 65 AND OVER WITH 5YR LOOKBACK (#1) [facility] Start: 01-25-2000 SHINGRIX VACCINE (1 of 2) SHINGRIX V ACCINE (1 of 2) [facility] Start: 1995 COLOGUARD (FIT-DNA) COLOGUARD (FIT-D NA) [facility] Start: 1995 Colonoscopy COLONOSCOPY [facility] Start: 1995 COLORECTAL CANCER SCREENING COLORECTAL CANCER SCREENING [facility] Start: [address] COLONOGRAPHY [facility] Start: 1995 DIABETES SCREEN DIABETES SCREEN [facility] Start: 1995 FECAL OCCULT BLOOD FECAL OCCULT BLOO D [facility] Start: 1995 SIGMOIDOSCOPY SIGMOIDOSCOPY [facility] Start: 1985 LIPID SCREEN LIPID SCREEN [facility] Start: 1969 Urine microalbumin profile DTAP,TDAP ,TD (1 - Tdap) [facility] Start: 01-25-1968 ANNUAL PCP TEAM SENIOR UI UX DEVELOPER BARRIE DISEASE VISIT ANNUAL PCP TEAM CHRONIC DISEASE VISIT [facility] Start: 01-25-1968 HEMOGLOBIN/HEMATOCRIT HEMOGLOBIN/HEM ATOCRIT [facility] Start: 01-25-1968 HEPATITIS C SCREENING HEPATITIS C SC REENING [facility] Start: 01-25-1968 SERUM CREATININE SERUM CREATININE Cl [facility] Start: 1962 Adult depression scr [facility] DEPRESSION SCREENING [facility] Start: 1955 COVID-19 VACCINE (#1) COVID-19 VACCI NE (#1) [facility] Start: 1955 COVID-19 VACCINE (1) COVID-19 VACCIN E (1) [facility] Start: 1950 COVID-19 VACCINE (#1) COVID-19 VACCI NE (#1) [facility] Payers Date Payer Category Payer Medicare MMO MEDICARE MMO MEDADVANTAGE HMO [id number] 2021-Present [phone] [address] [place] [address] [facility] [id number] Social History Date Type Detail Facility Start: 12-12-2012 Tobacco smoking stat us NHIS Never smoked tobacco [facility] Work Phone: Start: 12-12-2012 Tobacco use and exposure Smokeless tobacco non-user [facility] Work Phone: Start: 01-25-2022 End: 05-15-2022 Alcohol intake Ex-drinker (finding) [facility] Start: 1950 Sex Assigned At Not on file C [facility] Start: 01-11-2022 End: 05-15-2022 Exposure to SARS-CoV-2 (event) Not sure [facility] Work Phone: Medical Equipment Procedure Code Equipment Code Equipment Origin al Text Equipment Identifier Dates Implant System Secondary Fixation W/Bc Swivelock 4.75mm X 19.1mm [id number] Start: 02-19-2022 Clinical Notes 01-21-2022 to 05-15-2022 Dayo Salinas MD - 05/15/2022 2:13 PM Sathya Salinas MD - 04/01/2022 1:13 PM Sathya Salinas MD - 03/04/2022 9:14 AM EDTTelephone Encounter - Shahnaz Watkins Ma - 02/15/2022 2:02 PM EDT Note Date & Type Note Facility 05-15-2022 Note HNO ID: [id number] Author: Dayo Salinas MD Service: ? Author Type: Physician Type: Progress Notes Filed: 05/15/2022 2:17 PM Note Text: Patient presents with: Right Elbow - Post Op Pain: intermittent pain 01/17 right elbow SURGEON Dayo Salinas MD PROCEDURE 02/19/2022 Repair right elbow triceps tendon rupture HISTORY OF PRESENT ILLNESS Manjit Reid presents for post operative follow up nearly 3 months from surgery. The patient is doing quite well. He is pleased with his progress and has regained full motion. He feels as though his strength is near normal. Current Concerns: None Pain control: Well-controlled Currently taking pain medication:No Fever, chills or other signs of infection: Denies PHYSICAL EXAMINATION Right elbow Inspection shows no residual swelling Incision(s) clean, dry, intact No erythema, cellulitis or drainage Incision lines are intact, no drainage noted. Scars are maturing nicely Triceps tendon is palpable, no gap or defect ROM: Elbow flexion, extension, pronation/supination is now symmetric with the contralateral side Sensation:Normal sensation AIN/PIN/ulnar motor intact Brisk cap refill 5/5 elbow extension strength, nonpainful IMAGING No new imaging obtained ASSESSMENT AND PLAN ASSESSMENT/PLAN: 1. Rupture of right triceps tendon, sequela - ICD9: 905.8, ICD10: S46.311S The patient is recovering well and has clinical evidence of healing. He is pleased with the results. We will plan on following up together on an as-needed basis. Dayo Salinas Pt education provided on activity restrictions: None. Patient was instructed to call the office with any questions and/or concerns [facility] 05-15-2022 History of Presen t illness Narrative Patient presents with: Right Elbow - Post Op Pain: intermittent pain 01/17 right elbow SURGEON Dayo Salinas MD PROCEDURE 02/19/2022 Repair right elbow triceps tendon rupture HISTORY OF PRESENT ILLNESS Manjit Reid presents for post operative follow up nearly 3 months from surgery. The patient is doing quite well. He is pleased with his progress and has regained full motion. He feels as though his strength is near normal. Current Concerns: None Pain control: Well-controlled Currently taking pain medication:No Fever, chills or other signs of infection: Denies PHYSICAL EXAMINATION Right elbow Inspection shows no residual swelling Incision(s) clean, dry, intact No erythema, cellulitis or drainage Incision lines are intact, no drainage noted. Scars are maturing nicely Triceps tendon is palpable, no gap or defect ROM: Elbow flexion, extension, pronation/supination is now symmetric with the contralateral side Sensation:Normal sensation AIN/PIN/ulnar motor intact Brisk cap refill 5/5 elbow extension strength, nonpainful IMAGING No new imaging obtained ASSESSMENT AND PLAN ASSESSMENT/PLAN: 1. Rupture of right triceps tendon, sequela - ICD9: 905.8, ICD10: S46.311S The patient is recovering well and has clinical evidence of healing. He is pleased with the results. We will plan on following up together on an as-needed basis. Dayo Salinas Pt education provided on activity restrictions: None. Patient was instructed to call the office with any questions and/or concerns documented in this encounter [facility] 04-01-2022 Note HNO ID: [id number] Author: Dayo Salinas MD Service: ? Author Type: Physician Type: Progress Notes Filed: 04/01/2022 1:17 PM Note Text: Patient presents with: Right Elbow - Post Op Post Op: RT TRICEPS SURGEON Dayo Salinas MD ? PROCEDURE 02/19/2022 Repair right elbow triceps tendon rupture HISTORY OF PRESENT ILLNESS Manjit Reid presents for post operative follow up 6 weeks from surgery. The patient is doing quite well, he has regained the majority of his motion and is now able to reach his face. He reports no pain with day to day activities. He continues with daily exercise under direction of therapy. Current Concerns: None Pain control: Well-controlled Currently taking pain medication:No Fever, chills or other signs of infection: Denies PHYSICAL EXAMINATION Right elbow Inspection shows minimal swelling Incision(s) clean, dry, intact No erythema, cellulitis or drainage Incision lines are intact, no drainage noted. Scars are maturing nicely Triceps insertion is palpable, nontender ROM: Elbow motion 0 to 140 degrees. Full pronation/supination Sensation:Normal sensation AIN/PIN/ulnar motor intact Brisk cap refill IMAGING No new imaging obtained ASSESSMENT AND PLAN ASSESSMENT/PLAN: 1. Rupture of right triceps tendon, sequela - ICD9: 905.8, ICD10: S46.311S The patient has made tremendous progress in his motion. I recommended continuing with his motion and strengthening regimen. Follow-up in 3 months for what will likely be his final formal visit. Dayo Salinas Pt education provided on range of motion exercises. Patient was instructed to call the office with any questions and/or concerns [facility] 04-01-2022 History of Presen t illness Narrative Patient presents with: Right Elbow - Post Op Post Op: RT TRICEPS SURGEON Dayo Salinas MD PROCEDURE 02/19/2022 Repair right elbow triceps tendon rupture HISTORY OF PRESENT ILLNESS Manjit Reid presents for post operative follow up 6 weeks from surgery. The patient is doing quite well, he has regained the majority of his motion and is now able to reach his face. He reports no pain with day to day activities. He continues with daily exercise under direction of therapy. Current Concerns: None Pain control: Well-controlled Currently taking pain medication:No Fever, chills or other signs of infection: Denies PHYSICAL EXAMINATION Right elbow Inspection shows minimal swelling Incision(s) clean, dry, intact No erythema, cellulitis or drainage Incision lines are intact, no drainage noted. Scars are maturing nicely Triceps insertion is palpable, nontender ROM: Elbow motion 0 to 140 degrees. Full pronation/supination Sensation:Normal sensation AIN/PIN/ulnar motor intact Brisk cap refill IMAGING No new imaging obtained ASSESSMENT AND PLAN ASSESSMENT/PLAN: 1. Rupture of right triceps tendon, sequela - ICD9: 905.8, ICD10: S46.311S The patient has made tremendous progress in his motion. I recommended continuing with his motion and strengthening regimen. Follow-up in 3 months for what will likely be his final formal visit. Dayo Salinas Pt education provided on range of motion exercises. Patient was instructed to call the office with any questions and/or concerns documented in this encounter [facility] 03-04-2022 Note HNO ID: [id number] Author: Dayo Salinas MD Service: ? Author Type: Physician Type: Progress Notes Filed: 03/04/2022 9:28 AM Note Text: Patient presents with: Right Arm - Follow Up, Post Op SURGEON Dayo Salinas MD PROCEDURE 02/19/2022 Repair right elbow triceps tendon rupture HISTORY OF PRESENT ILLNESS Manjit Reid presents for post operative follow up 13 days from surgery. The patient is doing well overall. He had less pain than anticipated and reports only having utilized medication for the first day and a half postop. He maintained his postoperative dressings as directed and reports no new issues. No numbness or tingling. Current Concerns: None Pain control: Well-controlled Currently taking pain medication:No Fever, chills or other signs of infection: Denies PHYSICAL EXAMINATION Right elbow Inspection shows minimal swelling Ecchymosis has resolved Incision(s) clean, dry, intact. Steri-Strips in place No erythema, cellulitis or drainage Sutures intact, will resorb. Ends of Monocryl trimmed ROM: 40 degrees of flexion before stiffness prevents further motion Sensation:Normal sensation AIN/PIN/ulnar motor intact Brisk cap refill IMAGING No new imaging obtained ASSESSMENT AND PLAN ASSESSMENT/PLAN: 1. Rupture of right triceps tendon, sequela - ICD9: 905.8, ICD10: S46.311S The patient is recovering well. Given the time course from the injury to repair the stiffness is fully expected and is in fact already improved from his intraoperative motion. We will begin formal physical therapy and the patient wishes to pursue this at a outside location closer to his home. An order was provided as well as contact information if there are any questions or concerns from either the patient or the therapist. We will plan on follow-up in 4 weeks. Dayo Salinas Pt education provided on range of motion exercises. Patient was instructed to call the office with any questions and/or concerns [facility] 03-04-2022 History of Presen t illness Narrative Patient presents with: Right Arm - Follow Up, Post Op SURGEON Dayo Salinas MD PROCEDURE 02/19/2022 Repair right elbow triceps tendon rupture HISTORY OF PRESENT ILLNESS Manjit Reid presents for post operative follow up 13 days from surgery. The patient is doing well overall. He had less pain than anticipated and reports only having utilized medication for the first day and a half postop. He maintained his postoperative dressings as directed and reports no new issues. No numbness or tingling. Current Concerns: None Pain control: Well-controlled Currently taking pain medication:No Fever, chills or other signs of infection: Denies PHYSICAL EXAMINATION Right elbow Inspection shows minimal swelling Ecchymosis has resolved Incision(s) clean, dry, intact. Steri-Strips in place No erythema, cellulitis or drainage Sutures intact, will resorb. Ends of Monocryl trimmed ROM: 40 degrees of flexion before stiffness prevents further motion Sensation:Normal sensation AIN/PIN/ulnar motor intact Brisk cap refill IMAGING No new imaging obtained ASSESSMENT AND PLAN ASSESSMENT/PLAN: 1. Rupture of right triceps tendon, sequela - ICD9: 905.8, ICD10: S46.311S The patient is recovering well. Given the time course from the injury to repair the stiffness is fully expected and is in fact already improved from his intraoperative motion. We will begin formal physical therapy and the patient wishes to pursue this at a outside location closer to his home. An order was provided as well as contact information if there are any questions or concerns from either the patient or the therapist. We will plan on follow-up in 4 weeks. Dayo Salinas Pt education provided on range of motion exercises. Patient was instructed to call the office with any questions and/or concerns documented in this encounter [facility] 02-19-2022 Note HNO ID: [id number] Author: Arielle Eduardo APRN.CRNA Service: Anesthesiology Author Type: Nurse Labor Relations Supervisor Type: Anesthesia Procedure Notes Filed: 02/19/2022 12:25 PM Note Text: ANESTHESIOLOGY PROCEDURE NOTE Airway General Information Procedure Start Time/Medication Administration: 02/19/2022 12:12 PM Patient location during procedure: OR Timeout Performed Pre-procedure: timeout performed Consent Obtained: Yes Patient identity confirmed: arm band Staffing Anesthesiologist: Iglesia Song DO FULL SERVICE SUPERVISOR: Arielle Eduardo APRN.FULL SERVICE SUPERVISOR Performed by: FULL SERVICE SUPERVISOR Indications and Patient Condition Preoxygenated: yes Patient position: sniffing Indications for airway management: anesthesia anesthesia circuit Method: asleep Final Airway Details Final airway type: endotracheal airway Final Endotracheal Airway: ETT Cuffed: yes Successful intubation technique: direct laryngoscopy Endotracheal tube insertion site: oral Blade: Haroon Blade size: #4 ETT size (mm): 7.5 Measured from: lips Measurement (cm): 22 Placement verified by: chest auscultation and capnometry Cormack-Lehane Classification: grade I - full view of glottis Number of attempts at approach: 1 SIGNATURE: Arielle Eduardo APRN.FULL SERVICE SUPERVISOR PATIENT NAME: Manjit Reid DATE: February 19, 2022 TIME: 12:25 PM CSN: [id number] [facility] 02-15-2022 Miscellaneous Notes Patient seen today by Dr. Salinas. I called to schedule appointment. Broadcast Supervisor is telling me that she will have to forward information to the office and they will reach out to the patient. Patient has been informed and will wait for call. I called and spoke with patient. Message from Dr. Rogel given. Patient asked that I call and schedule with Dr. Salinas. He is able to go whenever. ----- Message from Guido Rogel V, DO sent at 02/12/2022 2:07 PM EDT ----- MRI of the elbow showed a complete rupture of the triceps tendon with retraction. I recommend referral for consultation with Dr. Salinas at [facility]. Guido Rogel DO documented in this encounter [facility] 02-15-2022 Note HNO ID: [id number] Author: Dayo Salinas MD Service: ? Author Type: Physician Type: Progress Notes Filed: 02/15/2022 7:55 AM Note Text: Patient presents with: Right Elbow - New, Pain HISTORY OF PRESENT ILLNESS Manjit Reid is a 72 year old male right hand dominant who presents for evaluation of a right elbow triceps tendon rupture. The patient was referred by Dr. Rogel. The patient is here today with his . He sustained the injury in early January while outside with his dog. He sustained a fall and had significant pain and swelling at the right elbow. This had persisted along with significant weakness and he was was evaluated at urgent care. Subsequent work-up including MRI has demonstrated a completely avulsed and retracted triceps tendon. He continues to be rather symptomatic. No numbness or tingling. No prior history of elbow trauma. 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 Diabetes:No ALLERGIES ALLERGIES No Known Allergies PHYSICAL EXAMINATION There were no vitals taken for this visit. There is no height or weight on file to calculate BMI. General Appearance Well appearing, alert, in no acute distress, well-hydrated, well nourished. Alert and oriented times: 3 Normal affect times: 3 Appears stated age and well nourished Gait and station:normal Right Upper Extremity Exam: Inspection of the right elbow shows loss of normal triceps contour with a subtle defect noted There is no residual ecchymosis present Skin: WNL, no wounds or lacerations Large defect palpable, several inches with the proximal stump retracted Tenderness to palpation: Yes ROM: Patient with full elbow flexion. Full extension against gravity only Weakness and pain with any resistance Instability: none Sensation:Normal sensation Atrophy: None Brisk capillary refill REVIEW OF STUDIES X-rays 01/21/2022 3 views of the right elbow show no fracture or dislocation. Alignment within normal limits. Radiocapitellar, ulnohumeral articulations are unremarkable. MRI right elbow 02/12/2022: Distal triceps tendon avulsion with 4.5cm of tendon retraction. No fracture. ASSESSMENT AND PLAN ASSESSMENT/PLAN: 1. Rupture of right triceps tendon, initial encounter - ICD9: 840.8, ICD10: S46.311A I reviewed the imaging with the patient and his and made some diagrams to explain the relevant anatomy. He has a complete rupture and significant retraction and very minimal residual extension likely through anconeus or a few remaining fibers. We reviewed treatment options for this. He remains rather active and this has already caused significant functional impairment. I recommended surgery for distal triceps repair and reviewed its risks, benefits, alternatives and limitations. He consider these and elects to proceed. We reviewed the expected postoperative course and recovery. Given the time course I suspect some difficulty in mobilizing the tendon and I would expect some stiffness postoperatively and will require postoperative physical therapy. All of his questions were answered to his satisfaction. Dayo Salinas Patient educated on treatment options for triceps tendon rupture. Patient instructed to call the office with questions or concerns. [facility] 02-15-2022 History of Presen t illness Narrative Patient presents with: Right Elbow - New, Pain HISTORY OF PRESENT ILLNESS Manjit Reid is a 72 year old male right hand dominant who presents for evaluation of a right elbow triceps tendon rupture. The patient was referred by Dr. Rogel. The patient is here today with his . He sustained the injury in early January while outside with his dog. He sustained a fall and had significant pain and swelling at the right elbow. This had persisted along with significant weakness and he was was evaluated at urgent care. Subsequent work-up including MRI has demonstrated a completely avulsed and retracted triceps tendon. He continues to be rather symptomatic. No numbness or tingling. No prior history of elbow trauma. 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 Diabetes:No ALLERGIES ALLERGIES No Known Allergies PHYSICAL EXAMINATION There were no vitals taken for this visit. There is no height or weight on file to calculate BMI. General Appearance Well appearing, alert, in no acute distress, well-hydrated, well nourished. Alert and oriented times: 3 Normal affect times: 3 Appears stated age and well nourished Gait and station:normal Right Upper Extremity Exam: Inspection of the right elbow shows loss of normal triceps contour with a subtle defect noted There is no residual ecchymosis present Skin: WNL, no wounds or lacerations Large defect palpable, several inches with the proximal stump retracted Tenderness to palpation: Yes ROM: Patient with full elbow flexion. Full extension against gravity only Weakness and pain with any resistance Instability: none Sensation:Normal sensation Atrophy: None Brisk capillary refill REVIEW OF STUDIES X-rays 01/21/2022 3 views of the right elbow show no fracture or dislocation. Alignment within normal limits. Radiocapitellar, ulnohumeral articulations are unremarkable. MRI right elbow 02/12/2022: Distal triceps tendon avulsion with 4.5cm of tendon retraction. No fracture. ASSESSMENT AND PLAN ASSESSMENT/PLAN: 1. Rupture of right triceps tendon, initial encounter - ICD9: 840.8, ICD10: S46.311A I reviewed the imaging with the patient and his and made some diagrams to explain the relevant anatomy. He has a complete rupture and significant retraction and very minimal residual extension likely through anconeus or a few remaining fibers. We reviewed treatment options for this. He remains rather active and this has already caused significant functional impairment. I recommended surgery for distal triceps repair and reviewed its risks, benefits, alternatives and limitations. He consider these and elects to proceed. We reviewed the expected postoperative course and recovery. Given the time course I suspect some difficulty in mobilizing the tendon and I would expect some stiffness postoperatively and will require postoperative physical therapy. All of his questions were answered to his satisfaction. Dayo Salinas Patient educated on treatment options for triceps tendon rupture. Patient instructed to call the office with questions or concerns. documented in this encounter [facility] 02-14-2022 Miscellaneous Notes ----- Message from Cynthia Hair sent at 02/14/2022 9:45 AM EDT ----- Regarding: Orthopedics/Open Elbow: Pain/Unable To Schedule - Dr Salinas Contact: Subject Line Format: Orthopedics / [Provider Name or Open & Body Part ] / [Issue] Patient has been identified by name and Date of (Y/N): y Patient: Manjit Reid Date of : 1950 Previous Provider Seen: n/a Body Part(s) Identified: R elbow Diagnosis/Reason For Visit: patient referred to Dr Salinas by Dr Guido Rogel for R elbow triceps injury. MRI @ [facility]. Sched tool does not list Dr Hussein as possible provider Reason for the call/escalation: see above If reason for call/escalation is discharge from ED/ER or Hospital, which facility was the patient seen at: n/a Was an appointment scheduled (Y/N): n Person calling if other than patient: Shahnaz @ Dr Rogel office Return call to if other than patient: patient Best contact number: [phone] Thank you, Cynthia Reginaldo February 14, 2022 9:46 AM documented in this encounter [facility] 02-12-2022 Note HNO ID: [id number] Author: RT Elia(R) Service: ? Author Type: Technologist Type: Progress Notes Filed: 02/12/2022 11:55 AM Note Text: Radiology Service Progress Note PATIENT NAME: Manjit Reid DATE OF SERVICE: February 12, 2022 TIME: 11:55 AM PATIENT IDENTITY VERIFICATION COMPLETED USING TWO (2) IDENTIFIERS: Name and Date of confirmed by patient verbally. FALL SCREENING: Has the patient had 2 falls in the last year or 1 fall with injury or currently using an Ambulatory Assistive Device (Walker, Cane, Wheelchair, Crutches, etc.)? No PATIENT GENDER DATA: Male PATIENT RELEVANT IMPLANT DATA REVIEWED: Yes RADIOLOGY DEPARTMENT: MR; Exam(s) Completed: Upper MSK: Elbow, right PERIPHERAL IV DATA: Not applicable SIGNED BY: RT Elia(R) February 12, 2022 11:55 AM [facility] 01-25-2022 Note HNO ID: [id number] Author: Guido Rogel V, DO Service: ? Author Type: Physician Type: Progress Notes Filed: 01/25/2022 11:51 AM Note Text: SUBJECTIVE: Manjit Reid is a 72 year old male who is here for a right elbow injury. It occurred over the weekend when he fell on ice landing on outstretched arm. Symptoms include pain, swelling, difficulty with motion of the right elbow. [facility], range of motion exercises. No past medical history on file. No past surgical history on file. Current Outpatient Medications on File Prior to Visit Medication Sig - pravastatin (PRAVACHOL) 20 mg tablet q 24 HR. - amLODIPine (NORVASC) 10 mg tablet amlodipine 10 mg tablet take 1 tablet by mouth once daily - levothyroxine sodium (LEVOTHYROXINE ORAL) Take by mouth. (Patient not taking: Reported on 01/21/2022 ) No current facility-administered medications on file prior to visit. EXAM: General: cooperative and NAD Location: Right elbow: Fading ecchymosis of the skin over the right elbow. There is a palpable defect at the distal aspect of the triceps tendon attachment point to the olecranon. There is pain in this area with palpation as well. Patient has significant disability with elbow extension against resistance. There is no significant range of motion restriction with passive motion testing. Neurovascular: intact X-ray: No acute fractures or subluxations are noted. The radiocapitellar and ulnotrochlear joint spaces are preserved. The obvious osteophyte formation. No fat pad sign to suggest joint effusion. The mineralization of the bones is normal. There is no significant soft tissue swelling. IMPRESSION: Acute right elbow injury, clinical suspicion is high for triceps tendon rupture or partial rupture PLAN: I am ordering an MRI for further evaluation of triceps tendon integrity. Patient Instructions: Continue with range of motion exercises to reduce stiffness. Continue to ice for 15 to 20 minutes 3 times per day. Discussed potential need for surgical referral depending on MRI results. Guido Rogel DO [facility] 01-25-2022 Note HNO ID: [id number] Author: Shahnaz Watkins Ma Service: ? Author Type: ? Type: Progress Notes Filed: 01/25/2022 11:51 AM Note Text: AMB ROOMING INTAKE FLOWSHEET DATA [facility] 01-21-2022 Note HNO ID: [id number] Author: RT Sarah(R) Service: Nuclear Medicine Author Type: Technologist Type: Progress Notes Filed: 01/21/2022 12:34 PM Note Text: Radiology Service Progress Note PATIENT NAME: Manjit Reid DATE OF SERVICE: January 21, 2022 TIME: 12:28 PM PATIENT IDENTITY VERIFICATION COMPLETED USING TWO (2) IDENTIFIERS: Name and Date of confirmed by patient verbally. FALL SCREENING: Has the patient had 2 falls in the last year or 1 fall with injury or currently using an Ambulatory Assistive Device (Walker, Cane, Wheelchair, Crutches, etc.)? No PATIENT GENDER DATA: Male PATIENT RELEVANT IMPLANT DATA REVIEWED: Not Applicable RADIOLOGY DEPARTMENT: General X-ray: Exam(s) Completed: Upper Extremity X-Ray(s): Elbow, right PERIPHERAL IV DATA: Not applicable SIGNED BY: RT Sarah(R) January 21, 2022 12:28 PM [facility] 01-21-2022 Note HNO ID: [id number] Author: Dino Ashley APRN.[facility] Service: ? Author Type: Nurse Practitioner Type: Progress Notes Filed: 01/21/2022 1:04 PM Note Text: Subjective HPI HPI Manjit Reid is a 71 year old male who presents today for CC of right elbow injury. This started 2 weeks ago. Has tried otc medication for relief. Symptoms are worsened by rom of elbow/touching area. Denies history of surgery or injury to right elbow. Denies numbness/tingling of right arm. .Patient presents with: Elbow Injury: fell on R elbow x2 weeks No past medical history on file. No past surgical history on file. ALLERGIES Patient has no known allergies. MEDICATIONS pravastatin (PRAVACHOL) 20 mg tablet q 24 HR. amLODIPine (NORVASC) 10 mg tablet amlodipine 10 mg tablet take 1 tablet by mouth once daily levothyroxine sodium (LEVOTHYROXINE ORAL) Take by mouth. No family history on file. Social History Tobacco Use - Smoking status: Never Smoker - Smokeless tobacco: Never Used Substance Use Topics - Alcohol use: Not on file - Drug use: Not on file ROS Objective Blood pressure 108/72, pulse 76, temperature (!) 35.8 ?C (96.5 ?F), resp. rate 18, weight 72.9 kg (160 lb 12.8 oz), SpO2 99 %. Physical Exam Constitutional: General: He is not in acute distress. Appearance: He is not toxic-appearing or diaphoretic. HENT: Head: Normocephalic and atraumatic. Cardiovascular: Pulses: Radial pulses are 2+ on the right side. Pulmonary: Effort: Pulmonary effort is normal. No accessory muscle usage or respiratory distress. Musculoskeletal: Right elbow: Swelling present. No deformity, effusion or lacerations. Normal range of motion. Tenderness present. Arms: Neurological: Mental Status: He is alert and oriented to person, place, and time. ASSESSMENT/PLAN: 1. Elbow injury, right, initial encounter - ICD9: 959.3, ICD10: S59.901A Unclear what mobile nodule is possibly hematoma vs muscle tear -no bony abnormality noted on xray -Rest, Ice, Compression, Elevation discussed -will refer to ortho d/t non improving pain after 2 weeks and abnormal exam. - XR ELBOW SPECIAL VIEWS AP/LAT/OTHER RIGHT IMPRESSION IMPRESSION: No acute radiographic abnormalities seen in the right elbow. ? Dictated by : DANIELLE DAVIS MD - CONSULT TO ORTHOPAEDICS Agrees to plan Dino Ashley APRN.[facility] Diagnosis Rupture of right triceps tendon, sequela- Primary [facility] Diagnosis Rupture of right triceps tendon, sequela- Primary documented in this encounter [facility] Summary Purpose Family History No Family History Records FoundNo Family History Records FoundNo Family History Records FoundNo Family History Records Found Advance Directives No Advanced Directives Records FoundDocuments on File Type Date 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 Advance Directive(s) 02/19/2022 10:12 AM Additional Source Comments (unrecognized sect ion and content) No Status Records FoundNo Status Records FoundNo Status Records FoundNo Status Records Found INFORMATION SOURCE (unrecogn ized section and content) DATE CREATED AUTHOR AUTHOR'S ORGANIZ ATION 02/17/2022 [facility] DATE CREATED AUTHOR AUTHOR'S ORGANIZ ATION 02/18/2022 [facility] DATE CREATED AUTHOR AUTHOR'S ORGANIZ ATION 05/16/2022 [facility] Source Comments (unrecognize d section and content) In the event this informatio n is protected by the Federal Confidentiality of Alcohol and Drug Abuse Patient Records regulations: The Federal rules restrict any use of the information to criminally investigate or prosecute any alcohol or drug abuse patient.[facility] the event this information is protected by the Federal Confidentiality of Alcohol and Drug Abuse Patient Records regulations: The Federal rules restrict any use of the information to criminally investigate or prosecute any alcohol or drug abuse patient.[facility] the event this information is protected by the Federal Confidentiality of Alcohol and Drug Abuse Patient Records regulations: The Federal rules restrict any use of the information to criminally investigate or prosecute any alcohol or drug abuse patient.[facility] the event this information is protected by the Federal Confidentiality of Alcohol and Drug Abuse Patient Records regulations: The Federal rules restrict any use of the information to criminally investigate or prosecute any alcohol or drug abuse patient.[facility] the event this information is protected by the Federal Confidentiality of Alcohol and Drug Abuse Patient Records regulations: The Federal rules restrict any use of the information to criminally investigate or prosecute any alcohol or drug abuse patient.[facility] the event this information is protected by the Federal Confidentiality of Alcohol and Drug Abuse Patient Records regulations: The Federal rules restrict any use of the information to criminally investigate or prosecute any alcohol or drug abuse patient.[facility] Reason for Visit (unrecogniz ed section and content) Reason Comments New Pain Reason Comments Results Reason Comments Follow Up Post Op Reason Comments Post Op RT TRICEPS Post Op Reason Comments Pain intermittent pain 3/ 10 right elbow Post Op FOR RECORDS PERTAINING TO PATIENTS WHO ARE OR HAVE BEEN ENROLLED IN A CHEMICAL DEPENDENCY/SUBSTANCEABUSE PROGRAM, SOME INFORMATION MAY BE OMITTED. This clinical summary was aggregated from multiple sources. Caution should be exercised in using it in the provision of clinical care. This summary normalizes information from multiple sources, and as a consequence, information in this document may materially change the coding, format and clinical context of patient data. In addition, data may be omitted in some cases. CLINICAL DECISIONS SHOULD BE BASED ON THE PRIMARY CLINICAL RECORDS. [facility]. provides no warranty or guarantee of the accuracy or completeness of information in this document.
== END | disposition home or self-care (01) ==
LOC: LAB 10:11
PROVIDERS: PCP Family Medicine; Referring Provider Urology; Visit Provider Urology
DX: Z12.5 Encounter for screening for malignant neoplasm of prostate (principal)
CPT/HCPCS: 36415; 84153; G0103

== ENCOUNTER 2024-01-21 11:37 | Emergency (ER) | payer MEDICARE, SELFPAY ==
[2024-01-21 11:39] VITALS: BP 144/82; PULSE 64; RESP 14; TEMP 36.6; O2SAT 98; BMI 23.5
--- NOTE | 2024-01-21 11:58 | EKG12_ITS ---
Test Reason : CHEST DISCOMFORT Blood Pressure : / mmHG Vent. Rate : 061 BPM Atrial Rate : 061 BPM P-R Int : 208 ms QRS Dur : 096 ms QT Int : 400 ms P-R-T Axes : 034 -04 045 degrees QTc Int : 402 ms Normal sinus rhythm Normal ECG Confirmed by Minor Butcher ([id number]), index editor SHALINI LEMOS ([id number]) on 01/23/2024 2:04:17 PM Referred By: CM Confirmed By:Minor Butcher
--- NOTE | 2024-01-21 11:59 | ED.VIS.CHEST ---
HPI History of Present Illness Chief Complaint: Chest Other Detail of Chief Complaint: Chest discomfort Informant: patient Narrative Narrative: Patient presents to the emergency department complaint of chest discomfort. Patient tells me he was eating cereal with milk and when he swallowed started having a burning painful sensation from the lower neck all the way down towards his epigastric abdominal area. Patient then felt nauseated and felt like cereal wanted to either come up or go down. He is never had discomfort like this before. He had no vomiting. Symptoms have improved since they initially began. He denies shortness of breath. No history of peptic ulcer disease but used to have history of GERD. Denies recent illness. [facility] Medical History (Updated 01/21/24 @ 15:[address] Rose Briones, DO) Enlarged prostate Stage 3 chronic kidney disease Home Medications amlodipine 10 mg tablet 10 mg PO DAILY #90 tabs 01/04/20 [Rx Last Taken Unknown] phenylephrine 0.25 %-pramoxine 1 %-glycerin-wh.petrolatum rectal cream (Preparation H Maximum Strength) 1 applic NM BID #26 grams 03/05/22 [Rx Last Taken Unknown] dapagliflozin propanediol 10 mg tablet (Farxiga) 10 mg PO DAILY 01/21/24 [History Last Taken Unknown] omeprazole 20 mg capsule,delayed release 20 mg PO BID #30 caps 01/21/24 [Rx Last Taken Unknown] pravastatin 20 mg tablet 20 mg PO QPM 01/21/24 [History Last Taken Unknown] Allergy/AdvReac Type Severity Reaction Status Date / Time No Known Allergies Allergy Verified 01/21/24 11:39 Family History Mother Heart disease Father Cancer Surgical History History of cholecystectomy History of prostate surgery Social History Smoking Status: Former smoker ROS ROS ED Review of Systems ROS Unobtainable: other Constitutional Constitutional ED: Reports lethargy; Denies chills, fever(s), sweats or weight loss Eyes Eyes: Denies blurry vision, change in vision or diplopia ENT ENT ED: Denies rhinorrhea or sore throat Cardiovascular Cardiovascular: Reports chest pain; Denies orthopnea or racing heartbeat Respiratory/Chest Respiratory/Chest: Denies cough, dyspnea, dyspnea on exertion, orthopnea or sputum Gastrointestinal Gastrointestinal: Reports nausea; Denies abdominal pain, diarrhea or vomiting Genitourinary Genitourinary ED: Denies dysuria, hematuria or urinary frequency Musculoskeletal Musculoskeletal: Denies arthralgias, back pain, myalgias or neck pain Integumentary Denies abscess, Abrasions or rash Neurologic Neurologic: Denies headache(s) or weakness Psychiatric Psychiatric: Denies anxiety, depression or suicidal thoughts Endocrine Endocrinology: Denies polydipsia, polyphagia or polyuria Hematologic/Lymphatic Hematologic/Lymphatic: Denies easy bleeding, easy bruising or lymphadenopathy Allergic/Immunologic Allergic/Immunologic ED: Denies mouth swelling, tongue swelling or urticaria EXAM Physical Exam Const Vital Signs: 01/21/24 11:39 01/21/24 11:44 01/21/24 13:30 Temperature 97.8 F Temperature Source Oral Pulse Rate 64 67 Respiratory Rate 14 18 Respiratory Effort Normal Non-Labored Blood Pressure 144/82 H 121/86 H Blood Pressure Mean 102 99 Pulse Ox 98 Oxygen Delivery Method Room Air 01/21/24 14:00 Temperature Temperature Source Pulse Rate 64 Respiratory Rate 10 L Respiratory Effort Blood Pressure 124/79 H Blood Pressure Mean 93 Pulse Ox 97 Oxygen Delivery Method Positive well nourished and well developed General Appearance ED: well developed and NAD HEENT Reports TM's clear and moist mucous membranes normocephalic and atraumatic; Negative for trauma or tenderness Tympanic Membrane ED: Yes TM's clear Eyes PERRL and EOMs intact bilaterally General Eye ED: Negative for pale conjunctiva or scleral icterus Neck no lymphadenopathy, supple and no JVD General: Negative for tenderness Chest Wall inspection of chest normal and palpation of chest normal Chest: Negative for tenderness Resp normal respiratory effort and clear to auscultation bilaterally Effort and Inspection: Negative for respiratory distress or pain with movement Auscultation: Negative for rhonchi, wheezes or diminished lung sounds Cardio regular rate, regular rhythm, S1 normal heart sound, S2 normal heart sound and no murmurs Peripheral Pulses: pulses 2+ throughout GI normal to inspection, nondistended, normoactive bowel sounds, soft to palpation, non-tender, non-distended and no masses Back/Spine no CVA tenderness and no thoracic nor lumbar tenderness Extremity normal to inspection General Extremety ED: Negative for edema General Extremity: Negative for edema Neuro oriented x3, CN's II-XII intact bilaterally, no sensory deficits noted and gait normal Sensorium / Orientation: awake, alert, oriented to person, oriented to place and oriented to time Motor Exam: strength 5/5 throughout and strength abnormal Psych mental status grossly normal Skin no rashes or lesions noted and no wounds MDM MDM MDM Narrative Medical decision making narrative: Patient presents with painful swallowing and while eating. Patient states his symptoms have improved. I did give him a GI cocktail which seemed to help. I did do a chest x-ray that showed some hyperinflation but the lungs were clear. Patient had a large hiatal hernia noted. Discussed results with patient. He is aware that he has a hiatal hernia as he has had scopes years ago with a Dr. Simpson who no longer practices. I did discuss case with GI on-call Dr. Sellers who recommended starting patient on omeprazole twice a day and follow-up with his office. Patient was able to tolerate a p.o. challenge and is able to swallow and essentially feels back to baseline. I did do an EKG on arrival that showed a sinus rhythm with rate of 61 bpm with no acute ST segment changes. Radiography Diagnostic Testing: Clinical Impression(s) from Imaging Studies Chest X-Ray 01/21/24 12:10 IMPRESSION: Hyperinflation. The lungs are clear. Large hiatal hernia. Electronically Signed: Baldemar Sanchez MD at 12:45 EDT Reading Location ID and State: [facility] / [place] , Service support , 1 view chest x-ray shows a hiatal hernia with air-fluid level in the chest. No lung abnormality noted on my interpretation. Radiology in agreement. EKG Initial EKG: Attestation: I personally reviewed and interpreted this EKG as follows: Comments: Sinus rhythm with rate of 61 bpm with no acute ST segment changes Discharge Plan Triage Chief Complaint: Chest Other ED Provider: Rose Briones Dx/Rx/DC Orders Clinical Impression: Odynophagia, Hernia, hiatal Instructions: What Is a Hiatal Hernia?, ED Hiatal Hernia Prescriptions: New omeprazole 20 mg capsule,delayed release(DR/EC) 20 mg PO BID Qty: 30 0RF No Action amlodipine 10 MG tablet 10 mg PO DAILY Qty: 90 0RF Preparation H Maximum Strength 0.25-1 % cream 1 applic NM BID Qty: 26 0RF pravastatin 20 mg tablet 20 mg PO QPM dapagliflozin propanediol [Farxiga] 10 mg tablet 10 mg PO DAILY Primary Care Provider: Aury Owens Referrals: Aury Owens MD [Primary Care Provider] - Friend,DO Tho [Med Staff - Active Staff] - 3-5 Days Disposition Disposition: Home, Self Care
--- NOTE | 2024-01-21 12:10 | RAD_ITS ---
STUDY: X-RAY CHEST REASON FOR EXAM: Male, 73 years old. Chest pain TECHNIQUE: PA and lateral views of the chest. COMPARISON: Comparison is made with prior study dated February 25, 2017. FINDINGS: EKG electrodes are seen. There is hyperinflation of the lungs consistent with chronic obstructive lung disease (COPD). There is no demonstrated pleural abnormality. Normal size heart. Normal mediastinum and juan. Normal visualized pulmonary arteries. Normal visualized aortic arch and descending thoracic aorta. There are degenerative changes of the visualized thoracic spine. Normal visualized ribs, clavicles, and shoulders. Large hiatal hernia. RAD/Chest PA and Lateral IMPRESSION: Hyperinflation. The lungs are clear. Large hiatal hernia. Electronically Signed: Baldemar Sanchez MD at 12:45 EDT ,
[2024-01-21] MEDS: Mag Hydrox/Al Hydrox/Simeth 30 ML UDC PO (12:21)
[2024-01-21 13:30] VITALS: BP 121/86; PULSE 67; RESP 18
[2024-01-21 14:00] VITALS: BP 124/79; PULSE 64; RESP 10; O2SAT 97
[2024-01-21 15:38] VITALS: BP 124/79; PULSE 64; RESP 10; TEMP 36.6; O2SAT 97
== END 2024-01-21 15:39 | disposition home or self-care (01) ==
PROVIDERS: Emergency Provider Emergency Medicine; PCP Family Medicine; Visit Provider Emergency Medicine
DX: K44.9 Diaphragmatic hernia without obstruction or gangrene (principal); N18.30 Chronic kidney disease, stage 3 unspecified; Z87.891 Personal history of nicotine dependence
CPT/HCPCS: 71046; 93005; 99283

== ENCOUNTER 2024-02-26 06:35 | Day surgery (SDC) | payer MEDICARE, SELFPAY ==
[2024-02-26 06:55] VITALS: BP 118/69; PULSE 57; RESP 16; TEMP 36.6; O2SAT 100; BMI 24.1
[2024-02-26] MEDS: Lactated Ringers 1,000 ML 15 ML IV (06:55)
--- NOTE | 2024-02-26 07:45 | EGD_PTH ---
PATIENT: LAURY SWIFT LOC: EN U#:[id number] AGE/SX: 74/M ROOM: RE02/26/[address]: Dr. Tho Sellers DO : 1950 BED: DIS: 02/26/2024 SPEC #: [id number] RECD: 02/26/24 09:42 STATUS: JESUS CLEMENTS #: [id number] VENTURA: 02/26/24 07:[address]: Tho Sellers DEPT: SURGICAL PATHOLOGY RECD BY: Jennyfer Morillo ENTERED: 02/26/24 11:14 SP TYPE: EGD BIOPSY SHANT DR: Dr. Aury Owens MD Tissues: Esophagus, NOS Procedures: Special Stain Group II Surgery Specimen Level IV Alcian Blue/PAS (control) HEADER OPERATION: EGD PRE-OP DIAGNOSIS: GERD TISSUE SUBMITTED: Distal esophagus biopsy MICROSCOPIC DIAGNOSIS Distal esophagus, biopsy: Gastroesophageal junctional mucosa with mild chronic inflammation. No evidence of goblet cell metaplasia. See comment. AM/ 02/27/2024 COMMENT Alcian blue/PAS stain with matched control supports the above diagnosis. MICROSCOPIC DESCRIPTION Slides are reviewed. GROSS DESCRIPTION Received in fixative is one container labeled with the patient's name and designated Distal esophagus biopsy. The specimen consists of multiple irregular fragments of light ulloa soft tissue that in aggregate measure 2.0 x 0.3 x 0.1 cm. The specimen is totally submitted in one cassette. EDUARD/ 02/26/2024 TC:3 CPT:44811,49582
--- NOTE | 2024-02-26 08:18 | HP.PCM_ITS ---
History and Physical Date of Admission: 02/26/24 Chief Complaint: Rhabdomyolysis Details: LAURY SWIFT, is a 74 M who presents to the office today for initial consult. [facility] established 02.13.24 for dysphagia. PMH includes hyperthyroid, BPH, HLD, GERD, and CRF stage 3. [facility] ER 01.21.24 for chest pain after eating cereal. Large hiatal hernia. Rx Omeprazole 20mg BID. Ov .04.02- Pt states hx of GERD with known hiatal hernia. Has taken meds in the past. Is not having any issues now. States he has not had anymore swallowing episodes since ER. Has occasional constipation. ROS Const Constitutional: No fatigue ENT ENT: No difficulty swallowing Gastro GI: Positive for constipation and heartburn; No abdominal pain, belching, bloating, change in bowel habits, change in stool character, coffee ground emesis, cramping, diarrhea, difficulty swallowing, feeling full early, excessive flatus, incontinent of stools, Vomiting blood/hematemesis, Blood in stool, loose stools, Black,tarry stools, nausea/dyspepsia, pain with swallowing, vomiting or other Musc Musculoskeletal: No joint pain Skin Skin: No yellowing of the eye or itchy eyes Psych Psychiatric: No anxiety and No depression Endo Endocrine: No fatigue Aller/Imm Allergy/Immunologic: No itchy eyes Emile/Lymp Hematologic/Lymphatic: No easy bleeding or easy bruising Exam Const General: cooperative and comfortable Nutritional Appearance: average body habitus and well nourished HENCO Head: normal to inspection Ears: hearing grossly normal bilaterally Nose: external nose normal Face and sinus: normal facial exam Mouth: oral mucosae normal Throat: posterior oropharynx normal Eyes General: appearance normal, both eyes and all related structures Neck Neck: normal visual inspection Chest Chest palpation & inspection: normal inspection of the chest and normal palpation of entire chest wall Resp Effort & Inspection: normal respiratory effort Auscultation: Bilateral: Clear to Auscultation Cardio Palpation: normal PMI Rate: regular rate Rhythm: regular rhythm GI Inspection: normal to inspection Auscultation: normal bowel sounds Percussion: normal to percussion Palpation: no hepatosplenomegaly Skin General: no rashes or lesions noted Neuro General: patient alert Extrem General: normal to inspection Psych Affect: normal affect Quality Reporting Tobacco Screening ([facility] 138) Smoking Status: Former smoker Assessment and Plan Assessment and Plan (1) GERD (gastroesophageal reflux disease): Status: Acute (2) Hernia, hiatal: Status: Inactive Plan: Patient presented to the emergency department complaint of chest discomfort. Patient tells me he was eating cereal with milk and when he swallowed started having a burning painful sensation from the lower neck all the way down towards his epigastric abdominal area. Patient then felt nauseated and felt like cereal wanted to either come up or go down. He is never had discomfort like this before. He had no vomiting. Symptoms have improved since they initially began. He denies shortness of breath. No history of peptic ulcer disease but used to have history of GERD. Denies recent illness. He underwent a chest x-ray and it did show a large hiatal hernia. Apparently he underwent an upper endoscopy several years ago by a local digital sales planner and he was told that he had a large hiatal hernia and was placed on proton pump inhibitors for several years with good control of his reflux disease. He stopped the proton pump inhibitors and has been on a supplement for excess acid production. He does not want to take any prescription medicines at this time for reflux disease. He was given a short course of pantoprazole to take after he went to the emergency room and it really helped his symptoms and now he is back on his [id number] supplement. Recommendation: -Repeat upper endoscopy to evaluate his upper GI tract. Since his symptoms have subsided somewhat we will not start him back on PPI therapy because he just stopped it approximately 5 days ago. Once we perform an upper endoscopy however better evaluation regarding his upper GI tract anatomy and why it might be contributing to his symptoms of reflux disease and intermittent esophageal dysphagia. I have examined the patient and the H&P has been reviewed. There are no clinical changes since date of exam.
[2024-02-26 08:37] VITALS: BP 106/71; BP 118/69; PULSE 62; RESP 18; TEMP 36.3; O2SAT 94
--- NOTE | 2024-02-26 08:38 | OP.EGD_ITS ---
Patient Name: Manjit Reid Procedure Date: 02/26/2024 8:13 AM Date of : 1950 Age: 74 Procedure: Upper GI endoscopy Indications: Esophageal reflux Providers: Tho Sellers DO Medicines: Monitored Anesthesia Care Patient Profile: This is a 74 year old male. Refer to note in patient chart for documentation of history and physical. Complications: No immediate complications. Procedure: Pre-Anesthesia Assessment: - Prior to the procedure, a History and Physical was performed, and patient medications and allergies were reviewed. The patient is competent. The risks and benefits of the procedure and the sedation options and risks were discussed with the patient. All questions were answered and informed consent was obtained. Patient identification and proposed procedure were verified by the physician in the pre-procedure area. Mental Status Examination: alert and oriented. Prophylactic Antibiotics: The patient does not require prophylactic antibiotics. Prior Anticoagulants: The patient has taken no anticoagulant or antiplatelet agents. After reviewing the risks and benefits, the patient was deemed in satisfactory condition to undergo the procedure. The anesthesia plan was to use monitored anesthesia care (MAC). Immediately prior to administration of medications, the patient was re-assessed for adequacy to receive sedatives. The heart rate, respiratory rate, oxygen saturations, blood pressure, adequacy of pulmonary ventilation, and response to care were monitored throughout the procedure. The physical status of the patient was re-assessed after the procedure. After obtaining informed consent, the endoscope was passed under direct vision. Throughout the procedure, the patient's blood pressure, pulse, and oxygen saturations were monitored continuously. The gastroscope was introduced through the mouth, and advanced to the second part of duodenum. The upper GI endoscopy was accomplished without difficulty. The patient tolerated the procedure well. Moderate Sedation: Moderate (conscious) sedation was personally administered by an anesthesia professional. The following parameters were monitored: oxygen saturation, heart rate, blood pressure, respiratory rate, EKG, adequacy of pulmonary ventilation, and response to care. Scope In: 8:23:19 AM Scope Out: 8:30:58 AM Total Procedure Duration Time 0 hours 7 minutes 39 seconds Findings: LA Grade B (one or more mucosal breaks greater than 5 mm, not extending between the tops of two mucosal folds) esophagitis with no bleeding was found 34 to 39 cm from the incisors. Biopsies were taken with a cold forceps for histology. Verification of patient identification for the specimen was done. Estimated blood loss was minimal. Mucosa was biopsied with a cold forceps for histology in a targeted manner at intervals of 1 cm in the lower third of the esophagus. One specimen bottle was sent to pathology. Verification of patient identification for the specimen was done. Estimated blood loss was minimal. A large hiatal hernia was present. A few localized 5 mm erosions with no bleeding and no stigmata of recent bleeding were found in the gastric body. No gross lesions were noted in the second portion of the duodenum. Impression: - LA Grade B reflux esophagitis with no bleeding. Biopsied. - Large hiatal hernia. - Erosive gastropathy with no bleeding and no stigmata of recent bleeding. - No gross lesions in the second portion of the duodenum. Recommendation: - Discharge patient to home. - Resume previous diet. - Continue present medications. - Await pathology results. - Refer to a surgeon. Procedure Code(s): --- Professional --- 13630, Esophagogastroduodenoscopy, flexible, transoral; with biopsy, single or multiple CPT copyright 2021 [employer]. All rights reserved. The codes documented in this report are preliminary and upon aviation ordnance officer review may be revised to meet current compliance requirements. Tho Sellers DO 02/26/2024 8:38:30 AM This report has been signed electronically. Number of Addenda: 0 Note Initiated On: 02/26/2024 8:13 AM
--- NOTE | 2024-02-26 08:39 | OP.CCLET_ITS ---
02/26/2024 Aury Owens [address] [place] [address] Re : Upper GI endoscopy procedure for Manjit Redi Dear Dr. Owens This procedure was performed on February. My impressions and recommendations are as follows: Impressions : - LA Grade B reflux esophagitis with no bleeding. Biopsied. - Large hiatal hernia. - Erosive gastropathy with no bleeding and no stigmata of recent bleeding. - No gross lesions in the second portion of the duodenum. Recommendations : - Discharge patient to home. - Resume previous diet. - Continue present medications. - Await pathology results. - Refer to a surgeon. My findings are described in the full procedure note, which is enclosed. If I can be of further assistance, please feel free to contact me at . Sincerely, Tho Sellers, 02/26/2024 8:38:30 AM This report has been signed electronically.
[2024-02-26 08:40] VITALS: BP 108/70; BP 118/69; PULSE 61; RESP 18; O2SAT 93
[2024-02-26 08:45] VITALS: BP 104/72; BP 118/69; PULSE 62; RESP 18; O2SAT 97
[2024-02-26 08:53] VITALS: BP 116/76; BP 118/69; PULSE 61; RESP 18; TEMP 36.6; O2SAT 96
[2024-02-26 09:11] VITALS: BP 118/69
== END 2024-02-26 09:32 | disposition home or self-care (01) ==
LOC: EN 06:35 → AC 06:36
PROVIDERS: PCP Family Medicine; Referring Provider Family Medicine; Visit Provider Internal Medicine Gastroenterology
PROC: 0DJ08ZZ Inspection of Upper Intestinal Tract, Via Natural or Artificial Opening Endoscopic (ICD-10-PCS; CPT 43235; principal; 2024-02-26 07:40)
DX: K44.9 Diaphragmatic hernia without obstruction or gangrene (principal); N18.30 Chronic kidney disease, stage 3 unspecified; K21.00 Gastro-esophageal reflux disease with esophagitis, without bleeding; R13.10 Dysphagia, unspecified; E78.00 Pure hypercholesterolemia, unspecified; Z79.899 Other long term (current) drug therapy; Z87.891 Personal history of nicotine dependence
CPT/HCPCS: 43239; 88305; 88313; J7120; J2405

== ENCOUNTER 2024-03-26 07:25 | Day surgery (SDC) | payer MEDICARE, SELFPAY ==
[2024-03-26] MEDS: Lidocaine Jelly 2% 20 ML Syringe (URO-JET) 1 APPLIC (07:40)
[2024-03-26 07:45] VITALS: BP 133/85; PULSE 56; RESP 16; O2SAT 100
== END 2024-03-26 23:59 | disposition home or self-care (01) ==
LOC: EN 07:25
PROVIDERS: PCP Family Medicine; Referring Provider Family Medicine; Visit Provider Internal Medicine Gastroenterology
PROC: F00ZJWZ Instrumental Swallowing and Oral Function Assessment using Swallowing Equipment (ICD-10-PCS; CPT 43235; principal; 2024-03-26 07:25)
DX: K44.9 Diaphragmatic hernia without obstruction or gangrene (principal)
CPT/HCPCS: 91010

== ENCOUNTER → 2024-06-07 | Outpatient (CLI) | payer MEDICARE, SELFPAY ==
[2024-06-07 13:16] LABS: ALB/GLOB Ratio 1.1 RATIO (0.9-2.4); AST(SGOT) 10 U/L (15-37); Alanine Aminotransfer ALT/SGPT 16 U/L (16-61); Albumin, Serum 3.5 g/dL (3.2-5.0); Alkaline Phosphatase 78 U/L (45-117); Anion Gap 4 (5-15); BUN 25 mg/dL (7-18); BUN/Creat Ratio 16.4 RATIO (10-20); Calcium,Total 8.7 mg/dL (8.5-10.1); Chloride 111 mmol/L (98-107); Creatinine, Serum 1.52 mg/dL (0.70-1.30); EST Glomerular Filtration Rate 48 mL/min (>60); Est Glom Filt Rate - Afr Amer 58 mL/min (>60); Globulin 3.3 g/dL (2.2-4.2); Glucose 94 mg/dL (74-106); Potassium 4.1 mmol/L (3.5-5.1); Protein, Total 6.8 g/dL (6.4-8.2); Sodium Level 139 mmol/L (136-145)
== END | disposition home or self-care (01) ==
LOC: LAB 12:27
PROVIDERS: PCP Family Medicine; Referring Provider Internal Medicine Nephrology; Visit Provider Internal Medicine Nephrology
DX: N18.31 Chronic kidney disease, stage 3a (principal)
CPT/HCPCS: 36415; 80053

== ENCOUNTER 2024-12-06 11:39 | Emergency (ER) | payer MEDICARE, SELFPAY ==
[2024-12-06 11:39] VITALS: BP 146/89; PULSE 62; RESP 16; TEMP 36.2; O2SAT 100; BMI 24.4
--- NOTE | 2024-12-06 14:04 | RAD_ITS ---
STUDY: X-RAY CHEST REASON FOR EXAM: Male, 74 years old. Stroke TECHNIQUE: Single AP portable view of the chest. COMPARISON: Comparison is made with prior study January 21, 2024. FINDINGS: There is hyperinflation of the lungs consistent with chronic obstructive lung disease (COPD). There is no demonstrated pleural abnormality. Normal size heart. Normal mediastinum and juan. Normal visualized pulmonary arteries. Normal visualized aortic arch and descending thoracic aorta. Normal visualized thoracic spine. Normal visualized ribs, clavicles, and shoulders. Large hiatal hernia. RAD/Chest 1 View (Portable) IMPRESSION: Large hiatal hernia. Hyperinflation. Electronically Signed: Baldemar Sanchez MD at 14:35 EST ,
--- NOTE | 2024-12-06 14:04 | EKG12_ITS ---
Test Reason : DIZZY Blood Pressure : */* mmHG Vent. Rate : 58 BPM Atrial Rate : 58 BPM P-R Int : 206 ms QRS Dur : 90 ms QT Int : 398 ms P-R-T Axes : 49 62 50 degrees QTcB Int : 390 ms Sinus bradycardia Otherwise normal ECG Confirmed by TAMI NEGRON, ELIA ([id number]), assistant editor CHUNG ADHIKARI ([id number]) on 12/08/2024 6:25:54 AM Referred By: Confirmed By: ELIA AGRRETT MD
[2024-12-06 14:24] LABS: Absolute Lymphocyte Count 1.52 X10^3/uL (0.83-4.51); Absolute Neutrophil Count 4.4 X10^3/uL (2.0-7.7); Basophil# 0.06 X10^3/uL; Basophil% 0.9 % (0-1); Eosinophil# 0.02 X10^3/uL; Eosinophils% 0.3 % (0-5); Hematocrit 49.8 % (40-54); Hemoglobin 16.8 g/dL (13.0-16.5); Lymphocyte # 1.52 X10^3/ul (0.83-4.51); Lymphocyte % 23.7 % (19-41); Mean Corp Hgb Conc 33.7 g/dL (32-36); Mean Corpuscular Hgb 31.6 pg (27.0-32.0); Mean Corpuscular Volume 93.6 fL (80-94); Mean Platelet Vol. 9.6 fl (6.2-12.0); Monocyte# 0.36 X10^3/uL; Monocyte% 5.6 % (0-10); NRBC Flagged by Analyzer 0 % (0-5); Neutrophil # 4.44 X10^3/uL (2.7-7.7); Neutrophil % 69.2 % (47-70); Platelet Count 238 K/mm3 (150-450); RBC Distribution Width CV 13.2 % (11.6-14.6); RBC Distribution Width SD 45.4 fl (35.1-43.9); Red Blood Count 5.32 M/mm3 (4.6-6.2); White Blood Count 6.4 K/mm3 (4.4-11.0)
[2024-12-06 14:38] LABS: International Normalized Ratio 1.1; Partial Thromboplast Time 25.8 Seconds (24.1-36.2)
[2024-12-06 14:39] LABS: Anion Gap 4 (5-15); BUN 26 mg/dL (7-18); BUN/Creat Ratio 16.1 RATIO (10-20); Chloride 112 mmol/L (98-107); Creatinine, Serum 1.61 mg/dL (0.70-1.30); EST Glomerular Filtration Rate 45 mL/min (>60); Est Glom Filt Rate - Afr Amer 54 mL/min (>60); Estimated Creatinine Clearance 37.63 ml/min; Glucose 145 mg/dL (74-106); Sodium Level 140 mmol/L (136-145)
[2024-12-06 14:50] VITALS: BP 126/80; PULSE 67; O2SAT 99
--- NOTE | 2024-12-06 15:03 | EX.ED.DYSGE1 ---
HPI History of Present Illness Chief Complaint: Dizziness PFSH PFS Medical History Wears glasses High cholesterol Gastric reflux Non-smoker History of hiatal hernia Stage 3 chronic kidney disease Home Medications ?Medication ?Instructions ?Recorded ?Last Taken ?Type amlodipine 10 mg tablet 10 mg PO DAILY #90 tabs 01/04/20 02/25/24 Rx dapagliflozin propanediol 10 mg 10 mg PO DAILY 01/21/24 02/25/24 History tablet (Farxiga) pravastatin 20 mg tablet 20 mg PO QPM 01/21/24 02/25/24 History famotidine 40 mg tablet 40 mg PO BID #60 tabs 05/10/24 Unknown Rx meclizine 25 mg tablet 25 mg PO TID PRN dizziness #30 tabs 12/06/24 Unknown Rx Allergy/AdvReac Type Severity Reaction Status Date / Time No Known Allergies Allergy Verified 08/23/24 15:25 Family History Mother Heart disease Hypertension HLD (hyperlipidemia) Father Cancer Brother Heart disease HLD (hyperlipidemia) Surgical History History of esophagogastroduodenoscopy (EGD) Hx of colonoscopy History of prostate surgery History of cholecystectomy Social History Smoking Status: Never smoker alcohol intake: never EXAM Physical Exam Const Vital Signs: 12/06/24 11:39 12/06/24 14:50 12/06/24 15:40 Temperature 97.2 F L Temperature Source Oral Pulse Rate 62 67 Respiratory Rate 16 Blood Pressure 146/89 H 126/80 H Blood Pressure Mean 108 95 Pulse Ox 100 99 Oxygen Delivery Method Room Air Room Air 12/06/24 16:00 12/06/24 17:32 12/06/24 17:58 Temperature 98 F Temperature Source Pulse Rate 67 64 64 Respiratory Rate 13 16 16 Blood Pressure 128/77 H 128/77 H Blood Pressure Mean 94 94 Pulse Ox 98 97 97 Oxygen Delivery Method MDM MDM MDM Narrative Medical decision making narrative: HISTORY OF PRESENT ILLNESS: 74-year-old male presents with concern for feeling off balance. Went to bed. He notes the bed felt like he was moving. He denies chest pain or shortness of breath. He notes symptoms are worse when rising from a seated position. He denies any syncope. Denies any leg swelling. Denies any bleeding diathesis. Notes he drinks plenty of water. Denies vomiting or diarrhea. Notes he exercises regularly and had no issues with exercise recently. REVIEW OF SYSTEMS: Pertinent positives: Dizziness, ataxia Pertinent negatives: Chest pain, shortness of breath PHYSICAL EXAM: Nursing triage notes reviewed, Vital signs reviewed Constitutional: please see mdm HENT: MMM Eyes: Pupils equal round and reactive to light, Extraocular muscles intact Neck: No stridor, no JVD, full neck ROM Lungs: Clear to auscultation, No wheezing or rales. No increased work of breathing, no conversational dyspnea, no accessory muscle use, no nasal flaring. No respiratory distress noted Heart: Regular rate and rhythm, No murmurs, No rubs and No gallops, 2+ distal pulses (radial, femoral, posterior tibial) in all extremities Abdomen: Soft, there is no tenderness, rigidity, rebound or guarding, no obvious peritoneal signs, no palpable pulsatile abdominal masses, no auscultated abdominal bruit : No CVAT Extremities: No edema Neuro: Alert and oriented x3, neuro exam at baseline, cranial nerves II through XII are intact. No pain with extraocular muscle movement. There is negative test of skew. 5 of 5 strength in upper and lower extremities in flexion extension. Intact sensation to light touch in upper and lower extremity dermatomes. No truncal or extremity ataxia. No dysdiadochokinesia. Normal gait. 2+ reflexes in upper and lower extremities. No meningeal signs. Negative Babinski. NIH of 0. Negative test of skew, no nystagmus. Skin: No rash or lesions noted MEDICAL DECISION MAKING: Chief Complaint: Dizziness External records reviewed: Reviewed prior imaging studies. No evidence imaging of the brain Factors affecting care: BPH, hypothyroidism, GERD, CKD Social determinants of health: none History obtained from others: none Consults: none [facility] Narrative: The patient was initially hemodynamically stable, afebrile. Exam without focal neurologic deficits. No extremity, truncal or gait ataxia noted. I considered the following differential diagnosis: Arrhythmia, anemia, electrolyte disturbance, posterior circulation CVA, ACS, dehydration, peripheral vertigo Triage labs and images were obtained secondary to poor department dynamics including high volume and high acuity. After evaluating patient I added CT scan of the head, CTA of the head and neck, troponin ALL IMAGES (IF OBTAINED) HAVE BEEN PERSONALLY REVIEWED AND INTERPRETED BY MYSELF. CBC without leukocytosis, severe anemia, no thrombocytopenia. No evidence of coagulopathy BMP without significant Alyson abnormalities, no sign of metabolic acidosis or endorgan hypoperfusion with a normal bicarb and anion gap respectively. Noted CKD that is at baseline I have personally reviewed the patient's chest x-ray. Chest x-ray is unremarkable for pulmonary edema, pneumothorax, pneumonia or focal cardiopulmonary abnormality. High-sensitivity troponin is negative, no evidence of myocardial ischemia I have personally reviewed the patient's chest x-ray. Chest x-ray is unremarkable for pulmonary edema, pneumothorax, pneumonia or focal cardiopulmonary abnormality. CT scan of the head negative CTA head and neck negative High-sensitivity troponin is negative, no evidence of myocardial ischemia The synthesis of the patient's history, physical exam, chest x-ray was no acute life-limiting etiology. Specifically no evidence of ICH, dissection. Exam with NIH 0, no nystagmus, no skew deviation is not consistent with posterior circulation CVA. No clear etiology-suspicious that may be some orthostasis or peripheral vertigo. I did prescribe as needed meclizine. Strict return precautions were discussed. The patient and/or family, caregivers express understanding. The patient and/or family, caregivers agrees with the plan. Shared decision making: I will have a discussion with the patient and or visitors regarding risk/benefits of further testing or admission. They will be made aware of of the risk/benefits inherent in this decision they will be given the opportunity to voice understanding. Total critical care time today provided was at least 0 minutes. This excludes separately billable procedures. Critical care time (if documented) is secondary to the patient having high probability of clinically significant/life threatening deterioration in the patient's condition which required my urgent intervention. Impression: 1. Dizziness 2. Orthostasis 3. History of CKD Dispo: discharge home This note was generated with [employer] dictation software. It may contain incorrect words, spelling, and punctuation that were not noted in review of the chart prior to signing. Lab Data Labs: Laboratory Results - last 24 hr 12/06/24 14:17 WBC 6.4 RBC 5.32 Hgb 16.8 H Hct 49.8 MCV 93.6 MCH 31.6 MCHC 33.7 RDW Std Deviation 45.4 H RDW Coeff of Yariel 13.2 Plt Count 238 MPV 9.6 Immature Gran % (Auto) 0.300 Neut % (Auto) 69.2 Lymph % (Auto) 23.7 Addison % (Auto) 5.6 Eos % (Auto) 0.3 Baso % (Auto) 0.9 Absolute Neuts (auto) 4.4 Absolute Lymphs (auto) 1.52 Nucleated RBC % 0 PT 14.0 INR 1.1 APTT 25.8 Sodium 140 Potassium 4.0 Chloride 112 H Carbon Dioxide 24.0 Anion Gap 4 L BUN 26 H Creatinine 1.61 H Estim Creat Clear Calc 37.63 Est GFR (MDRD) Af Amer 54 L Est GFR (MDRD) Non-Af 45 L BUN/Creatinine Ratio 16.1 Glucose 145 H Calcium 9.0 Troponin I High Sens 6 Radiography Diagnostic Testing: Clinical Impression(s) from Imaging Studies Chest X-Ray 12/06/24 14:04 IMPRESSION: Large hiatal hernia. Hyperinflation. Electronically Signed: Baldemar Sanchez MD at 14:35 EST , Brain CT 12/06/24 15:18 IMPRESSION: No acute intracranial pathology of the brain. Electronically Signed: Dev Sierra DO at 16:37 EST , Head/Neck CTA 12/06/24 15:18 IMPRESSION: Mild atherosclerotic calcifications at the right carotid bulb. No hemodynamically significant stenosis. Nonvisualization of the left P1 segment likely a normal variation. Electronically Signed: Dev Sierra DO at 16:48 EST , Discharge Plan Triage Chief Complaint: Dizziness ED Provider: Antonio Renee Dx/Rx/DC Orders Instructions: ED Dizziness, Uncertain Cause Prescriptions: New meclizine 25 mg tablet 25 mg PO TID PRN (Reason: dizziness) Qty: 30 0RF No Action famotidine 40 mg tablet 40 mg PO BID Qty: 60 2RF amlodipine 10 MG tablet 10 mg PO DAILY Qty: 90 0RF pravastatin 20 mg tablet 20 mg PO QPM dapagliflozin propanediol [Farxiga] 10 mg tablet 10 mg PO DAILY Primary Care Provider: Aury Owens Referrals: Aury Owens MD [Primary Care Provider] - Activity Restrictions/Additional Instructions: Thank you for trusting us with your care today! Your labs images were reassuring. No sign of damage to your brain, arteries leading to your brain, damage to your heart, significant issue with your electrolytes or blood counts. Your kidney function was at baseline with a creatinine of 1.61. Please take meclizine as needed. Please increase your oral hydration with electrolyte containing solutions including Body Armor, Pedialyte or Gatorade. Please return to the emergency department if your symptoms change or worsen. Specifically develop severe headache, if you lose consciousness, develop chest pain, develop incoordination, loss of movement, loss of sensation, slurred speech, visual disturbance. Please follow with your primary care physician for further outpatient evaluation and management. Print Language: Danish Disposition Disposition: Home, Self Care
--- NOTE | 2024-12-06 15:18 | CT_ITS ---
STUDY: CT BRAIN WITHOUT CONTRAST REASON FOR EXAM: Male, 74 years old. dizziness RADIATION DOSAGE (If Supplied By Facility): CTDIvol = ( 44.99 ) mGy, DLP = ( 796.11 ) mGycm TECHNIQUE: Transaxial CT imaging of the brain was performed without administration of intravenous contrast material. Individualized dose optimization techniques were used for this CT. COMPARISON: No relevant priors. FINDINGS: Normal soft tissue structures. Normal calvarium. Normal size ventricles and extra-axial spaces for the patient''s age. Normal white matter tracts of the cerebral hemispheres. Normal basal ganglia and thalami. Normal brainstem. Normal cerebellum. There is no intracranial hemorrhage. There are no findings of an acute ischemic infarction. Normal visualized paranasal sinuses. CT/Brain/Head without Contrast IMPRESSION: No acute intracranial pathology of the brain. Electronically Signed: Dev Sierra DO at 16:37 EST ,
--- NOTE | 2024-12-06 15:18 | CT_ITS ---
INDICATION: dizziness EXAMINATION: CTA HEAD, AND CTA NECK TECHNIQUE: Routine carotid CT angiogram protocol was performed without and with IV contrast. In addition, images were obtained of the [place]. NASCET criteria using the distal ICAs for comparison were used for evaluation of stenoses. 3D reconstructions were reviewed. The protocol utilizes one or more of the following dose reduction techniques: automated exposure control, adjustment of mA and/or kV according to patient size,and/or use of iterative reconstruction technique. IV Contrast dosage and agent: COMPARISON: FINDINGS: --CTA NECK: AORTIC ARCH AND BRANCHES: Normal anatomy, patent. RIGHT CCA: No occlusion, significant stenosis or dissection. RIGHT CAROTID BULB: Atherosclerotic calcifications with no hemodynamically significant stenosis. RIGHT ICA: No occlusion, significant stenosis or dissection. LEFT CCA: No occlusion, significant stenosis or dissection. LEFT ICA: No occlusion, significant stenosis or dissection. RIGHT VERTEBRAL ARTERY: No occlusion, significant stenosis or dissection. LEFT VERTEBRAL ARTERY: No occlusion, significant stenosis or dissection. NECK SOFT TISSUES: Unremarkable. --CTA HEAD: --Anterior circulation: ICAs: No significant stenosis at the intracranial/visualized segments. ACAs: No significant stenosis at the visualized segments. ACOM: Present. MCAs: No significant stenosis at the visualized segments. --Posterior circulation: PCOMs: Patent on the left. Nonvisualization on the right. yarder puncher: Nonvisualization of the left P1 segment likely a normal variation. BASILAR ARTERY: No significant stenosis. VERTEBRAL ARTERIES: No significant stenosis at the intradural/visualized segments. No evidence of intracranial aneurysm or vascular malformation. CT/CTA Head AND Neck W/ Contrast IMPRESSION: Mild atherosclerotic calcifications at the right carotid bulb. No hemodynamically significant stenosis. Nonvisualization of the left P1 segment likely a normal variation. Electronically Signed: Dev Sierra DO at 16:48 EST ,
[2024-12-06] MEDS: Meclizine HCl 25 MG Tablet PO (15:38)
[2024-12-06] MEDS: 0.9% Normal Saline (500mL Bag) 500 ML 999 ML IV (15:38)
[2024-12-06 16:00] VITALS: PULSE 67; RESP 13; O2SAT 98
[2024-12-06 16:00] LABS: Troponin-I HS 6 pg/mL (3.0-78.0)
[2024-12-06 17:32] VITALS: BP 128/77; PULSE 64; RESP 16; O2SAT 97
[2024-12-06 17:58] VITALS: BP 128/77; PULSE 64; RESP 16; TEMP 36.6; O2SAT 97
== END 2024-12-06 18:02 | disposition home or self-care (01) ==
PROVIDERS: Emergency Provider Emergency Medicine; PCP Family Medicine; Visit Provider Emergency Medicine
DX: R42 Dizziness and giddiness (principal); N18.30 Chronic kidney disease, stage 3 unspecified
CPT/HCPCS: 70450; 70496; 70498; 71045; 80048; 84484; 85025; 85610; 85730; 93005; 96360; 99284; Q9967; A4216

== ENCOUNTER → 2024-12-27 | Outpatient (CLI) | payer MEDICARE, SELFPAY ==
[2024-12-27 10:25] LABS: PSA,Total - Annual Screen 2.98 ng/mL (0.00-4.00)
== END | disposition home or self-care (01) ==
LOC: LAB 08:57
PROVIDERS: PCP Family Medicine; Referring Provider Urology; Visit Provider Urology
DX: Z12.5 Encounter for screening for malignant neoplasm of prostate (principal)
CPT/HCPCS: 84153; G0103